=== PATIENT | female | born 1965 | race Caucasian/White ===

== ENCOUNTER → 2018-01-20 13:27 | Outpatient (CLI) | payer MEDICARE, MEDICAID, SELFPAY ==
--- NOTE | 2018-01-20 13:36 | HPBI_ITS ---
MAMMOGRAPHY - BILATERAL SCREENING REASON FOR EXAM: Female, 52 years old. Routine annual screening examination. PERTINENT HISTORY: Aunt with breast cancer. TECHNIQUE: Digital bilateral breast chan (3D mammographic acquisition) in the CC and MLO projections. 2-D mediolateral oblique (MLO) and craniocaudad (CC) views of both breasts were obtained. CAD: Full Field Digital Mammography with Computer Added Detection was performed. COMPARISON: Comparison is made with prior examination dated January 11, 2017. FINDINGS: Breast Composition: The breasts are almost entirely fatty. There are no dominant masses or suspicious calcifications. Stable scattered bilateral benign-appearing calcifications. Stable appearance of the benign-appearing bilateral axillary lymph nodes. No other significant abnormalities are identified. There has been no significant change since the prior study. HPBI/SCREENING MAMM (CAD), BILAT IMPRESSION: Stable bilateral screening mammogram. Yearly follow-up mammogram recommended. (A) ASSESSMENT CATEGORY: BIRADS Category 2: Benign. A letter regarding these results will be sent to the patient by the facility within 30 days. Approximately 10% of breast cancers are not detected by mammography. A normal mammogram should not delay biopsy of a clinically suspicious abnormality. [id number] Electronically Signed: Marcello Adams MD at 8:52 EST Tel [phone], Service support ,
== END ==
PROVIDERS: PCP Internal Medicine; Visit Provider Obstetrics & Gynecology
DX: Z12.31 Encounter for screening mammogram for malignant neoplasm of breast (principal)
CPT/HCPCS: 77063; 77067

== ENCOUNTER 2019-11-02 17:20 | Emergency (ER) | payer MEDICARE, SELFPAY ==
[2019-11-02 17:21] VITALS: BP 150/75; PULSE 104; RESP 20; TEMP 36.7; O2SAT 97; BMI 39.9
--- NOTE | 2019-11-02 17:52 | CT_ITS ---
STUDY: CT PELVIS WITH CONTRAST REASON FOR EXAM: Female, 54 years old. Perianal abscess. RADIATION DOSAGE (If Supplied By Facility): CTDIvol = ( 28.21 ) mGy, DLP = ( 958.10 ) mGycm TECHNIQUE: Transaxial imaging of the pelvis was performed without oral contrast. Contrast was administered intravenously. Individualized dose optimization techniques were used for this CT. COMPARISON: None. FINDINGS: Extensive bilateral perirenal abscess is seen with posterior extensions. Soft tissue air and fluid densities extending to both inferior bladder. On the right, greatest dimension of the abscess is approximately 10.3 cm. On the left, greatest dimension of the abscess is approximately 8.1 cm. There is also a 3 cm air-filled cavity that crosses the midline apparently anterior to the anus. There is relatively mild adjacent subcutaneous induration. There is no extension of abscess into the pelvic cavity. Normal urinary bladder. Normal visualized small intestine. Normal visualized colon. There is no pelvic fluid. There is no pelvic lymphadenopathy or mass lesion. Normal visualized uterus. Normal visualized pelvic arteries. Normal osseous structures. CT/Pelvis WITH IV Contrast IMPRESSION: Moderately large complex bilateral perianal abscess, which do not extend into the pelvic cavity. Electronically Signed: Zen Brown MD at 19:00 EST , Service support ,
--- NOTE | 2019-11-02 18:02 | ED.DCSUM_ITS ---
History of Present Illness Chief Complaint: Abscess Informant: Patient Onset: Days - 2-3 Context: Gradual Onset Timing: Continuous Quality: Sore Location: Buttocks/anus Current Severity: Severe Maximum Severity: Severe Worsened by: Sitting, palpation, bowel movement Relieved by: Releasing pressure on affected area Associated Symptoms: Decreased appetite. No fevers or abdominal pain. Narrative: 54-year-old female with a history of boils, presents with what felt like another one, it started in her right buttock close to her anus, quickly spread into both buttocks and around her anal area. She saw nurse practitioner at her PCPs office yesterday, they trey a line around it and put her on Keflex, she states it is worse that she came to the ER. She is a diabetic. - Past Medical History (1) Type 2 diabetes mellitus Status: Chronic (2) COPD (chronic obstructive pulmonary disease) Status: Chronic (3) Hypertension Status: Chronic (4) Hyperlipidemia Status: Chronic Past Medical History - Allergies and Home Meds Allergies/Adverse Reactions: Allergies No Known Allergies Allergy (Verified 11/02/19 17:21) Primary Care Physician: Princess Kwok MD [Primary Care Provider] - Smoking Status: Current every day smoker Review of Systems General: Reports: Malaise. Denies: Chills, Fever, Sweats Eyes: Denies: Visual changes - bilaterally, Diplopia ENT: Denies: Rhinorrhea, Sore throat Cardiovascular: Denies: Chest pain, Palpitations Respiratory: Denies: Dyspnea, Cough, Dyspnea on exertion Gastrointestinal: Reports: Nausea, Diarrhea, - - Rectal and buttock pain. Denies: Abdominal pain, Vomiting, Melena, Hematochezia Genitourinary: Denies: Dysuria, Hematuria, Frequency Musculoskeletal: Denies: Back pain, Swelling, Extremity Pain Skin: Reports: Rash - Redness on buttocks, Abscess. Denies: Wounds Neurological: Denies: Headache, Weakness, Numbness Physical Exam Vital Signs/Narrative: Vital Signs Temp Pulse Resp BP Pulse Ox 11/02/19 17:21 98.1 F 104 H 20 H 150/75 H 97 Inital Vital Signs reviewed: Yes General: Well nourished, Well developed, Obese, No Acute Distress Head: Normocephalic, Atraumatic Eyes: Perrl, EOMI ENT: Moist mucous membranes, No rhinorrhea Neck: Supple, Nontender Cardiovascular: Regular rate, Regular rhythm, No murmurs, Tachycardia - Mild Respiratory: No distress, CTA bilaterally, Chest nontender Abdomen: Soft, Nontender, Nondistended, Normal bowel sounds Rectal: Tenderness - Extremely tender, very limited GEORGI. No discrete abscess seen, entire perianal area is indurated, erythematous, tender. Back: Nontender, Normal Inspection Extremities: Nontender, No edema Skin: No Trauma, Rash - Indurated very tender erythema approximately 14-16 cm in diameter encompassing both medial buttocks and the perianal area, all of which is tender. No discharge from anywhere even on digital rectal exam. Neurological: Alert, Oriented x3, Cranial nerves II-XII grossly intact, Normal Strength, Normal Sensation Psychological: Normal affect, Normal Mood Diagnostic/Tx/Re-eval Impressions Pelvis CT 11/02/19 17:52 IMPRESSION: Moderately large complex bilateral perianal abscess, which do not extend into the pelvic cavity. Electronically Signed: Zen Brown MD at 19:00 EST , Service support , 11/02/19 17:52 CT Pel [Pelvis WITH IV Contrast] [CT] Stat Laboratory Results 11/02/19 11/02/19 18:00 18:00 WBC 32.7 H* RBC 5.15 Hgb 14.3 Hct 44.3 MCV 86.0 MCH 27.8 MCHC 32.3 RDW Std Deviation 44.2 H RDW Coeff of Cecilia 14.0 Plt Count 377 MPV 10.1 Immature Gran % (Auto) 1.100 H Neut % (Auto) 85.7 H Lymph % (Auto) 5.6 L [place] % (Auto) 7.0 Eos % (Auto) 0.2 Baso % (Auto) 0.4 Absolute Neuts (auto) 28.0 H Absolute Lymphs (auto) 1.84 Nucleated RBC % 0 Differential Comment SCANNED Diff Path Review May foll Sodium 136 Potassium 3.5 Chloride 104 Carbon Dioxide 23.0 Anion Gap 9 BUN 12 Creatinine 0.79 Estim Creat Clear Calc 63.64 Est GFR (MDRD) Af Amer 97 Est GFR (MDRD) Non-Af 80 BUN/Creatinine Ratio 15.2 Glucose 229 H Calcium 10.0 - Medical Decision Making Patient clinically and hemodynamically stable, able to ambulate to and from the bathroom. Clinically appears to be at least perianal abscesses, but could be extensive and with her symptoms and diabetes, CT was obtained. It shows that it is quite large, complex bilateral and perianal without extension further up into the pelvic cavity. She has a white count of 32.7. Vancomycin is ordered. She is not clinically septic. Plan is for admission for further care and likely operative drainage. I think this is too big to get an adequate incision and drainage clinically in the ER. Discussed with Dr. Ruggiero. He reviewed the imaging. There is air in the abscess cavity and quite a bit of it, clinically it is closed. Given that context he feels this patient may have necrotizing fasciitis and needs colorectal surgery which is not available at this hospital. He recommends she be evaluated for operative intervention tonight. Therefore I kept her n.p.o. and in addition to vancomycin added Zosyn and Flagyl. The patient understands, prefers to be sent to [facility] if she needs to be transferred, she is accepted by colorectal to the ER for further evaluation. She is clinically and hemodynamically stable and I see no difference in the erythema compared with the line that was drawn yesterday, and my initial evaluation on reexam. ED Disposition - Plan for ED Patient: Disposition: [facility] Diagnosis: Perianal abscess Referrals: Princess Kwok MD [Primary Care Provider] -
[2019-11-02] MEDS: Ondansetron 4 MG/2 ML Vial IV (18:07)
[2019-11-02] MEDS: Morphine 4 MG/ML Syringe IV ×2 (18:07→21:41)
[2019-11-02 18:16] LABS: Absolute Lymphocyte Count 1.84 X10^3/uL (0.83-4.51); Basophil# 0.14 X10^3/uL; Basophil% 0.4 % (0-1); Eosinophil# 0.08 X10^3/uL; Eosinophils% 0.2 % (0-5); Hematocrit 44.3 % (37-47); Hemoglobin 14.3 g/dL (12.0-15.0); Lymphocyte # 1.84 X10^3/ul (4.0); Lymphocyte % 5.6 % (19-41); Mean Corp Hgb Conc 32.3 g/dL (32-36); Mean Corpuscular Hgb 27.8 pg (27.0-32.0); Mean Platelet Vol. 10.1 fl (6.2-12.0); Monocyte# 2.28 X10^3/uL; NRBC Flagged by Analyzer 0 % (0-5); Neutrophil # 27.97 X10^3/uL (2.7-7.7); Neutrophil % 85.7 % (47-70); POSITIVE COUNT YES; POSITIVE DIFFERENTIAL YES; Platelet Count 377 K/mm3 (150-450); RBC Distribution Width SD 44.2 fl (35.1-43.9); Red Blood Count 5.15 M/mm3 (4.2-5.4)
[2019-11-02 18:32] LABS: Anion Gap 9 (5-15); BUN 12 mg/dL (7-18); BUN/Creat Ratio 15.2 RATIO (10-20); Chloride 104 mmol/L (98-107); Creatinine, Serum 0.79 mg/dL (0.55-1.02); EST Glomerular Filtration Rate 80 mL/min (>60); Est Glom Filt Rate - Afr Amer 97 mL/min (>60); Estimated Creatinine Clearance 63.64 ml/min; Glucose 229 mg/dL (74-106); Potassium 3.5 mmol/L (3.5-5.1); Sodium Level 136 mmol/L (136-145)
[2019-11-02 19:01] LABS: Differential Indicated SCAN CRITERIA MET; White Blood Count 32.7 K/mm3 (4.4-11.0)
[2019-11-02 19:03] LABS: Differential Comment SCANNED
[2019-11-02 21:45] VITALS: BP 151/81; PULSE 91; RESP 18; O2SAT 97
[2019-11-03 12:33] LABS: Pathologist Review Reviewed
== END 2019-11-02 21:46 | disposition short-term general hospital (02) ==
PROVIDERS: Emergency Provider Emergency Medicine; Family Provider Internal Medicine; PCP Internal Medicine
DX: K61.0 Anal abscess (principal); E11.9 Type 2 diabetes mellitus without complications; J44.9 Chronic obstructive pulmonary disease, unspecified; I10 Essential (primary) hypertension; E78.5 Hyperlipidemia, unspecified; F17.200 Nicotine dependence, unspecified, uncomplicated; E66.9 Obesity, unspecified; Z79.2 Long term (current) use of antibiotics; Z79.84 Long term (current) use of oral hypoglycemic drugs; Z79.899 Other long term (current) drug therapy
CPT/HCPCS: 72193; 80048; 85025; 96361; 96365; 96366; 96367; 96375; 96376; 99285; J7030; J7040; Q9967; J2405

== ENCOUNTER → 2019-12-15 12:57 | Outpatient (CLI) | payer MEDICARE, SELFPAY ==
[2019-11-30 10:56] VITALS: BMI 40.0
--- NOTE | 2019-12-15 12:59 | ECHOCS_ITS ---
Reason For Study: Pre Op Procedure This was a 2D Doppler, Color Flow transthoracic echocardiogram. The study was technically difficult. Contrast injection was performed. Exam performed in department. Left Ventricle Severe concentric left ventricular hypertrophy. Moderate assymetric septal hypertrophy. The estimated ejection fraction is 75 %. No regional wall motion abnormalities noted. Right Ventricle Normal size and thickness. Normal systolic function. Atria Normal left atrium. Normal right atrium. Normal atrial septum. Mitral Valve The mitral valve is structurally normal. No prolapse or stenosis seen. No evidence of AC. Tricuspid Valve Normal tricuspid valve. Unable to estimate RV systolic pressure due to insufficient tricuspid regurgitant envelope. Aortic Valve Normal aortic valve. Trisinus/trileaflet aortic valve. Pulmonic Valve Normal pulmonic valve. Great Vessels Normal aortic root. Normal arch. Normal inferior vena cava. Inferior vena cava collapse with sniff. Pericardium/Pleural No pericardial effusion. Medication 22 gauge I.V. with prn adaptor inserted into left arm. Diluted definity 2ml given slow IV push to enhance endocardial definition. MMode/2D Measurements & Calculations LVIDd: 3.5 cm IVSd: 1.9 cm LVOT diam: 2.1 cm LVIDs: 2.5 cm LVPWd: 1.9 cm RVDd: 3.0 cm FS: 29.4 % LVOT area: 3.5 cm2 LAV(MOD-bp): 44.7 ml LA A4 area: 16.9 cm2 RA A4 area: 11.7 cm2 LAV(MOD-bp) Indexed: 23.1 ml/m2 LAV(MOD-sp2): 45.9 ml LAV(MOD-sp4): 38.2 ml Time Measurements MV dec time: 0.20 sec Doppler Measurements & Calculations MV E max amol: 51.6 cm/sec Lat Peak E' Amol: 5.7 cm/sec Med Peak E' Amol: 8.1 cm/sec MV A max amol: 99.7 cm/sec E/E' lat: 9.0 E/E' med: 6.4 MV E/A: 0.52 MV V2 max: 117.5 cm/sec MV P1/2t max amol: 73.2 cm/sec Ao V2 max: 145.4 cm/sec MV max P.5 mmHg MV P1/2t: 66.1 msec Ao max P.5 mmHg MV V2 mean: 61.4 cm/sec MV dec slope: 324.3 cm/sec2 Ao V2 mean: 93.7 cm/sec MV mean P.8 mmHg Ao mean P.1 mmHg MV V2 VTI: 18.8 cm MVA(P1/2t): 3.3 cm2 Ao V2 VTI: 23.8 cm MVA(VTI): 3.8 cm2 HEMALATHA(I,D): 3.0 cm2 HEMALATHA(V,D): 2.6 cm2 LV V1 max: 106.1 cm/sec SV(LVOT): 72.3 ml PA V2 max: 64.5 cm/sec LV V1 max P.5 mmHg LV V1 mean P.4 mmHg LV V1 mean: 70.8 cm/sec LV V1 VTI: 20.4 cm Interpretation Summary Severe concentric left ventricular hypertrophy. The estimated ejection fraction is 75 %. No evidence of AC. Unable to estimate RV systolic pressure due to insufficient tricuspid regurgitant envelope. The study was technically difficult. Contrast injection was performed. Ordering Physician: Torin Whittington Referring Physician: Princess Kwok Performed By: Inderjit Gutierrez RCS
== END ==
PROVIDERS: Family Provider Internal Medicine; PCP Internal Medicine; Referring Provider Internal Medicine Cardiovascular Disease; Visit Provider Internal Medicine Cardiovascular Disease
DX: Z01.810 Encounter for preprocedural cardiovascular examination (principal); Q24.8 Other specified congenital malformations of heart; R00.2 Palpitations; I10 Essential (primary) hypertension; E11.9 Type 2 diabetes mellitus without complications; E78.5 Hyperlipidemia, unspecified; G47.33 Obstructive sleep apnea (adult) (pediatric); J44.9 Chronic obstructive pulmonary disease, unspecified
CPT/HCPCS: 93306; Q9957; A4216; C8929

== ENCOUNTER → 2019-12-30 10:26 | Outpatient (CLI) | payer MEDICARE, SELFPAY ==
[2019-11-30 10:56] VITALS: BMI 40.0
--- NOTE | 2019-12-30 10:26 | STEWCON_ITS ---
Reason For Study: PEROPERATIVE Stress Results Protocol: Riccardo Protocol WITH DEFINITY Maximum Predicted HR: 165 bpm Target HR: 140 bpm % Maximum Predicted HR: 73 % DurationHeart Rate Stage (mm:ss) (bpm) BP BASELINE 88 152/98 STAGE 1 5:02 116 164/90 STAGE 2 (MANUAL) 1:42 120 182/82 RECOVERY 86 152/98 Stress Duration: 6:44 mm:ss Maximum Stress HR: 120 bpm Baseline Echocardiogram Findings The estimated ejection fraction is 65 %. Stress Echo Wall motion Data Resting WM Intermediate WM Stress WM Resting Wall Motion Wall Motion Stress No regional wall motion No regional wall motion abnormalities noted. abnormalities noted. EKG Data The baseline ECG displays normal sinus rhythm. The patient exercised according to the regular Riccardo protocol for a total duration of 6:44. The maximum heart rate attained was 120 beats per minute. This was 72% of maximum predicted heart rate. The patient exercised into stage 2 of the Riccardo protocol. During stress, there were no ST or T wave changes noted to suggest ischemia. No clinical angina was noted. Interpretation Summary The estimated ejection fraction is 65 %. Normal, adequate, treadmill echocardiogram. Negative for ischemia by EKG and echocardiographic criteria. No anginal symptoms noted. Rare PVCs noted. Hypertensive blood pressure response to exercise. Below average exercise capacity for age. Test terminated due to dyspnea and leg discomfort and fatigue. Although the patient did not reach target heart rate, heart rate pressure product of 21,294 demonstrated an adequate testing. Decrease sensitivity due to poor echo windows requiring Definity agent. Patient tolerated procedure well. No complications. The study was technically difficult. Contrast injection was performed. Ordering Physician: Torin Whittington Referring Physician: Torin Whittington Performed By: Macey Nelson RDCS
== END ==
PROVIDERS: Family Provider Internal Medicine; PCP Internal Medicine; Referring Provider Internal Medicine Cardiovascular Disease; Visit Provider Internal Medicine Cardiovascular Disease
DX: Z01.810 Encounter for preprocedural cardiovascular examination (principal); I10 Essential (primary) hypertension; E11.9 Type 2 diabetes mellitus without complications; E78.5 Hyperlipidemia, unspecified; G47.33 Obstructive sleep apnea (adult) (pediatric); Q24.8 Other specified congenital malformations of heart; J44.9 Chronic obstructive pulmonary disease, unspecified; R00.2 Palpitations
CPT/HCPCS: 93017; 93350; Q9957; A4216; C8928

== ENCOUNTER → 2020-06-28 13:02 | Outpatient (CLI) | payer MEDICARE, SELFPAY ==
[2020-06-01 10:59] VITALS: BMI 44.0
[2020-06-28 15:19] LABS: Hematocrit 45.8 % (37-47); Hemoglobin 14.3 g/dL (12.0-15.0); Mean Corp Hgb Conc 31.2 g/dL (32-36); Mean Corpuscular Hgb 28.1 pg (27.0-32.0); Mean Corpuscular Volume 90.2 fL (81-99); Mean Platelet Vol. 10.1 fl (6.2-12.0); Platelet Count 350 K/mm3 (150-450); RBC Distribution Width CV 13.4 % (11.6-14.6); Red Blood Count 5.08 M/mm3 (4.2-5.4); White Blood Count 15.4 K/mm3 (4.4-11.0)
[2020-06-28 15:35] LABS: Anion Gap 7 (5-15); BUN 12 mg/dL (7-18); BUN/Creat Ratio 15.8 RATIO (10-20); Chloride 102 mmol/L (98-107); Creatinine, Serum 0.76 mg/dL (0.55-1.02); EST Glomerular Filtration Rate 84 mL/min (>60); Est Glom Filt Rate - Afr Amer 102 mL/min (>60); Glucose 315 mg/dL (74-106); Potassium 3.8 mmol/L (3.5-5.1); Sodium Level 134 mmol/L (136-145)
[2020-06-28 15:41] LABS: Hemoglobin A1c 10.5 % (3.8-5.6)
== END ==
PROVIDERS: PCP Internal Medicine; Referring Provider Physician Assistant; Visit Provider Physician Assistant
DX: Z01.818 Encounter for other preprocedural examination (principal); I10 Essential (primary) hypertension; E11.65 Type 2 diabetes mellitus with hyperglycemia
CPT/HCPCS: 36415; 80048; 83036; 85027

== ENCOUNTER → 2020-09-01 15:45 | Outpatient (CLI) | payer MEDICARE, MEDICAID, SELFPAY ==
[2020-06-01 10:59] VITALS: BMI 44.0
--- NOTE | 2020-09-01 16:00 | RAD_ITS ---
STUDY: X-RAY - LUMBAR SPINE REASON FOR EXAM: Female, 55 years old. low back pain TECHNIQUE: 5 view(s) of the lumbar spine were obtained. COMPARISON: None FINDINGS: Normal lumbar lordosis. There is no substantial scoliosis. There is a normal alignment of the vertebrae. There is multilevel endplate spondylosis of the lumbar vertebrae. Loss of disc space at L2-L3, L4-L5 and L5-S1, with facet arthropathy in the lower levels. Laminectomies with posterior fusion and disc spacer at L3-L4. There is no demonstrated fracture. There is no demonstrated spondylolysis of the pars interarticulares. The soft tissue structures are unremarkable. RAD/L/S Spine Min 4 Views IMPRESSION: 1. L3-L4 posterior fusion with laminectomy. 2. Degenerative disc disease at L2-L3, L4-L5 and L5-S1 with facet arthropathy. Electronically Signed: Dorian Merino MD ([place]) at 12:29 EDT , Service support ,
[2020-09-01 17:25] LABS: Amphetamine Urine VISTA NEGATIVE (<1000 ng/mL); Barbiturate Urine VISTA NEGATIVE (< 200 ng/mL); Benzodiazepine Urine VISTA NEGATIVE (< 200 ng/mL); Cocaine Urine VISTA NEGATIVE (< 300 ng/mL); Ecstacy Urine VISTA NEGATIVE (< 500 ng/mL); Methadone Urine VISTA NEGATIVE (< 300 ng/mL); PCP Urine VISTA NEGATIVE (< 25 ng/mL); THC Urine VISTA NEGATIVE (< 50 ng/mL); Vista UDS pH Range 5
== END ==
PROVIDERS: PCP Internal Medicine; Referring Provider Anesthesiology; Visit Provider Anesthesiology
DX: M54.16 Radiculopathy, lumbar region (principal); M96.1 Postlaminectomy syndrome, not elsewhere classified; F11.20 Opioid dependence, uncomplicated
CPT/HCPCS: 72110; 80307

== ENCOUNTER → 2020-09-13 07:04 | Outpatient (CLI) | payer MEDICARE, MEDICAID, SELFPAY ==
[2020-06-01 10:59] VITALS: BMI 44.0
--- NOTE | 2020-09-13 07:21 | MRI_ITS ---
STUDY: MRI LUMBAR SPINE WITH AND WITHOUT CONTRAST REASON FOR EXAM: Female, 55 years old. radiculopathy, post lami syndrome, LBP, LEFT LEG PAIN TECHNIQUE: Standardized fat and water weighted pulse sequences were obtained in the sagittal and axial planes. IV DOTAREM 20ML was administered for the contrast portion of the examination. COMPARISON: None FINDINGS: T12-L1: Normal endplates. Normal disc height, hydration and morphology. Normal bilateral facet joints. Normal central canal and bilateral lateral recesses. Normal bilateral intervertebral neural foramina. Normal lumbar lordosis. There is no substantial scoliosis. Normal conus medullaris that terminates at the L1/L2. L1-2: Normal endplates. Normal disc height, hydration and morphology. Normal bilateral facet joints. Normal central canal and bilateral lateral recesses. Normal bilateral intervertebral neural foramina. L2-3: Normal endplates. Normal disc height, hydration and morphology. Normal bilateral facet joints. Normal central canal and bilateral lateral recesses. Normal bilateral intervertebral neural foramina. L3-4: Status post discectomy, interbody fusion, posterior decompression, and transpedicular fixation with anatomic alignment and no spinal stenosis or neural foraminal stenosis. L4-5: Mild bilateral facet hypertrophy and ligament flavum hypertrophy. Mild broad disc protrusion produces mild spinal stenosis with mild bilateral lateral recess stenosis and mild bilateral neural foraminal stenosis. L5-S1: Mild bilateral facet hypertrophy. 5 mm retrolisthesis of L5 on S1 with a mild broad disc protrusion and a large right paracentral disc extrusion produces moderate spinal stenosis, moderate right lateral recess stenosis with abutment of the right S1 nerve root and moderate bilateral neural foraminal stenosis. Normal visualized sacral ala. Normal visualized paraspinous soft tissue structures. There is no demonstrated abnormal enhancement. MRI/Spine Lumbar W/WO Contrast IMPRESSION: Postsurgical changes and degenerative disc disease as described above. Electronically Signed: Kyle Loza MD at 11:30 EDT Tel , Service support ,
== END ==
PROVIDERS: PCP Internal Medicine; Referring Provider Anesthesiology; Visit Provider Anesthesiology
DX: M54.16 Radiculopathy, lumbar region (principal); M96.1 Postlaminectomy syndrome, not elsewhere classified
CPT/HCPCS: 72158; A9575

== ENCOUNTER 2020-11-01 07:46 | Outpatient (RCR) | payer MEDICARE, SELFPAY ==
[2020-06-01 10:59] VITALS: BMI 44.0
--- NOTE | 2020-11-01 08:53 | HP.PTEVAL ---
Patient's Visit Information OSVALDO PERALES is a 55 year old F referred to Physical Therapy by Dr. Killian Eli MD with a diagnosis of LBP,RADICULOPATHY LUMBAR REGION. Date of Evaluation: 11/01/20 Physical Therapist: Martín Botello, PT, Cert MDT, OCS - Visit Plan Frequency: 2x /Week Duration: 4 Weeks Plan: PT INTERVENTION AQUATIC THERAPY FOR LUMBAR ROM,LE STRENGTHENING,POSTURAL EX'S,DLS AND LE FLEXABITY - Subjective This 55 y/o female presents to physical therapy with lumbar radiculopathy. Patient has had LBP and and leg symptoms since 2010. Patient symptoms incidous onset no trauma or injury. Patient ocation is symmtrical lumbar L>R lateral aspects. Pain desribed as sharp ache .Seen pain management plans to do epidural injections.Provided arrthritis CELEBREX. Pateint had MRI and x-rays in Oct showed DDD 5mm retrolotheisis and protruding disc. Pateint has h/o of epidutral injections in past in [facility]. Aggravating factors bending,lifting,wailking ,standing sitting ,driving . Alleviating factors rest ,pushing cart. C/O parathesia tingling L> R . coughing/sneezing -. Bowel/bladder -. Patient PT in past water ex's.Patient symptoms affects ability to work affects housework tasks. Patient symptoms affecst QOL.Patient has h/o lumbar fusion 2010. SOCIAL: . VOCATION: disability - Pain Bilateral Back Pain Intensity (Out of 10): 8 Pain Intensity Range: 10 Bilateral Lower Extremity Pain Intensity (Out of 10): 8 Pain Intensity Range: 10 - Objective POSTURE: mild foward posture. GAIT: reciprocal pattern antalgic gait mild foward posture. NEURO:c/o parathesia/tingling in legs,reflexes L3-4,4-5,L5-S1 1/3. PALAPTION: tender L-S R>L. MMT: quads/hams 4-/5,hip flexion 3+/5 ,ankle 4/5. FLEXABLITY: hams mod tight. LUMBAR ROM: flexion mod loss pain,extension mod loss pain ,side glides mod loss. SYMMTRIES: align - Special Tests L/S Slump test left side: Negative L/S Slump test right side: Negative L/S Left Straight Leg Raise: Positive L/S Right Straight Leg Raise: Positive Lumbar Standing: Flexion - Mechanical Response: No effect Lumbar Standing: Flexion - Symptoms During Testing: Increases Lumbar Standing: Flexion - Symptoms After Testing: Worse Lumbar Standing: Extension - Mechanical Response: No effect Lumbar Standing: Extension - Symptoms During Testing: Increases Lumbar Standing: Extension - Symptoms After Testing: Worse Lumbar Standing: Right Side Glides - Mechanical Response: No effect Lumbar Standing: Right Side [place] - Symptoms During Testing: No effect Lumbar Standing: Right Side [place] - Symptoms After Testing: No effect Lumbar Standing: Left Side [place] - Mechanical Response: No effect Lumbar Standing: Left Side [place] - Symptoms During Testing: No effect Lumbar Standing: Left Side [place] - Symptoms After Testing: No effect - Goals Goal 1:: I with Aquatic therapy program Goal Time Frame: 4-6 Weeks Goal 2:: Decrease lumbar radiculopathy by 40 % or > to improve function and ADL's. Goal Time Frame: 4-6 Weeks Goal 3:: Patient to improve lumbar ROM for function of recovery Goal Time Frame: 4-6 Weeks Goal 4:: Patient to increase strength BLE by 4/5 to improve function with standing and walking Goal Time Frame: 4-6 Weeks Goal 5:: Patient to improve back owestry score by 5 points or > to improve function. Goal Time Frame: 4-6 Weeks - Rehabilitation Potential Physical Therapy Diagnosis: This patient has h/o lumbar fusion 2011 with impairments with pain,loss ROM ,decrease strength BLE ,weakness core stabilizers thus will benifit from skilled PT Rehabilitation Potential: Good - Anticipated Interventions Patient/Client Instruction: Educate patient on: Condition, Plan of Care For the Purpose of:: To decrease pain, To increase ROM, To improve muscle performance and motor function, To improve ability to perform ADL's, To increase tolerance to activity/condition/position, To improve performance and independence with ADL's, To improve ability of physical actions for home/community/work/leisure, To improve gait and locomotor functions, To decrease soft tissue restriction, To increase flexibility/ROM, To improve health and function, To improve ability to perform tasks related to life management Therapeutic Exercise to Include: Strength training, Postural training, Flexibilty training, In an aquatic setting, Dynamic Lumbar Stabilization For the Purpose of:: To decrease pain, To improve muscle performance and motor function, To increase tolerance to activity/condition/position, To improve performance and independence with ADL's, To improve ability of physical actions for home/community/work/leisure, To improve health of tissue, To decrease soft tissue restriction, To increase flexibility/ROM, To reduce risk of recurrence, To improve ability to perform tasks related to life management Thank you for the opportunity to evaluate your patient. For Medicare and Medicare HMO plans, please review the plan of care and approve it. It will need to be FAXED BACK to us at [phone] for Medicare purposes. For Medicare only, by signing this I certify the plan of care. Please let me know if there are questions or concerns regarding this plan of care. Physician Signature: Date:
== END 2020-11-01 19:00 | disposition home or self-care (01) ==
LOC: PT 07:46
PROVIDERS: PCP Internal Medicine; Referring Provider Anesthesiology; Visit Provider Anesthesiology
DX: M54.16 Radiculopathy, lumbar region (principal)
CPT/HCPCS: 97162

== ENCOUNTER → 2021-01-12 20:16 | Outpatient (CLI) | payer MEDICARE, MEDICAID, SELFPAY ==
[2020-12-21 10:16] VITALS: BMI 50.6
== END ==
PROVIDERS: PCP Internal Medicine; Visit Provider Internal Medicine Critical Care Medicine
DX: G47.33 Obstructive sleep apnea (adult) (pediatric) (principal)
CPT/HCPCS: 95811

== ENCOUNTER → 2021-02-13 12:11 | Outpatient (CLI) | payer MEDICARE, MEDICAID, SELFPAY ==
[2020-12-21 10:16] VITALS: BMI 50.6
[2021-02-13 12:51] VITALS: PULSE 101; PULSE 105; PULSE 106; PULSE 107; PULSE 108; PULSE 89; PULSE 91; PULSE 96; O2SAT 92; O2SAT 93; O2SAT 94
--- NOTE | 2021-02-13 12:54 | CPS ---
Pt took a rest during the 2,3,and 4 minutes due to back and leg pain.
--- NOTE | 2021-02-13 13:51 | WT_ITS ---
PSN 6 Minute Walk Test - 6 Minute Walk Test 6 Minute Walk Test: 6 Minute Walk Test PSN:6-Minute Walk Test Start: 02/13/21 12:50 Freq: Status: Active Protocol: RESP.6MINW Document 02/13/21 12:51 [facility] (Rec: 02/13/21 12:57 [facility] [id number]) 6 Minute Walk Test Date Performed 02/13/21 Time Performed 12:30 Height 5 ft 2 in Weight: 102.965 kg Weight in Pounds 227.[address]: Dr Alvares Assistive device used: None Pre-test Oxygen Delivery Method Room Air Pulse Ox (%) 94 Pulse Rate (60-100 beats/min) 89 Dyspnea Sea Scale (0-10) 0.5 Exertion Sea Scale (6-20) 6 1st minute Oxygen Delivery Method Room Air Pulse Ox (%) 93 Pulse Rate (60-100 beats/min) 101 H 2nd minute Oxygen Delivery Method Room Air Pulse Ox (%) 93 Pulse Rate (60-100 beats/min) 105 H Number of Rests Taken 1 3rd minute Oxygen Delivery Method Room Air Pulse Ox (%) 92 Pulse Rate (60-100 beats/min) 96 Number of Rests Taken 1 4th minute Oxygen Delivery Method Room Air Pulse Ox (%) 93 Pulse Rate (60-100 beats/min) 106 H Number of Rests Taken 1 5th minute Oxygen Delivery Method Room Air Pulse Ox (%) 93 Pulse Rate (60-100 beats/min) 107 H 6th minute Oxygen Delivery Method Room Air Pulse Ox (%) 92 Pulse Rate (60-100 beats/min) 108 H Dyspnea Sea Scale (0-10) 2 Exertion Sea Scale (6-20) 11 Post-test Oxygen Delivery Method Room Air Pulse Ox (%) 94 Pulse Rate (60-100 beats/min) 91 Full Laps Walked 13 Partial Lap, Number of Tiles Walked 0 Total Distance Walked (ft) 767 02/13/21 12:54 Cardiopulmonary Services by Amber Grimaldo Pt took a rest during the 2,3,and 4 minutes due to back and leg pain. Initialized on 02/13/21 12:54 - END OF NOTE - Interpretation Interpretation: The patient was able to ambulate a total of 767 feet over the course of 6 minutes on room air with no assistive devices, but 3 breaks associated with back and leg pain. Patient did not experience significant desaturation and had an oxygen ashwin of 92%. Patient did have an element of tachycardia as high as 108 bpm. These findings are consistent with a musculoskeletal limitation exercise tolerance. - Recommendations Recommendations: No supplemental oxygen is indicated at this time. However, patient will need to be followed closely if musculoskeletal status improves.
== END ==
PROVIDERS: PCP Internal Medicine; Referring Provider Internal Medicine Critical Care Medicine; Visit Provider Internal Medicine Critical Care Medicine
DX: J44.9 Chronic obstructive pulmonary disease, unspecified (principal)
CPT/HCPCS: 94618

== ENCOUNTER → 2021-02-15 06:44 | Outpatient (CLI) | payer MEDICARE, MEDICAID, SELFPAY ==
[2020-12-21 10:16] VITALS: BMI 50.6
--- NOTE | 2021-02-15 15:30 | PFTCOMP_ITS ---
COMPLETE PULMONARY FUNCTION TEST INTERPRETATION Brief HPI: Patient is a 55 year old female, currently under the care of Dr. Alvares, who presents to [facility] for complete pulmonary function tests secondary to diagnosis of COPD. Respiratory therapist reports good effort and reproducible results. Interpretation: Forced expiration spirometry shows a moderate large airways obstructive ventilatory defect with an FEV1 of 65% predicted. There is no significant bronchodilator response by strict ATS criteria. Spirograms are of good quality and plateau slowly, indicating slowly emptying areas of the lungs. The respiratory flow volume loop shows decreased expiratory flow rates at high lung volumes consistent with small airways obstruction. Lung volumes by body plethysmography show an elevated total lung capacity at 5.59 L, 123% predicted. FRC and RV are elevated out of proportion. Lung volume measurements are consistent with hyperinflation and air-trapping. Diffusion capacity by carbon monoxide is normal at 80% predicted. The airway resistance is elevated. No previous pulmonary function tests were available for review. Impression: Irreversible moderate large airways obstructive ventilatory defect resulting in air trapping with hyperinflation
== END ==
PROVIDERS: PCP Internal Medicine; Referring Provider Internal Medicine Critical Care Medicine; Visit Provider Internal Medicine Critical Care Medicine
DX: J44.9 Chronic obstructive pulmonary disease, unspecified (principal)
CPT/HCPCS: 94060; 94726; 94729

== ENCOUNTER 2022-03-01 12:18 | Emergency (ER) | payer MEDICARE, MEDICAID, SELFPAY ==
[2022-03-01 12:19] VITALS: BP 187/105; PULSE 92; RESP 22; TEMP 36; O2SAT 94; BMI 39.9
--- NOTE | 2022-03-01 12:53 | EDS_ITS ---
HPI History of Present Illness Chief Complaint: Back Informant: patient Onset/Context/Timing Onset: Yesterday Injury: - (Getting out of car) Timing: Continuous Quality: Aching Location: Lumbar, Buttock and Left Leg Current Severity: Severe Maximum Severity: Severe Worsened by: improves with Bending Relieved by: Nothing Associated Symptoms Associated Symptoms: Radiation to Left Leg (To the ankle); Negative for Numbness, Tingling, Unable to Ambulate, Unable to Transfer, Urinary Retention, Urinary Incontinence, Constipation and Fecal Incontinence Narrative Narrative: Patient had a history of degenerative disc disease in her lumbosacral spine, she had remote surgery when she lived in [place] in her lumbar spine with some hardware there. She recently rode home from [place], they got home last night, she was out of the car several times on the way to use the restroom, but when she got out of the car at home last night she had sudden onset of this pain into her left buttock and down the left lower extremity. No weakness or numbness, no saddle anesthesia. [facility] Medical History (Updated 03/01/22 @ 14:[address] Luis M Morillo MD) COPD (chronic obstructive pulmonary disease) Essential hypertension Hyperlipidemia Left ventricular outflow obstruction Obstructive sleep apnea Palpitations Perirectal abscess (11/03/19) Pre-operative cardiovascular examination Type 2 diabetes mellitus Home Medications albuterol sulfate 1 aer IH Q4H PRN PRN 11/02/19 [History Last Taken Unknown] atorvastatin 40 mg PO DAILY 11/02/19 [History Last Taken Unknown] glimepiride 4 mg PO BID 11/02/19 [History Last Taken Unknown] losartan 100 mg PO DAILY 11/02/19 [History Last Taken Unknown] metformin 1,000 mg PO BID 11/02/19 [History Last Taken Unknown] sertraline 100 mg PO DAILY 11/02/19 [History Last Taken Unknown] umeclidinium 1 puff IH DAILY 11/02/19 [History Last Taken Unknown] ammonium lactate 5 % lotion 1 applic TOPICAL QD-BID PRN 11/18/19 [History Last Taken Unknown] aspirin 81 mg tablet,delayed release 81 mg PO DAILY 11/18/19 [History Last Taken Unknown] cyclobenzaprine 10 mg tablet 10 mg PO TID PRN 11/18/19 [History Last Taken Unknown] fluticasone 250 mcg-salmeterol 50 mcg/dose blistr powdr for inhalation 1 inh INHALATION BID 11/18/19 [History Last Taken Unknown] nitroglycerin 0.4 mg sublingual tablet 0.4 mg SUBLINGUAL Q5-15M PRN 11/18/19 [History Last Taken Unknown] omeprazole 20 mg capsule,delayed release 20 mg PO DAILY 11/18/19 [History Last Taken Unknown] oxybutynin chloride 10 mg tablet,extended release 24 hr 10 mg PO DAILY 11/18/19 [History Last Taken Unknown] saxagliptin 5 mg tablet 5 mg PO DAILY 11/18/19 [History Last Taken Unknown] loperamide 2 mg capsule 2 mg PO Q1-4H PRN 11/30/19 [History Last Taken Unknown] verapamil 120 mg tablet,extended release 120 mg PO BID #180 tab 06/01/20 [Rx Last Taken Unknown] hydrochlorothiazide 12.5 mg tablet 12.5 mg PO DAILY #90 tab 12/11/20 [Rx Last Taken Unknown] cyclobenzaprine 10 mg PO TID PRN #20 tablet 03/01/22 [Rx Last Taken Unknown] hydrocodone-acetaminophen 1 tab PO Q4H PRN PRN 3 Days #15 tablet 03/01/22 [Rx Last Taken Unknown] Allergy/AdvReac Type Severity Reaction Status Date / Time meperidine [From Demerol] AdvReac Severe Behavioral Verified 03/01/22 12:19 change Family History Mother CAD (coronary artery disease) Stented coronary artery Hypertension Renal cancer Surgical History H/O tubal ligation History of back surgery Social History Smoking Status: Current every day smoker tobacco type: cigarettes ROS ROS ED Constitutional Constitutional ED: Denies chills or fever(s) Gastrointestinal Gastrointestinal: Denies abdominal pain, constipation, fecal incontinence, nausea or vomiting Genitourinary Genitourinary ED: Reports other Details: no urinary retention ; Denies abdominal discomfort or urinary incontinence Musculoskeletal Musculoskeletal: Reports as per HPI and back pain; Denies neck pain Integumentary Denies rash or wounds Neurologic Neurologic: Denies headache(s), paresthesias or weakness EXAM Physical Exam Const Vital Signs: 03/01/22 12:19 Temperature 96.8 F L Temperature Source Temporal Pulse Rate 92 Respiratory Rate 22 H Blood Pressure 187/105 H Blood Pressure Mean 132 Pulse Ox 94 Oxygen Delivery Method Room Air Positive well nourished, well developed and obese Constitutional Narrative: Walking around the room in mild acute painful distress, tearful General Appearance ED: well developed Nutritional Appearance: obese HEENT Negative for trauma or tenderness Eyes PERRL and EOMs intact bilaterally Neck full ROM and supple GI normal to inspection, nondistended, normoactive bowel sounds, soft to palpation and non-tender Back/Spine normal to inspection Back/Spine Narrative: Straight leg raises performed while sitting, negative ipsilateral and cross straight leg raises, ipsilateral causing increased low back discomfort only no radicular symptoms. Tender in left sciatic notch/buttock, no other low back tenderness. Well-healed surgical scar midline lumbar sacral Lumbar Spine / Lower Back: ROM limited and straight leg raise negative bilaterally Extremity normal to inspection, full ROM and no pedal edema Neuro oriented x3 and no sensory deficits noted Sensorium / Orientation: alert Motor Exam: strength 5/5 throughout and clonus absent Deep Tendon Reflexes: Rt Patellar (L4): 2+, Lt Patellar (L4): 2+, Rt Ankle (S1): 2+ and Lt Ankle (S1): 2+ Deep Tendon Reflexes Back: Rt Patellar (L4): 2+, Lt Patellar (L4): 2+, Rt Ankle (S1): 2+ and Lt Ankle (S1): 2+ Plantar Reflex: Downgoing: bilateral Psych mental status grossly normal and thought process normal Skin no rashes or lesions noted and no wounds MDM MDM MDM Narrative Medical decision making narrative: X-rays of the lumbosacral spine were obtained, and my interpretation 3 views, there is hardware and degenerative changes but nothing acute. Radiology in agreement. Patient was very hypertensive because she is in a lot of pain. We will recheck that, after treatment with morphine, Norflex, Toradol she is appearing and feeling much better, she is standing and able to walk. She is testing negative for radicular symptoms although her symptoms do radiate down to the ankle. If she has true radiculopathy it is probably due to a disc issue in her low back. She does not have cauda equina syndrome. Will prescribe her analgesics and recommend close outpatient follow-up she is comfortable with that plan. Radiography Diagnostic Testing: Clinical Impression(s) from Imaging Studies Lumbar Spine X-Ray 03/01/22 13:15 IMPRESSION: Degenerative changes of the spine, as detailed above. Status post laminectomy and fusion at the L3-L4 level. There has been no change. Electronically Signed: Marcello Adams MD at 13:59 EDT , Discharge Plan Triage Chief Complaint: Back ED Provider: Luis M Morillo Dx/Rx/DC Orders Clinical Impression: Acute low back pain with left-sided sciatica Instructions: ED Back Pain (Acute or Chronic), ED Sciatica Prescriptions: New hydrocodone-acetaminophen [hydrocodone-acetaminophen] 1 TABLET tablet 1 tab PO Q4H PRN PRN (Reason: Pain) 3 Days Qty: 15 RF: 0 cyclobenzaprine [cyclobenzaprine] 10 MG tablet 10 mg PO TID PRN (Reason: Muscle Spasm) Qty: 20 RF: 0 No Action saxagliptin 5 mg tablet 5 mg PO DAILY RF: 0 omeprazole 20 mg capsule,delayed release(DR/EC) 20 mg PO DAILY RF: 0 cyclobenzaprine 10 mg tablet 10 mg PO TID PRNRF: 0 fluticasone propion-salmeterol [Advair Diskus] 250-50 mcg/dose blister with device 1 inh INHALATION BID RF: 0 oxybutynin chloride 10 mg tablet extended release 24hr 10 mg PO DAILY RF: 0 aspirin [Adult Aspirin Regimen] 81 mg tablet,delayed release (DR/EC) 81 mg PO DAILY RF: 0 ammonium lactate 5 % lotion 5 % lotion 1 applic TOPICAL QD-BID PRNRF: 0 nitroglycerin 0.4 mg tablet, sublingual 0.4 mg SUBLINGUAL Q5-15M PRNRF: 0 loperamide 2 mg capsule 2 mg PO Q1-4H PRNRF: 0 verapamil 120 mg tablet extended release 120 mg PO BID Qty: 180 RF: 3 atorvastatin 40 MG tablet 40 mg PO DAILY RF: 0 albuterol sulfate 2.5 MG/3 ML solution for nebulization 1 aer IH Q4H PRN PRN (Reason: Wheezing) RF: 0 sertraline 100 MG tablet 100 mg PO DAILY RF: 0 metformin 1,000 MG tablet 1,000 mg PO BID RF: 0 glimepiride 4 MG tablet 4 mg PO BID RF: 0 losartan 100 MG tablet 100 mg PO DAILY RF: 0 umeclidinium 62.5 MCG blister with device 1 puff IH DAILY RF: 0 hydrochlorothiazide 12.5 mg tablet 12.5 mg PO DAILY Qty: 90 RF: 3 Primary Care Provider: Princess Kwok Referrals: Princess Kwok MD [Primary Care Provider] - Sergio Whittington DO [STAFF PHYSICIAN] - 10-14 Days if not better Disposition Disposition: Home, Self Care
[2022-03-01] MEDS: Morphine 4 MG/ML Syringe IM (13:01)
[2022-03-01] MEDS: Ketorolac 30 MG/ML Syringe IM (13:02)
[2022-03-01] MEDS: Orphenadrine 60 MG/2 ML Ampul IM (13:02)
--- NOTE | 2022-03-01 13:15 | RAD_ITS ---
STUDY: X-RAY - LUMBAR SPINE REASON FOR EXAM: Female, 56 years old. Pain/injury TECHNIQUE: 3 view(s) of the lumbar spine were obtained. COMPARISON: Comparison is made with prior study 09/01/2020. FINDINGS: There is straightening of the normal lumbar lordosis. There is no substantial scoliosis. There is a normal alignment of the vertebrae. There is multilevel endplate spondylosis of the lumbar vertebrae. There is multi-level degenerative disc disease with multi-level disc space narrowing. The patient is status post laminectomy and fusion at the L3-L4 level. The soft tissue structures are unremarkable. RAD/Lumbar Spine 2 or 3 Views IMPRESSION: Degenerative changes of the spine, as detailed above. Status post laminectomy and fusion at the L3-L4 level. There has been no change. Electronically Signed: Marcello Adams MD at 13:59 EDT ,
== END 2022-03-01 14:21 | disposition home or self-care (01) ==
PROVIDERS: Emergency Provider Emergency Medicine; PCP Internal Medicine; Visit Provider Emergency Medicine
DX: M54.42 Lumbago with sciatica, left side (principal); J44.9 Chronic obstructive pulmonary disease, unspecified; E11.9 Type 2 diabetes mellitus without complications; I10 Essential (primary) hypertension; E78.5 Hyperlipidemia, unspecified; M51.37 Other intervertebral disc degeneration, lumbosacral region; G47.33 Obstructive sleep apnea (adult) (pediatric); F17.210 Nicotine dependence, cigarettes, uncomplicated; Z79.899 Other long term (current) drug therapy; Z79.82 Long term (current) use of aspirin; Z79.84 Long term (current) use of oral hypoglycemic drugs
CPT/HCPCS: 72100; 96372; 99282

== ENCOUNTER → 2023-10-28 | Outpatient (CLI) | payer MEDICARE, MEDICAID, SELFPAY ==
--- NOTE | 2023-10-28 07:24 | CT_ITS ---
ACR Level 3 findings have been noted. An addendum which confirms receipt of the report will follow. STUDY: LOW DOSE CT LUNG CANCER SCREENING REASON FOR EXAM: Female, 58 years old. smoker. One pack per day x43 years. COPD. RADIATION DOSAGE (If Supplied By Facility): CTDIvol = ( 4.02 ) mGy, DLP = ( 126.87 ) mGycm TECHNIQUE: No contrast was administered. Low dose technique was utilized (average mAS-38 and kVp 120). 1.25 mm axial source images with a slice interval of 1.25-mm were reconstructed in lung windows with coronal sagittal reformats COMPARISON: No relevant prior comparison study available NODULES: Nodule #: 1 Density: Solid Lung location: Lateral right upper lobe: 1.3 cm from pleura Location in series: Series Number: 2 Image: 58 Size - D1 x D2 mm: 8 x 8 mm: 8 mm average diameter Margin: Circumscribed Shape: Irregular with mild spiculation Calcification: None Fat: None Temporal comparison: NA Total lung nodules (excluding granulomas): 1 Parenchyma: No airspace consolidation, effusion, or pneumothorax. Endobronchial lesion: Mild diffuse peribronchial thickening. No endobronchial lesion. Aorta: Mild aortic atherosclerosis with mild ascending aortic ectasia at 4.1 cm. CORONARY ARTERIES: Mild multivessel coronary atherosclerosis. Heart: No cardiomegaly or pericardial effusion. Pulmonary artery: No enlargement relative to aorta. Mediastinal nodes: No mediastinal adenopathy by size criteria. No bulky hilar adenopathy Other chest and abdominal findings: Unremarkable thyroid. Unremarkable esophagus. No hiatal hernia. Limited visualization of the upper abdomen. CT/Low Dose CT Lung Screening IMPRESSION: 8 mm lateral right upper lobe irregular nodule with suspicious morphology. Lung-RADS 4A. Recommend pulmonary consultation for consideration of PET/CT versus 3 month follow-up CT. Mild bilateral peribronchial thickening as can be seen with acute or chronic bronchitis. Mild aortic atherosclerosis with ascending aortic ectasia to 4.1 cm. Lung-RADS category 4A (S) - Screening at 3 months with LDCT or evaluation with PET/CT may be used. IMPORTANT NOTES FOR USE: ACR Lung-RADS Version 1.1 Assessment Categories Release Date: 2018 Category: Coded 0-4 bases on nodule(s) with highest degree of suspicion. Negative screen is defined as categories 1 and 2; a positive screen is defined as categories 3 and 4. Category 3 and 4A nodules that are unchanged on interval CT should be coded as category 2, and individuals returned to screening in 12 months. Category 4X: Category 3 or 4 nodules with additional imaging findings that increase the suspicion of lung cancer, such as spiculation, GGN that doubles in size in 1 year, enlarged lymph notes, etc. Category Modifiers: S (significant finding unrelated to lung cancer) Electronically Signed: Ghassan Webb MD at 17:24 EST ,
[2023-10-28 08:00] VITALS: PULSE 101; PULSE 92; PULSE 93; PULSE 96; PULSE 97; PULSE 98; PULSE 99; O2SAT 92; O2SAT 93; O2SAT 94; O2SAT 95; O2SAT 96
--- NOTE | 2023-10-28 17:36 | WT_ITS ---
PSN 6 Minute Walk Test 6 Minute Walk Test 6 Minute Walk Test: 6 Minute Walk Test PSN:6-Minute Walk Test Start: 10/28/23 08:10 Freq: Status: Active Protocol: [id number] Document 10/28/23 08:00 EW (Rec: 10/28/23 08:15 EW [id number]) 6 Minute Walk Test Date Performed 10/28/23 Time Performed 08:00 Height 5 ft 1 in Weight: 94.347 kg Weight in Pounds 208.[address]: Jacey Salas SENIOR ACCOUNT REPRESENTATIVE Assistive device used: None Pre-test Oxygen Delivery Method Room Air Pulse Ox 92 Pulse Rate (60-100) 93 Dyspnea Sea Scale (0-10) 3 Exertion Sea Scale (6-20) 11 1st minute Oxygen Delivery Method Room Air Pulse Ox 93 Pulse Rate (60-100) 99 2nd minute Oxygen Delivery Method Room Air Pulse Ox 94 Pulse Rate (60-100) 97 3rd minute Oxygen Delivery Method Room Air Pulse Ox 93 Pulse Rate (60-100) 101 H Number of Rests Taken 1 4th minute Oxygen Delivery Method Room Air Pulse Ox 95 Pulse Rate (60-100) 98 5th minute Oxygen Delivery Method Room Air Pulse Ox 96 Pulse Rate (60-100) 99 6th minute Oxygen Delivery Method Room Air Pulse Ox 95 Pulse Rate (60-100) 96 Post-test Oxygen Delivery Method Room Air Pulse Ox 95 Pulse Rate (60-100) 92 Dyspnea Sea Scale (0-10) 3 Exertion Sea Scale (6-20) 14 Full Laps Walked 14 Partial Lap, Number of Tiles Walked 26 Total Distance Walked (ft) 852 Interpretation Interpretation: The patient was able to ambulate only 852 feet over the course of 6 minutes on room air with no assistive devices and 2 breaks. The patient experienced no s ignificant desaturation or tachycardia during testing. These findings are consistent with a musculoskeletal limitation exercise tolerance. Recommendations Recommendations: No supplemental oxygen is indicated at this time.
== END | disposition home or self-care (01) ==
LOC: CT 07:22
PROVIDERS: PCP Internal Medicine; Referring Provider Nurse Practitioner Acute Care; Visit Provider Nurse Practitioner Acute Care
DX: Z12.2 Encounter for screening for malignant neoplasm of respiratory organs (principal); J43.9 Emphysema, unspecified; F17.210 Nicotine dependence, cigarettes, uncomplicated
CPT/HCPCS: 71271; 94618

== ENCOUNTER → 2023-12-31 | Outpatient (CLI) | payer MEDICARE, MEDICAID, SELFPAY ==
--- OUTSIDE RECORDS SUMMARY | 2023-12-31 11:29 | XMS RPT_ITS | CCD ---
Author Name Unknown Address [address] [place] [address] Organization [facility] Care Team Providers Care Motor Mechanic Name Role Phone YURIY, MARTA E Unavailable Unavailable YURIY, MARTA E Unavailable Unavailable YURIY, MARTA E Unavailable Unavailable GANTA, PRINCESS BRAD Unavailable Unavailable GANTA, PRINCESS BRAD Unavailable Unavailable PROVIDER, UNKNOWN Unavailable Unavailable Ganta , Princess Primary Care Provider [facility] Keti Unavailable Princess Madrid MD Primary Care Provider [facility], Keti Unavailable [facility], Keti Unavailable OLDER, MERCEDEZ Attending Unavailable GANTA, PRINCESS Primary Care Unavailable OLDER, MERCEDEZ Attending Unavailable GANTA, PRINCESS Primary Care Unavailable GANTA, PRINCESS Referring Unavailable GANTA, PRINCESS Primary Care Unavailable OLDER, MERCEDEZ Attending Unavailable GANTA, PRINCESS Primary Care Unavailable OLDER, MERCEDEZ Referring Unavailable TESTBELINDA CLOUD Attending Unavailable OLDER, MERCEDEZ Referring Unavailable GANTA, PRINCESS Primary Care Unavailable OLDER, MERCEDEZ Referring Unavailable GANTA, PRINCESS Primary Care Unavailable OLDER, MERCEDEZ Referring Unavailable GANTA, PRINCESS Primary Care Unavailable OLDER, MERCEDEZ Referring Unavailable GANTA, PRINCESS Primary Care Unavailable GANTA, PRINCESS Primary Care Unavailable OLDER, MERCEDEZ Referring Unavailable GANTA, PRINCESS Primary Care Unavailable OLDER, MERCEDEZ Attending Unavailable GANTA, PRINCESS Primary Care Unavailable OLDER, MERCEDEZ Referring Unavailable Allergies Allergy Classification Reported Allergen(s) Allergy Type Date of Onset Reaction(s) Facility (20 sources) Meperidine; Translations: [MEPERIDINE] Drug Allergy 11-11-2019 Other: See Comments [facility] Medications Current Medications Medication Drug Class(es) Dates Sig (Normalized) Sig (Original) Albuterol (Eqv-ProAir HFA) 90 mcg/inh inhalation aerosol (1 source) Start: 06-17-2022 take 2 puff(s) by mouth every four hours as needed for wheezing Albuterol (Eqv-ProAir HFA) 90 mcg/inh inhalation aerosol INHALE 2 PUFFS BY MOUTH DIRECTED EVERY 4 HOURS NEEDED FOR WHEEZING OR SHORTNESS OF BREATH Start Date: 06/17/22 Status: Ordered amoxicillin 875 mg / clavulanate 125 mg oral tablet (5 sources) Penicillin-class Antibacterial Start: 04-10-2023 End: 04-20-2023 take 1 tablet by mouth twice daily amoxicillin-clav ulanic acid (AUGMENTIN) 875-125 mg per tablet Take 1 tablet by mouth twice daily for 10 days. 20 tablet 0 04/10/2023 04/20/2023 Active Completed/Discontinued Medications Medication Drug Class(es) Dates Sig (Normalized) Sig (Original) albuterol 0.83 mg/ml inhalation solution (20 sources) beta2-Adrenergic Agonist Start: 01-21-2022 End: 04-08-2023 take 2 puff(s) by inhalation every four hours as needed for wheezing albuterol HFA (VENTOLIN HFA) 90 mcg/actuation inhaler Indications: Pulmonary emphysema, unspecified emphysema type (HCC) Inhale 2 Puffs as instructed every 4 hours as needed for wheezing/shortness of breath. 18 g 2 05/15/2022 04/08/2023 Discontinued Problems Active Problems Problem Classification Problem Date Documented Da te Episodic/Chronic Chronic obstructive pulmonary disease and bronchiectasis (7 sources) Pulmonary emphysema; Translations: [Emphysema, unspecified] Onset: 04-10-2023 Chronic Diabetes mellitus with complications (20 sources) Type 2 diabetes mellitus; Translations: [Type 2 diabetes mellitus with diabetic polyneuropathy] Onset: 12-22-2015 02-07-2016 Chronic Diseases of white blood cells (20 sources) Leukocytosis; Translations: [Elevated white blood cell count, unspecified] Onset: 09-08-2020 09-08-2020 Chronic Disorders of lipid metabolism (20 sources) Hyperlipidemia; Translations: [Hyperlipidemia, unspecified] Onset: 12-22-2015 12-22-2015 Chronic Essential hypertension (20 sources) Essential hypertension; Translations: [Essential (primary) hypertension] Onset: 12-22-2015 12-22-2015 Chronic Immunizations and screening for infectious disease (1 source) Needs influenza immunization; Translations: [Encounter for immunization] Episodic Mood disorders (20 sources) Severe major depression, single episode, without psychotic features; Translations: [Major depressive disorder, single episode, severe without psychotic features] Onset: 01-22-2016 03-28-2021 Chronic Other nutritional; endocrine; and metabolic disorders (20 sources) Body mass index 40+ - severely obese; Translations: [Morbid (severe) obesity due to excess calories] Onset: 04-06-2018 03-28-2021 Chronic Other skin disorders (1 source) Hidradenitis suppurativa 06-17-2022 Episodic Other skin disorders (2 sources) Foot callus; Translations: [Corns and callosities] Episodic Residual codes; unclassified (20 sources) Obstructive sleep apnea syndrome; Translations: [Obstructive sleep apnea (adult) (pediatric)] Onset: 12-22-2015 12-22-2015 Chronic Substance-related disorders (20 sources) Nicotine dependence; Translations: [Nicotine dependence, unspecified, uncomplicated] Onset: 11-05-2019 11-07-2019 Chronic Unclassified (1 source) Patient encounter status 06-17-2022 Past or Other Problems Problem Classification Problem Date Documented Date Episodic/Chronic Noninfectious gastroenteritis (20 sources) Chronic diarrhea; Translations: [Noninfective gastroenteritis and colitis, unspecified] Onset: 09-08-2020 09-08-2020 Episodic Other aftercare (1 source) Other jail (current) drug therapy; Translations: [Medication management] Onset: 12-23-2022 Episodic Other screening for suspected conditions (not mental disorders or infectious disease) (4 sources) Patient encounter status; Translations: [Encounter for screening mammogram for malignant neoplasm of breast] Onset: 12-31-2022 Episodic Other skin disorders (1 source) Corns and callosities; Translations: [Callus of foot] Onset: 12-26-2022 Episodic Other upper respiratory infections (3 sources) Acute sinusitis; Translations: [Acute sinusitis, unspecified] Onset: 04-10-2023 Episodic Skin and subcutaneous tissue infections (20 sources) Abscess of perineum; Translations: [Cutaneous abscess of perineum] Onset: 11-03-2019 11-07-2019 Episodic Spondylosis; intervertebral disc disorders; other back problems (20 sources) Chronic back pain ; Translations: [Dorsalgia, unspecified] Onset: 12-22-2015 12-22-2015 Episodic Results Test Name Value Interpretation Reference Range Facil ity Vital Signs Date Time Vital Sign Value Performing Clinician Kelly schaefer 04-10-2023 07:19-0400 Body weight 96.16 kg Mercedez Older [employer] Work Phone: [facility] 04-10-2023 07:19-0400 Diastolic blood pressure 86 mm[Hg] Mercedez Older [employer] Work Phone: [facility] 04-10-2023 07:19-0400 Heart rate 84 /min Mercedez Older [employer] Work Phone: [facility] 04-10-2023 07:19-0400 Respiratory rate 16 /min Mercedez Older [employer] Work Phone: [facility] 04-10-2023 07:19-0400 SaO2% (BldA) [Mass fraction] 93 % Mercedez Older [employer] Work Phone: [facility] 04-10-2023 07:19-0400 Systolic blood pressure 148 mm[Hg] Mercedez Older [employer] Work Phone: [facility] 01-09-2023 07:39-0500 Diastolic blood pressure 80 mm[Hg] Mercedez Older [employer] Work Phone: [facility] 01-09-2023 07:39-0500 Systolic blood pressure 140 mm[Hg] Mercedez Older [employer] Work Phone: [facility] 01-09-2023 07:21-0500 Body temperature 98.01 [degF] Mercedez Older [employer] Work Phone: [facility] 01-09-2023 07:21-0500 Body weight 98.88 kg Mercedez Older [employer] Work Phone: [facility] 01-09-2023 07:21-0500 Heart rate 90 /min Mercedez Older [employer] Work Phone: [facility] 01-09-2023 07:21-0500 Respiratory rate 16 /min Mercedez Older [employer] Work Phone: [facility] 01-09-2023 07:21-0500 SaO2% (BldA) [Mass fraction] 93 % Mercedez Older [employer] Work Phone: [facility] 12-27-2022 11:08-0500 Diastolic blood pressure 82 mm[Hg] Mercedez Older [employer] Work Phone: [facility] 12-27-2022 11:08-0500 Systolic blood pressure 152 mm[Hg] Mercedez Older [employer] Work Phone: [facility] 12-27-2022 10:24-0500 Body weight 97.98 kg Mercedez Older [employer] Work Phone: [facility] 12-27-2022 10:24-0500 Heart rate 76 /min Mercedez Older [employer] Work Phone: [facility] 12-27-2022 10:24-0500 Respiratory rate 16 /min Mercedez Older [employer] Work Phone: [facility] 12-11-2022 09:03-0500 Body weight 96.62 kg Fm Wstr Work Phone: [facility] 12-11-2022 09:03-0500 Diastolic blood pressure 82 mm[Hg] Fm Wstr Work Phone: [facility] 12-11-2022 09:03-0500 Heart rate 93 /min Fm Wstr Work Phone: [facility] 12-11-2022 09:03-0500 Systolic blood pressure 154 mm[Hg] Fm Wstr Work Phone: [facility] 12-06-2022 13:17-0500 Diastolic blood pressure 87 mm[Hg] Mercedez Older [employer] Work Phone: [facility] 12-06-2022 13:17-0500 Systolic blood pressure 160 mm[Hg] Mercedez Older [employer] Work Phone: [facility] 12-06-2022 12:39-0500 Body temperature 97.11 [degF] Mercedez Older [employer] Work Phone: [facility] 12-06-2022 12:39-0500 Body weight 97.07 kg Mercedez Older [employer] Work Phone: [facility] 12-06-2022 12:39-0500 Heart rate 88 /min Mercedez Older [employer] Work Phone: [facility] 12-06-2022 12:39-0500 Respiratory rate 16 /min Mercedez Older [employer] Work Phone: [facility] 12-06-2022 12:39-0500 SaO2% (BldA) [Mass fraction] 96 % Mercedez Older [employer] Work Phone: [facility] 03-01-2022 11:47-0400 Body temperature 98.2 [degF] Rubi Resendiz [employer] Work Phone: [facility] 03-01-2022 11:47-0400 Body weight 100.25 kg Rubi Resendiz [employer] Work Phone: [facility] 03-01-2022 11:47-0400 Diastolic blood pressure 90 mm[Hg] Rubi Resendiz [employer] Work Phone: [facility] 03-01-2022 11:47-0400 Heart rate 89 /min Rubi Resendiz APRN.HOOP MAKER Work Phone: [facility] 03-01-2022 11:47-0400 Respiratory rate 22 /min Rubi Resendiz [employer] Work Phone: [facility] 03-01-2022 11:47-0400 SaO2% (BldA) [Mass fraction] 96 % Rubi Resendiz APRN.HO[employer] MAKER Work Phone: [facility] 03-01-2022 11:47-0400 Systolic blood pressure 158 mm[Hg] Rubi Resendiz [employer] Work Phone: [facility] Encounters Encounter Date Encounter Type Care Provider Facility Start: 08-20-2023 Refill Mercedez Vincent [employer] Work Phone: [facility] [place] Procedures Date Procedure Procedure Detail Performing Clinician Start: 04-10-2023 Hemoglobin A1c/Hemoglobin.total in Blood Mercedez Vincent [employer] Work Phone: Start: 12-31-2022 End: 12-31-2022 Mammography Bulk Order Provider Start: 12-06-2022 Hemoglobin A1c/Hemoglobin.total in Blood Mercedez Vincent [employer] Work Phone: Start: 03-14-2021 Mammography Kyle ventura MD Work Phone: Start: 09-11-2020 Colonoscopy Kyle ventura MD Work Phone: None (qualifier value) MARGOT CORRAL MD Plan of Treatment Date Care Activity Detail Author Start: 04-10-2024 ANNUAL PCP TEAM PRESCHOOL ADVISER DIVYA DISEASE VISIT ANNUAL PCP TEAM CHRONIC DISEASE VISIT [facility] Start: 01-09-2024 ANNUAL PCP TEAM PRESCHOOL ADVISER DIVYA DISEASE VISIT ANNUAL PCP TEAM CHRONIC DISEASE VISIT [facility] Start: 12-31-2023 Mammography [facility] Start: 12-27-2023 ANNUAL PCP TEAM PRESCHOOL ADVISER DIVYA DISEASE VISIT ANNUAL PCP TEAM CHRONIC DISEASE VISIT [facility] Start: 12-24-2023 Hepatitis B screening URINE AL BUMIN:CREATININE RATIO [facility] Start: 12-24-2023 Hepatitis B surface antibody level LDL CHOLESTEROL [facility] Start: 12-12-2023 Hepatitis C antibody , confirmatory test DILATED RETINAL EXAM [facility] Start: 12-06-2023 3 comp foot exam completed DIABETIC FOOT EXAM [facility] Start: 12-06-2023 ANNUAL PCP TEAM PRESCHOOL ADVISER DIVYA DISEASE VISIT ANNUAL PCP TEAM CHRONIC DISEASE VISIT [facility] Start: 12-06-2023 Zoledronic acid therapy ALPHA- 1 ANTITRYPSIN DEFICIENCY SCREENING [facility] Immunizations Immunization Date Immunization Notes Care Provider Fa cility 03-26-2021 COVID-19 vaccine, ag e 12+ yr (Shopping Buddy-Endoclear - PURPLE [facility]) Kyle Hinojosa MD Work Phone: [facility] Work Phone: 04-05-2021 COVID-19 vaccine, ag e 12+ yr (Shopping Buddy-Endoclear - PURPLE TOP) Kyle Hinojosa MD Work Phone: [facility] 01-26-2021 zoster vaccine recombinant Kyle Hinojosa MD Work Phone: [facility] 01-26-2021 influenza virus vacc ine, unspecified formulation Mercedez Carlton [employer] Work Phone: [facility] 11-10-2020 influenza, seasonal, injectable Kyle Hinojosa MD Work Phone: [facility] 11-10-2020 zoster vaccine recombinant Kyle Hinojosa MD Work Phone: [facility] 11-17-2018 influenza, injectabl e, quadrivalent, contains preservative Kyle Hinojosa MD Work Phone: [facility] Work Phone: 11-28-2017 pneumococcal polysaccharide vaccine, 23 valent Kyle Hinojosa MD Work Phone: [facility] 10-28-2017 influenza, injectabl e, quadrivalent, contains preservative Kyle Hinojosa MD Work Phone: [facility] Work Phone: 10-09-2016 influenza, injectabl e, quadrivalent, contains preservative Kyle Hinojosa MD Work Phone: [facility] 11-29-2015 influenza, seasonal, injectable Kyle Hinojosa MD Work Phone: [facility] Work Phone: Payers Date Payer Category Payer Medicaid [id number] 2018 Medicaid [id number] 2018 Medicare [id number] 2018 Medicare [id number] 2015 Medicare [id number] 2015 Medicare [id number] 1965 Unknown [id number] Social History Date Type Detail Facility Start: 12-01-1979 End: 11-02-2019 Tobacco smoking status NHIS Smokes tobacco daily [facility] Start: 12-01-1979 End: 11-02-2019 History of tobacco use Cigarette Smoker [facility] Start: 02-11-2020 End: 11-05-2020 Cigarettes smoked current (pack per day) - Reported 0.5 [facility] Start: 02-11-2020 Tobacco use and exposure Smokeless tobacco non-user [facility] Start: 12-11-2021 End: 12-26-2022 Alcohol intake Current non-drinker of alcohol (finding) [facility] Start: 07-08-2018 Tobacco Comment down to half a pack daily now [facility] Start: 1965 Sex Assigned At Female [facility] Start: 02-19-2022 End: 03-01-2022 Exposure to SARS-CoV-2 (event) Not sure [facility] Work Phone: Start: 05-15-2022 End: 12-11-2022 History SDOH Alcohol Frequency 1 [facility] Start: 05-15-2022 History SDOH Alcohol Std Drinks 98 [facility] Start: 05-15-2022 End: 12-11-2022 History SDOH Social Connections Membership 2 [facility] Start: 05-15-2022 End: 12-11-2022 History SDOH Housing Unable to Pay 3 [facility] Start: 06-17-2022 Tobacco smoking status Heavy tobacco smoker (finding) [facility] Sex Assigned At Sex [facility] Start: 12-11-2022 History SDOH Social Connections Phone 5 [facility] Start: 11-05-2020 End: 12-11-2022 Social connection and isolation panel [facility] Do you belong to any clubs or organizations such as uatsdin groups, unions, fraternal or athletic groups, or school groups? No [facility] Are you now , , , , never or living with a partner? [facility] How often to you hav e a drink containing alcohol? Never [facility] How many standard dr inks containing alcohol do you have on a typical day? Patient refused [facility] (I/We) worried iftikhar er (my/our) food would run out before (I/we) got money to buy more. DK or Refused [facility] Start: 09-08-2020 Gender identity Identifies as female gender (finding) [facility] Start: 09-08-2020 Sexual orientation Heterosexual (finding) [facility] Medical Equipment Procedure Code Equipment Code Equipment Origin al Text Equipment Identifier Dates Start: 07-08-2018 End: 11-07-2022 Clinical Notes 11-03-2019 to 10-28-2023 Telephone Encounter - Lauren Lau - 08/21/2023 3:35 PM EDTTelephone Encounter - Simon Moody MD - 08/21/2023 1:23 PM EDTTelephone Encounter - Rylie Vigil LPN - 08/21/2023 10:26 AM EDT Note Date & Type Note Facility 10-28-2023 Note HNO ID: [id number] Author: Elly Claros Service: ? Author Type: ? Type: Progress Notes Filed: 10/28/2023 12:39 PM Note Text: Patient transferred to [facility]. Elly Claros LPN [facility] 10-28-2023 Note Patient Outreach (IN TMWS) YANELIS RILEY ([id number]) 1965 F Date Time Provider Department 10/28/23 PRINCESS MADRID During your visit today, we recorded the following information about you: Elly Claros 10/28/2023 12:39 PM Signed Patient transferred to [facility]. Elly Claros LPN Allergies As of Date: 10/28/2023 Noted Allergy Reaction DEMEROL (MEPERIDINE) 11/11/2019 14 - Other: See Comments Comments: Francisco J munoz and rude. Swats at people Date Reviewed: 04/10/2023 Reviewed by: Jazlyn Bach Ma - Fully Assessed Reason for Visit: Patient Update [1234] Cmt: patient transferred to [facility] Prescriptions as of 10/28/2023 - TRULICITY 3 mg/0.5 mL pen injector INJECT THE CONTENTS OF 1 PEN SUBCUTANEOUSLY ONCE A WEEK. - verapamil SR (CALAN SR) 180 mg CR tablet Take 1 tablet by mouth once daily. - atorvastatin (LIPITOR) 40 mg tablet Take 1 tablet by mouth once daily. at bedtime, for cholesterol. - sertraline (ZOLOFT) 100 mg tablet Take 1 tablet by mouth once daily. - montelukast (SINGULAIR) 10 mg tablet Take 1 tablet by mouth daily at bedtime. - glimepiride (AMARYL) 4 mg tablet TAKE 1 TABLET BY MOUTH TWICE DAILY WITH MEALS - hydroCHLOROthiazide 25 mg tablet Take 1 tablet by mouth once daily. - albuterol (PROVENTIL) 2.5 mg /3 mL (0.083 %) nebulizer solution Use 3 mL via nebulizer every 6 hours as needed. 1 vial contains 3 ml. - albuterol HFA (VENTOLIN HFA) 90 mcg/actuation inhaler Inhale 2 Puffs as instructed every 4 hours as needed for wheezing/shortness of breath. - cyclobenzaprine (FLEXERIL) 10 mg tablet Take 1 tablet by mouth three times daily as needed for muscle spasm. - fluticasone-vilanterol (BREO ELLIPTA) 200-25 mcg/dose inhaler INHALE 1 PUFF BY MOUTH ONCE DAILY DIRECTED. DO NOT CLICK OPEN UNTIL READY FOR DOSE. - losartan (COZAAR) 100 mg tablet Take 1 tablet by mouth once daily. - blood sugar diagnostic (ONETOUCH ULTRA TEST) test strip Test blood sugar(s) 2 times daily. Dx: Type 2 DM - Uncontrolled E11.42 Insulin: No - Lancets lancets Test blood sugar(s) 2 times daily. Dx: Type 2 DM - Uncontrolled E11.42 Insulin: No - fluticasone (FLONASE) 50 mcg/actuation nasal spray Use 2 Sprays in each nostril once daily. Rinse mouth after use. - insulin needles, DISPOSABLE, (PEN NEEDLE) 31 gauge x 5/16 Use one needle per dose. 1 per day. - Nebulizer 1 Device four times daily as needed. NEBULIZER FOR HOME USE. DX: COPD Exacerbation Meds Comments as of 11/08/2019: Aleve PRN for pain 11/08/19 The medications are managed by this patient by: PATIENT Delilah Brown, Sherie Problem List As Of Date 10/28/2023 Noted Resolved KESHAWN on CPAP [G47.33] 12/22/2015 Hyperlipidemia [E78.5] 12/22/2015 Essential hypertension [I10] 12/22/2015 Poorly controlled type 2 diabetes mellitus with*12/22/2015 Chronic back pain [M54.9, G89.29] 12/22/2015 Current severe episode of major depressive diso*01/22/2016 Obesity due to excess calories [E66.09] 10/17/2016 03/28/2021 Tobacco abuse [Z72.0] 10/17/2016 12/11/2021 Morbid obesity with BMI of 40.0-44.9, adult (HC*04/06/2018 Obesity, Class II, BMI 35-39.9 [E66.9] 11/03/2019 03/28/2021 Perineal abscess [L02.215] 11/03/2019 Nicotine use disorder, F17.2 [F17.200] 11/05/2019 Leukocytosis [D72.829] 09/08/2020 Chronic diarrhea [K52.9] 09/08/2020 Encounter Status:Closed by ELLY CLAROS on 10/28/23 [facility] 08-21-2023 Miscellaneous Notes First attempt- Called patient but she said she was unable to speak at that time. Told her to call and get the follow up scheduled whenever available. Needs follow up--was supposed to have 2 week follow up with Mercedez after March appointment but no appointment made. The following approved medication requests have been transmitted electronically. Requested Prescriptions Signed Prescriptions Disp Refills TRULICITY 3 mg/0.5 mL pen injector 4 mL 0 Sig: INJECT THE CONTENTS OF 1 PEN SUBCUTANEOUSLY ONCE A WEEK. Authorizing Provider: SIMON MOODY MD Patient has been identified by name and date of : Yes, Provider Dr. Madrid Date 08/21/23 Time 10:26 am Pharmacy phones for refill(s): Requested Prescriptions Pending Prescriptions Disp Refills TRULICITY 3 mg/0.5 mL pen injector [Pharmacy Med Name: Trulicity 3 MG/0.5ML Subcutaneous Solution Pen-injector] 4 mL 0 Sig: INJECT THE CONTENTS OF 1 PEN SUBCUTANEOUSLY ONCE A WEEK. Date of last office visit in primary care: 04/10/23 Last 2 Encounter Wt Readings: Date: Wt: 04/10/2023 96.2 kg (212 lb) 01/09/2023 98.9 kg (218 lb) Previous labs/tests for medication: Diabetes: Hemoglobin A1C (%) Date Value 02/13/2021 8.9 11/16/2020 7.8 Hemoglobin A1C (POCT) (%) Date Value 04/10/2023 10.1 12/06/2022 12.2 Thank you. Rylie Vigil LPN documented in this encounter [facility] 05-22-2023 Miscellaneous Notes Care Transition Back to PCP Our mutual patient, Yanelis Riley, who was referred to primary care pharmacy services for Diabetes management, has not responded to our outreach attempts to schedule a visit.. We will not be scheduling further follow up with pharmacy at this time. They have been encouraged to follow up with you for ongoing management. As always, you may refer Yanelis Riley back to pharmacy for management in the future. Next PCP team appointment: none Thank you for utilizing primary care pharmacy services. Debbi Acuña PharmD, BCACP Primary Care Clinical Pharmacist documented in this encounter [facility] 05-14-2023 Miscellaneous Notes Telephoned the patient regarding missed appt. Left a message. 2nd attempt Telephoned the patient regarding missed appt. Left a message. 1st attempt Primary Care Pharmacy Rescheduling Outreach Call center, please contact patient and reschedule telephone visit for Diabetes management within ~2 week(s). (Visit length: 30 minutes) Thank you, Debbi Acuña RPh 05/12/2023 3:03 PM documented in this encounter [facility] 04-10-2023 Note HNO ID: [id number] Author: Mercedez Vincent APRN.HOOP MAKER Service: ? Author Type: Nurse Practitioner Type: Progress Notes Filed: 04/10/2023 8:05 AM Note Text: CC: Patient presents with: Recheck: 3 month follow up HPI Yanelis Riley is a 57 year old female who presents today for 3 month follow up. Is actively losing weight with increasing daily activity with walking and eating a healthier diet. HTN and HLD: Ms. Riley indicates that she is feeling well and denies any symptoms referable to elevated blood pressure. Specifically denies headache, chest pain, palpitations, dyspnea, and peripheral edema. Patient denies any side effects of her medication(s) and is compliant with their regimen except have been out of her medications for a week and only had her losartan today. Has not had her HCTZ or verapamil for a month. She does not check BP's generally. Yanelis works out regularly 7 times per week with walking. She watches her diet for sodium, low fat and low cholesterol most of the time. Last 3 Encounter BP Readings: Date: BP: 04/10/2023 148/86 01/09/2023 140/80 12/27/2022 152/82[BP Derrell[ DIABETES MELLITUS: Ms. Riley denies excessive thirst or increased frequency of urination, chest pain or dyspnea , numbness, tingling or pain in extremities, new or unusual visual symptoms, low sugar/hypoglycemic reactions, weight loss/gain, lightheadedness/dizziness, and bowel changes/loose stools. Follows a diabetic diet most of the time. She is compliant with medication(s) and is tolerating med(s) without any side effects. She reports checking her glucose on a once a day schedule with sugars in the fasting 180s-160s range. Patient's last HgA1C was Hemoglobin A1C (%) Date Value 02/13/2021 8.9 11/16/2020 7.8 Hemoglobin A1C (POCT) (%) Date Value 04/10/2023 10.1 12/06/2022 12.2 ) Emphysema: Has been trying to quit smoking and has decreased to half a pack a day. Has had sinus congestion that is not improving for the last month. Will drain down her throat and then she will cough up yellow phlegm. Nasal drainage is green. Has a lot of sinus pressure as well. Denies fever chills, shortness of breath, chest pressure, nausea, vomiting, diarrhea, or wheezing. No increase in use of albuterol and only uses it prior to walking for exercise. REVIEW OF SYSTEMS General: no fevers, no chills, no night sweats, no recurrent infections, no change in appetite, no change in energy, and no significant changes in weight Respiratory: See HPI Cardiovascular: no chest pain, no chest pressure, no palpitations, and no swelling GI: No nausea, vomiting, or diarrhea Endocrine: no fatigue, no cold intolerance, no heat intolerance, no polyuria, no polyphagia, and no polydipsia Neurologic: No headache, weakness, numbness, tingling, dizziness, memory loss, syncope. 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) 12/22/2015 Pulmonary emphysema (HCC) 12/22/2015 Single current episode of major depressive disorder 01/22/2016 PAST SURGICAL HISTORY Procedure Laterality Date BX OF BREAST; INCISIONAL Left 04/05/2021 COLONOSCOPY FLX DX W/COLLJ SPEC WHEN PFRMD 09/11/2020 Colonoscopy ESOPHAGOGASTRODUODENOSCOPY TRANSORAL DIAGNOSTIC 09/11/2020 EGD LAPAROSCOPY DIAGNOSTIC irregular menses LIG/TRNSXJ FLP TUBE ABDL/VAG APPR UNI/BI 1987 Tubal ligation PAST SURGICAL HISTORY OF 01/2012 back surgery PAST SURGICAL HISTORY OF 11/03/2019 incision and drainage of perianal abscess ALLERGIES Demerol [Meperidine] MEDICATIONS albuterol HFA (VENTOLIN HFA) 90 mcg/actuation inhaler Inhale 2 Puffs as instructed every 4 hours as needed for wheezing/shortness of breath. cyclobenzaprine (FLEXERIL) 10 mg tablet Take 1 tablet by mouth three times daily as needed for muscle spasm. fluticasone-vilanterol (BREO ELLIPTA) 200-25 mcg/dose inhaler INHALE 1 PUFF BY MOUTH ONCE DAILY DIRECTED. DO NOT CLICK OPEN UNTIL READY FOR DOSE. losartan (COZAAR) 100 mg tablet Take 1 tablet by mouth once daily. fluticasone (FLONASE) 50 mcg/actuation nasal spray Use 2 Sprays in each nostril once daily. Rinse mouth after use. verapamil SR (CALAN SR) 180 mg CR tablet Take 1 tablet by mouth once daily. atorvastatin (LIPITOR) 40 mg tablet Take 1 tablet by mouth once daily. at bedtime, for cholesterol. sertraline (ZOLOFT) 100 mg tablet Take 1 tablet by mouth once daily. montelukast (SINGULAIR) 10 mg tablet Take 1 tablet by mouth daily at bedtime. glimepiride (AMARYL) 4 mg tablet TAKE 1 TABLET BY MOUTH TWICE DAILY WITH MEALS hydroCHLOROthiazide 25 mg tablet Take 1 tablet by mouth once daily. albuterol (more content not included)... [facility] 04-10-2023 History of Present illness Narrative CC: Patient presents with: Recheck: 3 month follow up HPI Yanelis Riley is a 57 year old female who presents today for 3 month follow up. Is actively losing weight with increasing daily activity with walking and eating a healthier diet. HTN and HLD: Ms. Riley indicates that she is feeling well and denies any symptoms referable to elevated blood pressure. Specifically denies headache, chest pain, palpitations, dyspnea, and peripheral edema. Patient denies any side effects of her medication(s) and is compliant with their regimen except have been out of her medications for a week and only had her losartan today. Has not had her HCTZ or verapamil for a month. She does not check BP's generally. Yanelis works out regularly 7 times per week with walking. She watches her diet for sodium, low fat and low cholesterol most of the time. Last 3 Encounter BP Readings: Date: BP: 04/10/2023 148/86 01/09/2023 140/80 12/27/2022 152/82[BP Derrell[ DIABETES MELLITUS: Ms. Riley denies excessive thirst or increased frequency of urination, chest pain or dyspnea , numbness, tingling or pain in extremities, new or unusual visual symptoms, low sugar/hypoglycemic reactions, weight loss/gain, lightheadedness/dizziness, and bowel changes/loose stools. Follows a diabetic diet most of the time. She is compliant with medication(s) and is tolerating med(s) without any side effects. She reports checking her glucose on a once a day schedule with sugars in the fasting 180s-160s range. Patient's last HgA1C was Hemoglobin A1C (%) Date Value 02/13/2021 8.9 11/16/2020 7.8 Hemoglobin A1C (POCT) (%) Date Value 04/10/2023 10.1 12/06/2022 12.2 ) Emphysema: Has been trying to quit smoking and has decreased to half a pack a day. Has had sinus congestion that is not improving for the last month. Will drain down her throat and then she will cough up yellow phlegm. Nasal drainage is green. Has a lot of sinus pressure as well. Denies fever chills, shortness of breath, chest pressure, nausea, vomiting, diarrhea, or wheezing. No increase in use of albuterol and only uses it prior to walking for exercise. REVIEW OF SYSTEMS General: no fevers, no chills, no night sweats, no recurrent infections, no change in appetite, no change in energy, and no significant changes in weight Respiratory: See HPI Cardiovascular: no chest pain, no chest pressure, no palpitations, and no swelling GI: No nausea, vomiting, or diarrhea Endocrine: no fatigue, no cold intolerance, no heat intolerance, no polyuria, no polyphagia, and no polydipsia Neurologic: No headache, weakness, numbness, tingling, dizziness, memory loss, syncope. PAST MEDICAL HISTORY Diagnosis Date Chronic back pain 12/22/2015 Diabetes mellitus type 2, controlled, without complications (HCC) 12/22/2015 diagnosed 2012 Essential hypertension 12/22/2015 Hyperlipidemia 12/22/2015 KESHAWN on CPAP 12/22/2015 DME [facility] Pneumonia 12/25/2012 Poorly controlled type 2 diabetes mellitus with peripheral neuropathy (HCC) 12/22/2015 Pulmonary emphysema (HCC) 12/22/2015 Single current episode of major depressive disorder 01/22/2016 PAST SURGICAL HISTORY Procedure Laterality Date BX OF BREAST; INCISIONAL Left 04/05/2021 COLONOSCOPY FLX DX W/COLLJ SPEC WHEN PFRMD 09/11/2020 Colonoscopy ESOPHAGOGASTRODUODENOSCOPY TRANSORAL DIAGNOSTIC 09/11/2020 EGD LAPAROSCOPY DIAGNOSTIC irregular menses LIG/TRNSXJ FLP TUBE ABDL/VAG APPR UNI/BI 1987 Tubal ligation PAST SURGICAL HISTORY OF 01/2012 back surgery PAST SURGICAL HISTORY OF 11/03/2019 incision and drainage of perianal abscess ALLERGIES Demerol [Meperidine] MEDICATIONS albuterol HFA (VENTOLIN HFA) 90 mcg/actuation inhaler Inhale 2 Puffs as instructed every 4 hours as needed for wheezing/shortness of breath. cyclobenzaprine (FLEXERIL) 10 mg tablet Take 1 tablet by mouth three times daily as needed for muscle spasm. fluticasone-vilanterol (BREO ELLIPTA) 200-25 mcg/dose inhaler INHALE 1 PUFF BY MOUTH ONCE DAILY DIRECTED. DO NOT CLICK OPEN UNTIL READY FOR DOSE. losartan (COZAAR) 100 mg tablet Take 1 tablet by mouth once daily. fluticasone (FLONASE) 50 mcg/actuation nasal spray Use 2 Sprays in each nostril once daily. Rinse mouth after use. verapamil SR (CALAN SR) 180 mg CR tablet Take 1 tablet by mouth once daily. atorvastatin (LIPITOR) 40 mg tablet Take 1 tablet by mouth once daily. at bedtime, for cholesterol. sertraline (ZOLOFT) 100 mg tablet Take 1 tablet by mouth once daily. montelukast (SINGULAIR) 10 mg tablet Take 1 tablet by mouth daily at bedtime. glimepiride (AMARYL) 4 mg tablet TAKE 1 TABLET BY MOUTH TWICE DAILY WITH MEALS hydroCHLOROthiazide 25 mg tablet Take 1 tablet by mouth once daily. albuterol (PROVENTIL) 2.5 mg /3 mL (0.083 %) nebulizer solution Use 3 mL via nebulizer every 6 hours as needed. 1 vial contains 3 ml. amoxicillin-clavulanic acid (AUGMENTIN) 875-125 mg per tablet Take 1 tablet by mouth twice daily for 10 days. dulaglutide (TRULICITY) 3 mg/0.5 mL pen injector Inject 3 mg subcutaneously one time a week. blood sugar diagnostic (AscadeTOUCH ULTRA TEST) test strip Test blood sugar(s) 2 times daily. Dx: Type 2 DM - Uncontrolled E11.42 Insulin: No Lancets lancets Test blood sugar(s) 2 times daily. Dx: Type 2 DM - Uncontrolled E11.42 Insulin: No insulin needles, DISPOSABLE, (PEN NEEDLE) 31 gauge x 5/16 Use one needle per dose. 1 per day. Nebulizer 1 Device four times daily as needed. NEBULIZER FOR HOME USE. DX: COPD Exacerbation FAMILY HISTORY Problem Relation Age of Onset Hypertension Mother Coronary Artery Disease Mother Cancer Mother kidney cancer Coronary Artery Disease Maternal Grandmother None Father NOT KNOWN None Sister Cancer Maternal Grandfather stomach Heart Daughter SVT Social History Tobacco Use Smoking status: Every Day Packs/day: 0.50 Years: 33.00 Pack years: 16.50 Types: Cigarettes Start date: 12/01/1979 Last attempt to quit: 11/02/2019 Years since quittin.4 Smokeless tobacco: Never Tobacco comments: down to half a pack daily now Vaping Use Vaping Use: Former Substance Use Topics Alcohol use: No Drug use: No PHYSICAL EXAM BP 148/86 Pulse 84 Resp 16 Wt 96.2 kg (212 lb) LMP 01/09/2016 (Approximate) SpO2 93% BMI 40.06 kg/m General Appearance: well appearing, in no acute distress, alert Skin: Skin color, texture, turgor normal for age; Eyes: conjunctiva pink and moist, no icterus, sclera white, non-injected Ears: external ears normal to inspection and palpation, canals clear, Left tympanic membrane normal. , Right tympanic membrane normal Nose/sinus: Nares normal. Septum midline. Mucosa normal. No drainage., Sinus tenderness to maxillary and frontal sinuses Neck: Thyroid normal size and symmetric without palpable nodules, Neck supple, No adenopathy Oropharynx: tongue midline and normal, soft palate, uvula, and tonsils normal, palpation of salivary glands negative Lymph nodes: No cervical lymphadenopathy and No supraclavicular lymphadenopathy Lungs: Lungs clear to auscultation. No wheezing, rhonchi, rales. Heart: RRR without murmur, gallop, or rubs. No ectopy Health maintenance reviewed with patient: BP CONTROLLED (<130/80) due on 02/13/2022 HBA1C due on 03/06/2023 DTAP,TDAP,TD(1 - Tdap) due on 05/15/2023 HEPATITIS B(1 of 3 - 3-dose series) due on 05/15/2023 PAP TESTING due on 05/15/2023 HPV TESTING due on 05/15/2023 COVID-19 VACCINE(3 - Booster for Pfizer series) due on 05/15/2023 PNEUMOCOCCAL(2 - PCV) due on 05/15/2023 ALPHA-1 ANTITRYPSIN DEFICIENCY SCREENING due on 12/06/2023 INFLUENZA(Season Ended) due on 08/01/2023 COLORECTAL CANCER SCREENING due on 09/11/2023 DIABETIC FOOT EXAM due on 12/06/2023 DILATED RETINAL EXAM due on 12/12/2023 URINE ALBUMIN:CREATININE RATIO due on 12/24/2023 LDL CHOLESTEROL due on 12/24/2023 MAMMOGRAM due on 12/31/2023 ANNUAL PCP TEAM CHRONIC DISEASE VISIT due on 01/09/2024 SPIROMETRY Completed HEPATITIS C SCREENING Completed SHINGRIX VACCINE Completed HIV SCREENING Discontinued DATA REVIEWED: No new labs ASSESSMENT/PLAN: 1. Poorly controlled type 2 diabetes mellitus with peripheral neuropathy (HCC) - ICD9: 250.60, 357.2, ICD10: E11.42, E11.65 (primary diagnosis) - Improving control - has not had glimepiride in over a week so restarting this and increasing trulicity - Blood glucose monitoring on a once daily schedule - Counseled on healthy diet and regular exercise - continue with current healthy choices resulting in weight loss. - Discussed need for and benefit of weight loss. BMI 40.06 kg/(m^2) - GLIMEPIRIDE 4 MG TABLET - HEMOGLOBIN A1C (POC) - BASIC METABOLIC PNL - CBC + DIFF - DULAGLUTIDE 3 MG/0.5 ML SUBCUTANEOUS PEN INJECTOR 2. Essential hypertension - ICD9: 401.9, ICD10: I10 - suboptimal control but has been out of her medications. Restarting medications and will re-evaluate in 2 weeks - Continue current medication(s) - Encouraged dietary sodium restriction/DASH diet - Recommended regular aerobic exercise. - Recommend home blood pressure monitoring, to bring results in on next visit - Goal of BP <130/80 - VERAPAMIL ER (SR) 180 MG TABLET,EXTENDED RELEASE - HYDROCHLOROTHIAZIDE 25 MG TABLET - BASIC METABOLIC PNL - CBC + DIFF 3. Hyperlipidemia, unspecified hyperlipidemia type - ICD9: 272.4, ICD10: E78.5 - good control - Continue current medication. - Encouraged following a low fat, low cholesterol diet. - Discussed the benefits of regular aerobic exercise and weight loss. - ATORVASTATIN 40 MG TABLET 4. Pulmonary emphysema, unspecified emphysema type (HCC) - ICD9: 492.8, ICD10: J43.9 - stable no increase in need for albuterol and reports of shortness of breath, wheezing, or chest tightness. Current cough result of post nasal drip from sinuses. - discussed need for smoking cessation, patient declined assistance at this time - MONTELUKAST 10 MG TABLET - ALBUTEROL SULFATE 2.5 MG/3 ML (0.083 %) SOLUTION FOR NEBULIZATION 5. Acute non-recurrent sinusitis, unspecified location - ICD9: 461.9, ICD10: J01.90 - Will begin treatment with as per antibiotic as written, see orders - Supportive care with plenty of fluids, rest, and analgesia prn. - Follow up in 3-5 days if symptoms persist or worsen. Prescription instructions reviewed with patient as applicable. Potential red flag symptoms discussed with the patient. Reviewed appropriate action plan to take if red flag symptoms occur. Patient agreeable to treatment plan. Mercedez Vincent APRN.CNP documented in this encounter [facility] 04-08-2023 Miscellaneous Notes Patient has been identified by name and date of : Yes Patient phones for refill(s): Requested Prescriptions Pending Prescriptions Disp Refills albuterol HFA (PROVENTIL HFA, VENTOLIN HFA) 90 mcg/actuation inhaler [Pharmacy Med Name: Albuterol Sulfate HFA 108 (90 Base) MCG/ACT Inhalation Aerosol Solution] 9 g 0 Sig: INHALE 2 PUFFS BY MOUTH DIRECTED EVERY 4 HOURS NEEDED FOR WHEEZING OR SHORTNESS OF BREATH Date of last office visit in primary care: 01/09/2023 3 month follow-up: 04/10/2023 Last 2 Encounter Wt Readings: Date: Wt: 01/09/2023 98.9 kg (218 lb) 12/27/2022 98 kg (216 lb) Previous labs/tests for medication: Not applicable Please advise. Thank you. Jackie Wolfe LPN documented in this encounter [facility] 04-08-2023 Miscellaneous Notes Patient phones requesting refills as follows: Requested Prescriptions Pending Prescriptions Disp Refills dulaglutide (TRULICITY) 1.5 mg/0.5 mL pen injector 2 mL 1 Sig: Inject 1.5 mg subcutaneously one time a week. albuterol HFA (VENTOLIN HFA) 90 mcg/actuation inhaler 18 g 2 Sig: Inhale 2 Puffs as instructed every 4 hours as needed for wheezing/shortness of breath. RIO: 01/09/23 NOV: 04/10/23 Last Refill: Trulicity 12/23/22 2ml 1 refill Albuterol inh; 05/15/55 18 g 2 refills Magali Kauffman LPN documented in this encounter [facility] 01-17-2023 Miscellaneous Notes Last office visit: 01/09/23 Next appointment scheduled: 04/10/23 Patient phones requesting refills as follows: Requested Prescriptions Pending Prescriptions Disp Refills cyclobenzaprine (FLEXERIL) 10 mg tablet 30 tablet 1 Sig: Take 1 tablet by mouth three times daily as needed for muscle spasm. fluticasone-vilanterol (BREO ELLIPTA) 200-25 mcg/dose inhaler 60 Each 3 Sig: INHALE 1 PUFF BY MOUTH ONCE DAILY DIRECTED. DO NOT CLICK OPEN UNTIL READY FOR DOSE. Please review and advise. Nina Sepulveda LPN documented in this encounter [facility] 01-09-2023 Note HNO ID: [id number] Author: Mercedez Vincent APRN.HOOP MAKER Service: ? Author Type: Nurse Practitioner Type: Progress Notes Filed: 01/09/2023 8:40 AM Note Text: CC Patient presents with: Recheck: BP follow up HPI Yanelis Riley is a 57 year old female who presents to the office for blood pressure. Her visit today is for re-evaluation. Patient was last seen for this approximately 1 month ago. Medication changes: Yes Verapamil was increased Taking all medications as prescribed: Yes but just started increased dose last week Side effects: No Home BP's: Yes 140s-150s/80 Denies: chest pain, palpitations, dyspnea, and peripheral edema. Last 4 Encounter BP Readings: Date: BP: 01/09/2023 140/80 12/27/2022 152/82[BP Derrell[ 12/11/2022 154/82 12/06/2022 160/87 Last 3 Encounter Wt Readings: Date: Wt: 01/09/2023 98.9 kg (218 lb) 12/27/2022 98 kg (216 lb) 12/11/2022 96.6 kg (213 lb) Exercise: denies regular aerobic exercise. Diet: Watch for salt, fat, cholesterol: Yes . Caffeine: 2-3 cups a day Water intake: 50 ml on average Alcohol intake: none . Smoking: Yes 1/2-ppd Frequent NSAID use: Yes 2-3 nightly Decongestants: No Thyroid disorders? No Sleep disorders/snoring? Yes and does not use her auto pap Has had sinus congestion for the past week. States it is clear to yellow and unsure if it is allergies or a sinus infection. Is accompanied with a headache and has body aches as well. Denies fever, chills, shortness of breath, wheezing, cough, nausea, or chest pain. REVIEW OF SYSTEMS General: no fevers, no chills, no night sweats, no recurrent infections, no change in appetite, no change in energy, and no significant changes in weight Respiratory: no cough, no wheezing, no shortness of breath, no hemoptysis Cardiovascular: no chest pain, no chest pressure, no palpitations, and no swelling GI: No nausea, vomiting, or diarrhea Neurologic: No weakness, numbness, tingling, dizziness, syncope. PAST MEDICAL HISTORY Diagnosis Date Chronic back pain 12/22/2015 Diabetes mellitus type 2, controlled, without complications (HCC) 12/22/2015 diagnosed 2012 Essential hypertension 12/22/2015 Hyperlipidemia 12/22/2015 KESHAWN on CPAP 12/22/2015 DME [facility] Pneumonia 12/25/2012 Poorly controlled type 2 diabetes mellitus with peripheral neuropathy (HCC) 12/22/2015 Pulmonary emphysema (HCC) 12/22/2015 Single current episode of major depressive disorder 01/22/2016 PAST SURGICAL HISTORY Procedure Laterality Date BX OF BREAST; INCISIONAL Left 04/05/2021 COLONOSCOPY FLX DX W/COLLJ SPEC WHEN PFRMD 09/11/2020 Colonoscopy ESOPHAGOGASTRODUODENOSCOPY TRANSORAL DIAGNOSTIC 09/11/2020 EGD LAPAROSCOPY DIAGNOSTIC irregular menses LIG/TRNSXJ FLP TUBE ABDL/VAG APPR UNI/BI 1987 Tubal ligation PAST SURGICAL HISTORY OF 01/2012 back surgery PAST SURGICAL HISTORY OF 11/03/2019 incision and drainage of perianal abscess ALLERGIES Demerol [Meperidine] MEDICATIONS verapamil SR (CALAN SR, ISOPTIN SR) 180 mg CR tablet Take 1 tablet by mouth once daily. urea (CARMOL) 40 % Apply to affected area once daily. dulaglutide (TRULICITY) 1.5 mg/0.5 mL pen injector Inject 1.5 mg subcutaneously one time a week. atorvastatin (LIPITOR) 40 mg tablet Take 1 tablet by mouth once daily. at bedtime, for cholesterol. sertraline (ZOLOFT) 100 mg tablet Take 1 tablet by mouth once daily. montelukast (SINGULAIR) 10 mg tablet Take 1 tablet by mouth daily at bedtime. glimepiride (AMARYL) 4 mg tablet TAKE 1 TABLET BY MOUTH TWICE DAILY WITH MEALS hydroCHLOROthiazide (HYDRODIURIL, ESIDRIX) 25 mg tablet Take 1 tablet by mouth once daily. losartan (COZAAR) 100 mg tablet Take 1 tablet by mouth once daily. fluticasone (FLONASE) 50 mcg/actuation nasal spray Use 2 Sprays in each nostril once daily. Rinse mouth after use. urea (CARMOL) 40 % Apply to affected area as needed. insulin needles, DISPOSABLE, (PEN NEEDLE) 31 gauge x 5/16 Use one needle per dose. 1 per day. Nebulizer 1 Device four times daily as needed. NEBULIZER FOR HOME USE. DX: COPD Exacerbation amoxicillin-clavulanic acid (AUGMENTIN) 875-125 mg per tablet Take 1 tablet by mouth twice daily for 10 days. blood sugar diagnostic (ONETOUCH ULTRA TEST) test strip Test blood sugar(s) 2 times daily. Dx: Type 2 DM - Uncontrolled E11.42 Insulin: No Lancets lancets Test blood sugar(s) 2 times daily. Dx: Type 2 DM - Uncontrolled E11.42 Insulin: No fluticasone-vilanterol (BREO ELLIPTA) 200-25 mcg/dose inhaler INHALE 1 PUFF BY MOUTH ONCE DAILY DIRECTED. DO NOT CLICK OPEN UNTIL READY FOR DOSE. albuterol HFA (VENTOLIN HFA) 90 mcg/actuation inhaler Inhale 2 Puffs as instructed every 4 hours as needed for wheezing/shortness of breath. albuterol (PROVENTIL) 2.5 mg /3 mL (0.083 %) nebulizer solution Use 3 mL via nebulizer every 6 hours as needed. 1 vial contains 3 ml. cyclobenzaprine (FLEXERIL) 10 mg tablet Take 1 tablet by mouth th (more content not included)... [facility] 01-09-2023 Instructions Mercedez Vincent APRN.CNP - 01/09/2023 7:43 AM EST Continue to use you auto pap for sleep apnea Consider quitting smoking Attempt to stop ibuprofen daily and try tylenol instead documented in this encounter [facility] 01-09-2023 History of Present illness Narrative CC Patient presents with: Recheck: BP follow up HPI Yanelis Riley is a 57 year old female who presents to the office for blood pressure. Her visit today is for re-evaluation. Patient was last seen for this approximately 1 month ago. Medication changes: Yes Verapamil was increased Taking all medications as prescribed: Yes but just started increased dose last week Side effects: No Home BP's: Yes 140s-150s/80 Denies: chest pain, palpitations, dyspnea, and peripheral edema. Last 4 Encounter BP Readings: Date: BP: 01/09/2023 140/80 12/27/2022 152/82[BP Derrell[ 12/11/2022 154/82 12/06/2022 160/87 Last 3 Encounter Wt Readings: Date: Wt: 01/09/2023 98.9 kg (218 lb) 12/27/2022 98 kg (216 lb) 12/11/2022 96.6 kg (213 lb) Exercise: denies regular aerobic exercise. Diet: Watch for salt, fat, cholesterol: Yes . Caffeine: 2-3 cups a day Water intake: 50 ml on average Alcohol intake: none . Smoking: Yes 1/2-ppd Frequent NSAID use: Yes 2-3 nightly Decongestants: No Thyroid disorders? No Sleep disorders/snoring? Yes and does not use her auto pap Has had sinus congestion for the past week. States it is clear to yellow and unsure if it is allergies or a sinus infection. Is accompanied with a headache and has body aches as well. Denies fever, chills, shortness of breath, wheezing, cough, nausea, or chest pain. REVIEW OF SYSTEMS General: no fevers, no chills, no night sweats, no recurrent infections, no change in appetite, no change in energy, and no significant changes in weight Respiratory: no cough, no wheezing, no shortness of breath, no hemoptysis Cardiovascular: no chest pain, no chest pressure, no palpitations, and no swelling GI: No nausea, vomiting, or diarrhea Neurologic: No weakness, numbness, tingling, dizziness, syncope. 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) 12/22/2015 Pulmonary emphysema (HCC) 12/22/2015 Single current episode of major depressive disorder 01/22/2016 PAST SURGICAL HISTORY Procedure Laterality Date BX OF BREAST; INCISIONAL Left 04/05/2021 COLONOSCOPY FLX DX W/COLLJ SPEC WHEN PFRMD 09/11/2020 Colonoscopy ESOPHAGOGASTRODUODENOSCOPY TRANSORAL DIAGNOSTIC 09/11/2020 EGD LAPAROSCOPY DIAGNOSTIC irregular menses LIG/TRNSXJ FLP TUBE ABDL/VAG APPR UNI/BI 1987 Tubal ligation PAST SURGICAL HISTORY OF 01/2012 back surgery PAST SURGICAL HISTORY OF 11/03/2019 incision and drainage of perianal abscess ALLERGIES Demerol [Meperidine] MEDICATIONS verapamil SR (CALAN SR, ISOPTIN SR) 180 mg CR tablet Take 1 tablet by mouth once daily. urea (CARMOL) 40 % Apply to affected area once daily. dulaglutide (TRULICITY) 1.5 mg/0.5 mL pen injector Inject 1.5 mg subcutaneously one time a week. atorvastatin (LIPITOR) 40 mg tablet Take 1 tablet by mouth once daily. at bedtime, for cholesterol. sertraline (ZOLOFT) 100 mg tablet Take 1 tablet by mouth once daily. montelukast (SINGULAIR) 10 mg tablet Take 1 tablet by mouth daily at bedtime. glimepiride (AMARYL) 4 mg tablet TAKE 1 TABLET BY MOUTH TWICE DAILY WITH MEALS hydroCHLOROthiazide (HYDRODIURIL, ESIDRIX) 25 mg tablet Take 1 tablet by mouth once daily. losartan (COZAAR) 100 mg tablet Take 1 tablet by mouth once daily. fluticasone (FLONASE) 50 mcg/actuation nasal spray Use 2 Sprays in each nostril once daily. Rinse mouth after use. urea (CARMOL) 40 % Apply to affected area as needed. insulin needles, DISPOSABLE, (PEN NEEDLE) 31 gauge x 5/16 Use one needle per dose. 1 per day. Nebulizer 1 Device four times daily as needed. NEBULIZER FOR HOME USE. DX: COPD Exacerbation amoxicillin-clavulanic acid (AUGMENTIN) 875-125 mg per tablet Take 1 tablet by mouth twice daily for 10 days. blood sugar diagnostic (ONETOUCH ULTRA TEST) test strip Test blood sugar(s) 2 times daily. Dx: Type 2 DM - Uncontrolled E11.42 Insulin: No Lancets lancets Test blood sugar(s) 2 times daily. Dx: Type 2 DM - Uncontrolled E11.42 Insulin: No fluticasone-vilanterol (BREO ELLIPTA) 200-25 mcg/dose inhaler INHALE 1 PUFF BY MOUTH ONCE DAILY DIRECTED. DO NOT CLICK OPEN UNTIL READY FOR DOSE. albuterol HFA (VENTOLIN HFA) 90 mcg/actuation inhaler Inhale 2 Puffs as instructed every 4 hours as needed for wheezing/shortness of breath. albuterol (PROVENTIL) 2.5 mg /3 mL (0.083 %) nebulizer solution Use 3 mL via nebulizer every 6 hours as needed. 1 vial contains 3 ml. cyclobenzaprine (FLEXERIL) 10 mg tablet Take 1 tablet by mouth three times daily as needed for muscle spasm. FAMILY HISTORY Problem Relation Age of Onset Hypertension Mother Coronary Artery Disease Mother Cancer Mother kidney cancer Coronary Artery Disease Maternal Grandmother None Father NOT KNOWN None Sister Cancer Maternal Grandfather stomach Heart Daughter SVT Social History Tobacco Use Smoking status: Every Day Packs/day: 0.50 Years: 33.00 Pack years: 16.50 Types: Cigarettes Start date: 12/01/1979 Last attempt to quit: 11/02/2019 Years since quittin.1 Smokeless tobacco: Never Tobacco comments: down to half a pack daily now Vaping Use Vaping Use: Former Substance Use Topics Alcohol use: No Drug use: No PHYSICAL EXAM BP 140/80 Pulse 90 Temp 36.7 C (98 F) (Temporal) Resp 16 Wt 98.9 kg (218 lb) LMP 01/09/2016 (Approximate) SpO2 93% BMI 41.19 kg/m General Appearance: well appearing, in no acute distress, alert Skin: Skin color, texture, turgor normal for age; Eyes: conjunctiva pink and moist, no icterus, sclera white, non-injected Ears: external ears normal to inspection and palpation, canals clear, Left tympanic membrane normal. , Right tympanic membrane normal Nose/sinus: Nares normal. Septum midline. Mucosa normal. No drainage. Reported sinus tenderness to maxillary and frontal sinuses accompanied with grimacing. Neck: Thyroid normal size and symmetric without palpable nodules, Neck supple, No adenopathy Oropharynx: tongue midline and normal, soft palate, uvula, and tonsils normal, palpation of salivary glands negative Lymph nodes: No cervical lymphadenopathy and No supraclavicular lymphadenopathy Lungs: Lungs clear to auscultation. No wheezing, rhonchi, rales. Heart: RRR without murmur, gallop, or rubs. No ectopy DATA REVIEWED: No new labs ASSESSMENT/PLAN: 1. Essential hypertension - ICD9: 401.9, ICD10: I10 (primary diagnosis) Improved control, and patient only started increased dose a week ago. Parameters of monitoring explained to patient. - Continue current medication(s) - Encouraged dietary sodium restriction/DASH diet - Recommended regular aerobic exercise. - Recommend home blood pressure monitoring, to bring results in on next visit - Discussed need and benefit for weight loss. - Goal of BP <130/80 - Patient counselled on smoking cessation. - try stopping ibuprofen at night and try tylenol instead - start using your autopap regularly as uncontrolled sleep apnea can increase blood pressure - follow up in 3 months 2. Nicotine use disorder, F17.2 - ICD9: 305.1, ICD10: F17.200 - Cessation encouraged. - Physiologic and physical aspects of tobacco addiction as well as strategies for quitting were discussed. - Counseling was given focusing on the harmful effects of this addiction especially given the patient's medical condition(s) which will be worsened because of the chemicals in tobacco. 3. Acute non-recurrent sinusitis, unspecified location - ICD9: 461.9, ICD10: J01.90 - with the obvious sinus tenderness, history of emphysema, and patient is a smoker, will begin treatment with as per antibiotic as written, see orders - Supportive care with plenty of fluids, rest, and analgesia prn. - Follow up in 3-5 days if symptoms persist or worsen. Prescription instructions reviewed with patient as applicable. Potential red flag symptoms discussed with the patient. Reviewed appropriate action plan to take if red flag symptoms occur. Patient agreeable to treatment plan Mercedez Vincent APRN.CNP documented in this encounter [facility] 01-01-2023 Miscellaneous Notes January 02, 2023 PID: [id number] Yanelis Riley [id number] [place] [address] Dear Ms. Riley, We are pleased to inform you that the results of your recent breast imaging exam on 12/31/2022 are normal. Early detection of cancer is very important. We also understand recommendations regarding breast cancer screening are controversial. Please discuss with your primary care provider which strategy is best for you and whether a mammogram is right for you. Your imaging studies and report will be kept on file at [facility] as part of your permanent medical record and are available for your continuing care. Thank you for allowing us to help in meeting your health care needs. Sincerely, Dr. Ladd Interpreting Radiologist [facility] (Normal over 40) documented in this encounter [facility] 12-31-2022 Note HNO ID: [id number] Author: Janette Gray Service: ? Author Type: Manager Of Pmo Type: Progress Notes Filed: 12/31/2022 7:55 AM Note Text: Radiology Service Progress Note PATIENT NAME: Yanelis Riley DATE OF SERVICE: December 31, 2022 TIME: 7:20 AM PATIENT IDENTITY VERIFICATION COMPLETED USING TWO (2) IDENTIFIERS: Name and Date of confirmed by patient verbally. FALL SCREENING: Has the patient had 2 falls in the last year or 1 fall with injury or currently using an Ambulatory Assistive Device (Walker, Cane, Wheelchair, Crutches, etc.)? No PATIENT GENDER DATA: Female. status: : No status: NO. PATIENT RELEVANT IMPLANT DATA REVIEWED: Not Applicable RADIOLOGY DEPARTMENT: Mammography PERIPHERAL IV DATA: Not applicable SIGNED BY: Janette Gray December 31, 2022 7:20 AM [facility] 12-31-2022 History of Present illness Narrative Radiology Service Progress Note PATIENT NAME: Yanelis Riley DATE OF SERVICE: December 31, 2022 TIME: 7:20 AM PATIENT IDENTITY VERIFICATION COMPLETED USING TWO (2) IDENTIFIERS: Name and Date of confirmed by patient verbally. FALL SCREENING: Has the patient had 2 falls in the last year or 1 fall with injury or currently using an Ambulatory Assistive Device (Walker, Cane, Wheelchair, Crutches, etc.)? No PATIENT GENDER DATA: Female. status: : No status: NO. PATIENT RELEVANT IMPLANT DATA REVIEWED: Not Applicable RADIOLOGY DEPARTMENT: Mammography PERIPHERAL IV DATA: Not applicable SIGNED BY: Jess Grayo Emma December 31, 2022 7:20 AM documented in this encounter [facility] 12-27-2022 Note HNO ID: [id number] Author: Mercedez Vincent APRN.MICHELL Service: ? Author Type: Nurse Practitioner Type: Progress Notes Filed: 12/27/2022 12:54 PM Note Text: CC: Patient presents with: Recheck: DM follow up HPI Yanelis Riley is a 57 year old female who presents today for follow up on diabetes and blood pressure DIABETES MELLITUS: Ms. Riley denies excessive thirst or increased frequency of urination, chest pain or dyspnea , new numbness, new tingling or pain in extremities, new or unusual visual symptoms, low sugar/hypoglycemic reactions, weight loss/gain, lightheadedness/dizziness, and bowel changes/loose stools. Follows a diabetic diet most of the time. She is compliant with medication(s) and is tolerating med(s) without any side effects. Has not started the increase in trulicity yet, but will finish her current dose of 0.75 next week and then will start the increased dose in 2 weeks She reports checking her glucose on a once a day schedule with sugars in the fasting 189-200 range. Patient's last HgA1C was Hemoglobin A1C (%) Date Value 02/13/2021 8.9 11/16/2020 7.8 Hemoglobin A1C (POCT) (%) Date Value 12/06/2022 12.2 12/11/2021 9.0 ) HTN: Ms. Riley indicates that she is feeling well and denies any symptoms referable to elevated blood pressure. Specifically denies headache, chest pain, palpitations, dyspnea, and peripheral edema. Patient denies any side effects of her medication(s) and is compliant with their regimen. Did start increased dose of HCTZ as ordered at last appointment She does check BP's away from this office with average BP's in the 140s/80s range. Yanelis works out regularly 2 times per week with walking on treadmill and light weights. She watches her diet for sodium, low fat and low cholesterol most of the time. Last 3 Encounter BP Readings: Date: BP: 12/27/2022 144/86 12/11/2022 154/82 12/06/2022 160/87 REVIEW OF SYSTEMS General: no fevers, no chills, no night sweats, no recurrent infections, no change in appetite, no change in energy, and no significant changes in weight Respiratory: no cough, no wheezing, no shortness of breath, no hemoptysis Cardiovascular: no chest pain, no chest pressure, no palpitations, and no swelling GI: No nausea, vomiting, or diarrhea Endocrine: no fatigue, no weight gain, no weight loss, no polyuria, no polyphagia, and no polydipsia Neurologic: No headache, weakness, dizziness, memory loss, syncope. 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) 12/22/2015 Pulmonary emphysema (HCC) 12/22/2015 Single current episode of major depressive disorder 01/22/2016 PAST SURGICAL HISTORY Procedure Laterality Date BX OF BREAST; INCISIONAL Left 04/05/2021 COLONOSCOPY FLX DX W/COLLJ SPEC WHEN PFRMD 09/11/2020 Colonoscopy ESOPHAGOGASTRODUODENOSCOPY TRANSORAL DIAGNOSTIC 09/11/2020 EGD LAPAROSCOPY DIAGNOSTIC irregular menses LIG/TRNSXJ FLP TUBE ABDL/VAG APPR UNI/BI 1987 Tubal ligation PAST SURGICAL HISTORY OF 01/2012 back surgery PAST SURGICAL HISTORY OF 11/03/2019 incision and drainage of perianal abscess ALLERGIES Demerol [Meperidine] MEDICATIONS urea (CARMOL) 40 % Apply to affected area once daily. dulaglutide (TRULICITY) 1.5 mg/0.5 mL pen injector Inject 1.5 mg subcutaneously one time a week. atorvastatin (LIPITOR) 40 mg tablet Take 1 tablet by mouth once daily. at bedtime, for cholesterol. sertraline (ZOLOFT) 100 mg tablet Take 1 tablet by mouth once daily. montelukast (SINGULAIR) 10 mg tablet Take 1 tablet by mouth daily at bedtime. glimepiride (AMARYL) 4 mg tablet TAKE 1 TABLET BY MOUTH TWICE DAILY WITH MEALS hydroCHLOROthiazide (HYDRODIURIL, ESIDRIX) 25 mg tablet Take 1 tablet by mouth once daily. losartan (COZAAR) 100 mg tablet Take 1 tablet by mouth once daily. albuterol HFA (VENTOLIN HFA) 90 mcg/actuation inhaler Inhale 2 Puffs as instructed every 4 hours as needed for wheezing/shortness of breath. albuterol (PROVENTIL) 2.5 mg /3 mL (0.083 %) nebulizer solution Use 3 mL via nebulizer every 6 hours as needed. 1 vial contains 3 ml. cyclobenzaprine (FLEXERIL) 10 mg tablet Take 1 tablet by mouth three times daily as needed for muscle spasm. verapamil SR (CALAN SR, ISOPTIN SR) 180 mg CR tablet Take 1 tablet by mouth once daily. blood sugar diagnostic (AscadeTOUCH ULTRA TEST) test strip Test blood sugar(s) 2 times daily. Dx: Type 2 DM - Uncontrolled E11.42 Insulin: No Lancets lancets Test blood sugar(s) 2 times daily. Dx: Type 2 DM - Uncontrolled E11.42 Insulin: No fluticasone-vilanterol (BREO ELLIPTA) 200-25 mcg/dose inhaler INHALE 1 PUFF BY MOUTH (more content not included)... [facility] 12-27-2022 History of Present illness Narrative CC: Patient presents with: Recheck: DM follow up HPI Yanelis Riley is a 57 year old female who presents today for follow up on diabetes and blood pressure DIABETES MELLITUS: Ms. Riley denies excessive thirst or increased frequency of urination, chest pain or dyspnea , new numbness, new tingling or pain in extremities, new or unusual visual symptoms, low sugar/hypoglycemic reactions, weight loss/gain, lightheadedness/dizziness, and bowel changes/loose stools. Follows a diabetic diet most of the time. She is compliant with medication(s) and is tolerating med(s) without any side effects. Has not started the increase in trulicity yet, but will finish her current dose of 0.75 next week and then will start the increased dose in 2 weeks She reports checking her glucose on a once a day schedule with sugars in the fasting 189-200 range. Patient's last HgA1C was Hemoglobin A1C (%) Date Value 02/13/2021 8.9 11/16/2020 7.8 Hemoglobin A1C (POCT) (%) Date Value 12/06/2022 12.2 12/11/2021 9.0 ) HTN: Ms. Riley indicates that she is feeling well and denies any symptoms referable to elevated blood pressure. Specifically denies headache, chest pain, palpitations, dyspnea, and peripheral edema. Patient denies any side effects of her medication(s) and is compliant with their regimen. Did start increased dose of HCTZ as ordered at last appointment She does check BP's away from this office with average BP's in the 140s/80s range. Yanelis works out regularly 2 times per week with walking on treadmill and light weights. She watches her diet for sodium, low fat and low cholesterol most of the time. Last 3 Encounter BP Readings: Date: BP: 12/27/2022 144/86 12/11/2022 154/82 12/06/2022 160/87 REVIEW OF SYSTEMS General: no fevers, no chills, no night sweats, no recurrent infections, no change in appetite, no change in energy, and no significant changes in weight Respiratory: no cough, no wheezing, no shortness of breath, no hemoptysis Cardiovascular: no chest pain, no chest pressure, no palpitations, and no swelling GI: No nausea, vomiting, or diarrhea Endocrine: no fatigue, no weight gain, no weight loss, no polyuria, no polyphagia, and no polydipsia Neurologic: No headache, weakness, dizziness, memory loss, syncope. 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) 12/22/2015 Pulmonary emphysema (HCC) 12/22/2015 Single current episode of major depressive disorder 01/22/2016 PAST SURGICAL HISTORY Procedure Laterality Date BX OF BREAST; INCISIONAL Left 04/05/2021 COLONOSCOPY FLX DX W/COLLJ SPEC WHEN PFRMD 09/11/2020 Colonoscopy ESOPHAGOGASTRODUODENOSCOPY TRANSORAL DIAGNOSTIC 09/11/2020 EGD LAPAROSCOPY DIAGNOSTIC irregular menses LIG/TRNSXJ FLP TUBE ABDL/VAG APPR UNI/BI 1987 Tubal ligation PAST SURGICAL HISTORY OF 01/2012 back surgery PAST SURGICAL HISTORY OF 11/03/2019 incision and drainage of perianal abscess ALLERGIES Demerol [Meperidine] MEDICATIONS urea (CARMOL) 40 % Apply to affected area once daily. dulaglutide (TRULICITY) 1.5 mg/0.5 mL pen injector Inject 1.5 mg subcutaneously one time a week. atorvastatin (LIPITOR) 40 mg tablet Take 1 tablet by mouth once daily. at bedtime, for cholesterol. sertraline (ZOLOFT) 100 mg tablet Take 1 tablet by mouth once daily. montelukast (SINGULAIR) 10 mg tablet Take 1 tablet by mouth daily at bedtime. glimepiride (AMARYL) 4 mg tablet TAKE 1 TABLET BY MOUTH TWICE DAILY WITH MEALS hydroCHLOROthiazide (HYDRODIURIL, ESIDRIX) 25 mg tablet Take 1 tablet by mouth once daily. losartan (COZAAR) 100 mg tablet Take 1 tablet by mouth once daily. albuterol HFA (VENTOLIN HFA) 90 mcg/actuation inhaler Inhale 2 Puffs as instructed every 4 hours as needed for wheezing/shortness of breath. albuterol (PROVENTIL) 2.5 mg /3 mL (0.083 %) nebulizer solution Use 3 mL via nebulizer every 6 hours as needed. 1 vial contains 3 ml. cyclobenzaprine (FLEXERIL) 10 mg tablet Take 1 tablet by mouth three times daily as needed for muscle spasm. verapamil SR (CALAN SR, ISOPTIN SR) 180 mg CR tablet Take 1 tablet by mouth once daily. blood sugar diagnostic (ONETOUCH ULTRA TEST) test strip Test blood sugar(s) 2 times daily. Dx: Type 2 DM - Uncontrolled E11.42 Insulin: No Lancets lancets Test blood sugar(s) 2 times daily. Dx: Type 2 DM - Uncontrolled E11.42 Insulin: No fluticasone-vilanterol (BREO ELLIPTA) 200-25 mcg/dose inhaler INHALE 1 PUFF BY MOUTH ONCE DAILY DIRECTED. DO NOT CLICK OPEN UNTIL READY FOR DOSE. fluticasone (FLONASE) 50 mcg/actuation nasal spray Use 2 Sprays in each nostril once daily. Rinse mouth after use. urea (CARMOL) 40 % Apply to affected area as needed. insulin needles, DISPOSABLE, (PEN NEEDLE) 31 gauge x 5/16 Use one needle per dose. 1 per day. Nebulizer 1 Device four times daily as needed. NEBULIZER FOR HOME USE. DX: COPD Exacerbation FAMILY HISTORY Problem Relation Age of Onset Hypertension Mother Coronary Artery Disease Mother Cancer Mother kidney cancer Coronary Artery Disease Maternal Grandmother None Father NOT KNOWN None Sister Cancer Maternal Grandfather stomach Heart Daughter SVT Social History Tobacco Use Smoking status: Every Day Packs/day: 0.50 Years: 33.00 Pack years: 16.50 Types: Cigarettes Start date: 12/01/1979 Last attempt to quit: 11/02/2019 Years since quittin.1 Smokeless tobacco: Never Tobacco comments: down to half a pack daily now Vaping Use Vaping Use: Former Substance Use Topics Alcohol use: No Drug use: No PHYSICAL EXAM BP 152/82 Pulse 76 Resp 16 Wt 98 kg (216 lb) LMP 01/09/2016 (Approximate) BMI 40.81 kg/m General Appearance: well appearing, in no acute distress, alert Skin: Skin color, texture, turgor normal for age; Eyes: conjunctiva pink and moist, no icterus, sclera white, non-injected Neck: Thyroid normal size and symmetric without palpable nodules, No adenopathy Lymph nodes: No cervical lymphadenopathy and No supraclavicular lymphadenopathy Lungs: Lungs clear to auscultation. No wheezing, rhonchi, rales. Heart: RRR without murmur, gallop, or rubs. No ectopy Health maintenance reviewed with patient: BP CONTROLLED (<130/80) due on 02/13/2022 MAMMOGRAM due on 03/14/2022 DTAP,TDAP,TD(1 - Tdap) due on 05/15/2023 HEPATITIS B(1 of 3 - 3-dose series) due on 05/15/2023 PAP TESTING due on 05/15/2023 HPV TESTING due on 05/15/2023 COVID-19 VACCINE(3 - Booster for Pfizer series) due on 05/15/2023 PNEUMOCOCCAL(2 - PCV) due on 05/15/2023 INFLUENZA(1) due on 05/30/2023 ALPHA-1 ANTITRYPSIN DEFICIENCY SCREENING due on 12/06/2023 HBA1C due on 03/06/2023 COLORECTAL CANCER SCREENING due on 09/11/2023 DIABETIC FOOT EXAM due on 12/06/2023 ANNUAL PCP TEAM CHRONIC DISEASE VISIT due on 12/06/2023 DILATED RETINAL EXAM due on 12/12/2023 URINE ALBUMIN:CREATININE RATIO due on 12/24/2023 LDL CHOLESTEROL due on 12/24/2023 SPIROMETRY Completed HEPATITIS C SCREENING Completed SHINGRIX VACCINE Completed HIV SCREENING Discontinued DATA REVIEWED: Most recent labs ASSESSMENT/PLAN: 1. Essential hypertension - ICD9: 401.9, ICD10: I10 (primary diagnosis) - suboptimal control - Continue current medication(s) but increasing verapamil - Recommended regular aerobic exercise. - Recommend home blood pressure monitoring, to bring results in on next visit - Goal of BP <130/80 - VERAPAMIL ER (SR) 180 MG TABLET,EXTENDED RELEASE Follow up in 2-4 weeks 2. 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 Potential red flag symptoms discussed with the patient. Reviewed appropriate action plan to take if red flag symptoms occur. Patient agreeable to treatment plan. Mercedez Vincent APRN.CNP documented in this encounter [facility] 12-26-2022 Note HNO ID: [id number] Author: Belinda Boyce Service: ? Author Type: Physician Type: Progress Notes Filed: 12/26/2022 8:42 AM Note Text: Initial Office Visit Subjective: This 57 year old female presents to clinic for diabetic foot check. Patient has the following complaints: callus of b/l feet. She has callus to the left great toe and severe callus/fissure to right heel. Patient admits to being diabetic for 10 years now and states that their blood sugar was 149 mg/dL this AM. Patient +B/T/N in feet at this time. Patient -pain in legs when walking. No other pedal complaints at this time. Patient continues to smoke No change in medications or medical history since last visit. PAIN EVALUATION 12/23/20222033 Pain Level: 5 Pain Location: Back-Lower Description: Aching;Burning;Dull;Shooting;Throb adam Frequency: Continuous Intervention/Comfort measure: Modify dressing application;Other: See comment Hemoglobin A1C (%) Date Value 02/13/2021 8.9 11/16/2020 7.8 08/28/2020 9.9 06/28/2020 10.5 01/25/2020 8.0 11/03/2019 8.9 Hemoglobin A1C (POCT) (%) Date Value 12/06/2022 12.2 12/11/2021 9.0 PCP: Princess Madrid MD PAST MEDICAL HISTORY Diagnosis Date Chronic back pain 12/22/2015 Diabetes mellitus type 2, controlled, without complications (HCC) 12/22/2015 diagnosed 2012 Essential hypertension 12/22/2015 Hyperlipidemia 12/22/2015 KESHAWN on CPAP 12/22/2015 [facility] Pneumonia 12/25/2012 Poorly controlled type 2 diabetes mellitus with peripheral neuropathy (HCC) 12/22/2015 Pulmonary emphysema (HCC) 12/22/2015 Single current episode of major depressive disorder 01/22/2016 Current Outpatient Medications Medication Sig dulaglutide (TRULICITY) 1.5 mg/0.5 mL pen injector Inject 1.5 mg subcutaneously one time a week. atorvastatin (LIPITOR) 40 mg tablet Take 1 tablet by mouth once daily. at bedtime, for cholesterol. sertraline (ZOLOFT) 100 mg tablet Take 1 tablet by mouth once daily. montelukast (SINGULAIR) 10 mg tablet Take 1 tablet by mouth daily at bedtime. glimepiride (AMARYL) 4 mg tablet TAKE 1 TABLET BY MOUTH TWICE DAILY WITH MEALS hydroCHLOROthiazide (HYDRODIURIL, ESIDRIX) 25 mg tablet Take 1 tablet by mouth once daily. losartan (COZAAR) 100 mg tablet Take 1 tablet by mouth once daily. verapamil SR (CALAN SR, ISOPTIN SR) 120 mg CR tablet Take 1 tablet by mouth once daily. blood sugar diagnostic (ONETOUCH ULTRA TEST) test strip Test blood sugar(s) 2 times daily. Dx: Type 2 DM - Uncontrolled E11.42 Insulin: No Lancets lancets Test blood sugar(s) 2 times daily. Dx: Type 2 DM - Uncontrolled E11.42 Insulin: No fluticasone-vilanterol (BREO ELLIPTA) 200-25 mcg/dose inhaler INHALE 1 PUFF BY MOUTH ONCE DAILY DIRECTED. DO NOT CLICK OPEN UNTIL READY FOR DOSE. albuterol HFA (VENTOLIN HFA) 90 mcg/actuation inhaler Inhale 2 Puffs as instructed every 4 hours as needed for wheezing/shortness of breath. albuterol (PROVENTIL) 2.5 mg /3 mL (0.083 %) nebulizer solution Use 3 mL via nebulizer every 6 hours as needed. 1 vial contains 3 ml. cyclobenzaprine (FLEXERIL) 10 mg tablet Take 1 tablet by mouth three times daily as needed for muscle spasm. urea (CARMOL) 40 % Apply to affected area as needed. insulin needles, DISPOSABLE, (PEN NEEDLE) 31 gauge x 5/16 Use one needle per dose. 1 per day. Nebulizer 1 Device four times daily as needed. NEBULIZER FOR HOME USE. DX: COPD Exacerbation fluticasone (FLONASE) 50 mcg/actuation nasal spray Use 2 Sprays in each nostril once daily. Rinse mouth after use. No current facility-administered medications for this visit. ALLERGIES Allergen Reactions Demerol [Meperidine] Other: See Comments Gets mean and rude. Swats at people PAST SURGICAL HISTORY Procedure Laterality Date BX OF BREAST; INCISIONAL Left 04/05/2021 COLONOSCOPY FLX DX W/COLLJ SPEC WHEN PFRMD 09/11/2020 Colonoscopy ESOPHAGOGASTRODUODENOSCOPY TRANSORAL DIAGNOSTIC 09/11/2020 EGD LAPAROSCOPY DIAGNOSTIC irregular menses LIG/TRNSXJ FLP TUBE ABDL/VAG APPR UNI/BI 1988 Tubal ligation PAST SURGICAL HISTORY OF 01/2012 back surgery PAST SURGICAL HISTORY OF 11/03/2019 incision and drainage of perianal abscess FAMILY HISTORY Problem Relation Age of Onset Hypertension Mother Coronary Artery Disease Mother Cancer Mother kidney cancer Coronary Artery Disease Maternal Grandmother None Father NOT KNOWN None Sister Cancer Maternal Grandfather stomach Heart Daughter SVT Social History Tobacco Use Smoking status: Every Day Packs/day: 0.50 Years: 33.00 Pack years: 16.50 Types: Cigarettes Start date: 12/01/1979 Last attempt to quit: 11/02/2019 Years since quittin.1 Smokeless tobacco: Never Tobacco comments: down to half a pack daily now Vaping Use Vaping Use: Former Substance Use Topics Alcohol use: No Drug use: No REVIEW OF SYSTEMS GENERAL: Negative for Malaise, significant asia (more content not included)... [facility] 12-26-2022 Note HNO ID: [id number] Author: Ruma Castorena LPN Service: ? Author Type: LICENSED NURSE Type: Progress Notes Filed: 12/26/2022 8:42 AM Note Text: Patient presents with: Left Foot - Established Patient, Follow Up, Diabetic Foot Care Right Foot - Established Patient, Follow Up, Diabetic Foot Care Patient present to office for bilateral callous and diabetic foot exam. Ruma Castorena LPN [facility] 12-26-2022 Instructions Belinda Boyce - 12/26/2022 8:38 AM EST Soak your foot in epsom salts daily Use pummice stone as needed for callus Apply carmol 40 to areas of dry skin/callus Diabetes Foot Care Instructions When you have diabetes, proper foot care is very important. Poor foot care may lead to amputation of a foot or leg. As a person with diabetes, you are more vulnerable to foot problems, because diabetes can damage your nerves and reduce blood flow to your feet. Here are some diabetes foot care tips to follow: Wash and Dry Your Feet Daily Use mild soaps Use warm water Pat your skin dry; do not rub. Thoroughly dry your feet. After washing, use lotion on your feet to prevent cracking. Do not put lotion between your toes. Examine Your Feet Each Day Check the tops and bottoms of your feet. Have someone else look at your feet if you cannot see them. Check for dry, cracked skin. Look for blisters, cuts, scratches, or other sores. Check for redness, increased warmth, or tenderness when touching any area of your feet. Check for ingrown toenails, corns, and calluses. If you get a blister or sore from your shoes, do not pop it. Apply a bandage and wear a different pair of shoes. Take Care of Your Toenails Cut toenails after bathing, when they are soft. Cut toenails straight across and smooth with a nail file. Avoid cutting into the corners of toes. Do not cut cuticles. If you have neuropathy (or decreased sensation in your feet) a [employer]elsior machine tender should always cut your toenails. Be Careful When Exercising Walk and exercise in comfortable shoes. Do not exercise when you have open sores on your feet. Protect Your Feet With Shoes and Socks Never go barefoot. Always protect your feet by wearing shoes or hard-soled slippers or footwear. Avoid shoes with high heels and pointed toes. Avoid shoes that expose your toes or heels (such as open-toed shoes or sandals). These types of shoes increase your risk for injury and potential infections. Try on new footwear with the type of socks you usually wear. Do not wear new shoes for more than an hour at a time. Change your socks daily. Look and feel inside your shoes before putting them on to make sure there are no foreign objects or rough areas. Avoid tight socks. Wear natural-fiber socks (cotton, wool, or a cotton-wool blend). Wear special shoes if your health care provider recommends them. Wear shoes/boots that will protect your feet from various weather conditions (cold, moisture, etc.). Make sure your shoes fit properly. If you have neuropathy (nerve damage), you may not notice that your shoes are too tight. Perform the footwear test described below. Footwear Test Use this simple test to see if your shoes fit correctly: Stand on a piece of paper. (Make sure you are standing and not sitting, because your foot changes shape when you stand.) Trace the outline of your foot. Trace the outline of your shoe. Compare the tracings: Is the shoe too narrow? Is your foot crammed into the shoe? The shoe should be at least 1/2 inch longer than your longest toe and as wide as your foot. Proper Shoe Choices The following types of shoes are best for people with diabetes Closed toes and heels Leather uppers without a seam inside At least 1/2 inch extra space at the end of your longest toe Inside of shoe should be soft with no rough areas Outer sole should be made of stiff material Shoes should be at least as wide as your feet Tips for Foot Care in Diabetes Don't wait to treat a minor foot problem if you have diabetes. Follow your health care provider's guidelines and first aid guidelines. Report foot injuries and infections to your health care provider immediately. Check water temperature with your elbow, not your foot. Do not use a heating pad on your feet. Do not cross your legs. Do not self-treat your corns, calluses, or other foot problems. Go to your health care provider or excelsior machine tender to treat these conditions. documented in this encounter [facility] 12-26-2022 History of Present illness Narrative Images from the original note were not included. Initial Office Visit Subjective: This 57 year old female presents to clinic for diabetic foot check. Patient has the following complaints: callus of b/l feet. She has callus to the left great toe and severe callus/fissure to right heel. Patient admits to being diabetic for 10 years now and states that their blood sugar was 149 mg/dL this AM. Patient +B/T/N in feet at this time. Patient -pain in legs when walking. No other pedal complaints at this time. Patient continues to smoke No change in medications or medical history since last visit. PAIN EVALUATION 12/23/20222033 Pain Level: 5 Pain Location: Back-Lower Description: Aching;Burning;Dull;Shooting;Throb adam Frequency: Continuous Intervention/Comfort measure: Modify dressing application;Other: See comment Hemoglobin A1C (%) Date Value 02/13/2021 8.9 11/16/2020 7.8 08/28/2020 9.9 06/28/2020 10.5 01/25/2020 8.0 11/03/2019 8.9 Hemoglobin A1C (POCT) (%) Date Value 12/06/2022 12.2 12/11/2021 9.0 PCP: Princess Madrid MD PAST MEDICAL HISTORY Diagnosis Date Chronic back pain 12/22/2015 Diabetes mellitus type 2, controlled, without complications (HCC) 12/22/2015 diagnosed 2012 Essential hypertension 12/22/2015 Hyperlipidemia 12/22/2015 KESHAWN on CPAP 12/22/2015 DME [facility] Pneumonia 12/25/2012 Poorly controlled type 2 diabetes mellitus with peripheral neuropathy (HCC) 12/22/2015 Pulmonary emphysema (HCC) 12/22/2015 Single current episode of major depressive disorder 01/22/2016 Current Outpatient Medications Medication Sig dulaglutide (TRULICITY) 1.5 mg/0.5 mL pen injector Inject 1.5 mg subcutaneously one time a week. atorvastatin (LIPITOR) 40 mg tablet Take 1 tablet by mouth once daily. at bedtime, for cholesterol. sertraline (ZOLOFT) 100 mg tablet Take 1 tablet by mouth once daily. montelukast (SINGULAIR) 10 mg tablet Take 1 tablet by mouth daily at bedtime. glimepiride (AMARYL) 4 mg tablet TAKE 1 TABLET BY MOUTH TWICE DAILY WITH MEALS hydroCHLOROthiazide (HYDRODIURIL, ESIDRIX) 25 mg tablet Take 1 tablet by mouth once daily. losartan (COZAAR) 100 mg tablet Take 1 tablet by mouth once daily. verapamil SR (CALAN SR, ISOPTIN SR) 120 mg CR tablet Take 1 tablet by mouth once daily. blood sugar diagnostic ([employer] ULTRA TEST) test strip Test blood sugar(s) 2 times daily. Dx: Type 2 DM - Uncontrolled E11.42 Insulin: No Lancets lancets Test blood sugar(s) 2 times daily. Dx: Type 2 DM - Uncontrolled E11.42 Insulin: No fluticasone-vilanterol (BREO ELLIPTA) 200-25 mcg/dose inhaler INHALE 1 PUFF BY MOUTH ONCE DAILY DIRECTED. DO NOT CLICK OPEN UNTIL READY FOR DOSE. albuterol HFA (VENTOLIN HFA) 90 mcg/actuation inhaler Inhale 2 Puffs as instructed every 4 hours as needed for wheezing/shortness of breath. albuterol (PROVENTIL) 2.5 mg /3 mL (0.083 %) nebulizer solution Use 3 mL via nebulizer every 6 hours as needed. 1 vial contains 3 ml. cyclobenzaprine (FLEXERIL) 10 mg tablet Take 1 tablet by mouth three times daily as needed for muscle spasm. urea (CARMOL) 40 % Apply to affected area as needed. insulin needles, DISPOSABLE, (PEN NEEDLE) 31 gauge x 5/16 Use one needle per dose. 1 per day. Nebulizer 1 Device four times daily as needed. NEBULIZER FOR HOME USE. DX: COPD Exacerbation fluticasone (FLONASE) 50 mcg/actuation nasal spray Use 2 Sprays in each nostril once daily. Rinse mouth after use. No current facility-administered medications for this visit. ALLERGIES Allergen Reactions Demerol [Meperidine] Other: See Comments Francisco J munoz and brianne. Swats at people PAST SURGICAL HISTORY Procedure Laterality Date BX OF BREAST; INCISIONAL Left 04/05/2021 COLONOSCOPY FLX DX W/COLLJ SPEC WHEN PFRMD 09/11/2020 Colonoscopy ESOPHAGOGASTRODUODENOSCOPY TRANSORAL DIAGNOSTIC 09/11/2020 EGD LAPAROSCOPY DIAGNOSTIC irregular menses LIG/TRNSXJ FLP TUBE ABDL/VAG APPR UNI/BI 1988 Tubal ligation PAST SURGICAL HISTORY OF 01/2012 back surgery PAST SURGICAL HISTORY OF 11/03/2019 incision and drainage of perianal abscess FAMILY HISTORY Problem Relation Age of Onset Hypertension Mother Coronary Artery Disease Mother Cancer Mother kidney cancer Coronary Artery Disease Maternal Grandmother None Father NOT KNOWN None Sister Cancer Maternal Grandfather stomach Heart Daughter SVT Social History Tobacco Use Smoking status: Every Day Packs/day: 0.50 Years: 33.00 Pack years: 16.50 Types: Cigarettes Start date: 12/01/1979 Last attempt to quit: 11/02/2019 Years since quittin.1 Smokeless tobacco: Never Tobacco comments: down to half a pack daily now Vaping Use Vaping Use: Former Substance Use Topics Alcohol use: No Drug use: No REVIEW OF SYSTEMS GENERAL: Negative for Malaise, significant weight loss, fever RESPIRATORY: Negative for cough, wheezing and shortness of breath CARDIOVASCULAR: Negative for chest pain, leg swelling and palpitations GI: Negative for abdominal discomfort, blood in stools or black stools and change in bowel habits : Negative for dysuria, frequency and incontinence MUSCULOSKELETAL: Negative for joint pain or swelling, back pain, and muscle pain. SKIN: Negative for lesions, rash, and itching. HEMATOLOGY/LYMPHOLOGY Negative for prolonged bleeding, bruising easily, and swollen nodes. ENDOCRINE: Negative for cold or heat intolerance, polyuria, polydipsia and goiter. NEURO: negative The remainder of the review of systems is noncontributory. Objective: Patient presents to clinic ambulating in [facility] Constitutional: Pt is a well developed 57 year old female who is alert, oriented, cooperative and in no apparent distress. Eyes: Following during examination. No redness or drainage. Respiratory: RR normal and nonlabored. Even breathing. No evidence of distress. Psychology: Patient is engaged during conversation. Normal affect and mood. Does not appear depressed or anxious. Vasc: DP and PT pulses are palpable bilateral. CFT is less than 5 seconds bilateral. Skin temperature is warm to warm proximal to distal bilateral. There is no edema or varicosities noted. Hair growth decreased. Neuro: Protective sensation is intact to the foot and toes when tested with the 5.07 SWM bilateral. Vibratory sensation is decreased at the hallux bilateral. + Significant neurological defecits. Derm: Inspection and palpation performed. Nails 1-5 b/l are normal length. Increased thickening of some nails. Skin is dry, scaly with fissures to b/l heel. no ulcerations, scars, verruca or other lesions noted. Ortho: Ankle joint DF is full with the knee extended and full with knee flexed. No pain or crepitus noted. STJ, MTJ ROM are full and free of pain or crepitus. Muscle strength is 5/5 for dorsiflexors, plantarflexors, inverters, everters. Digital deformities include no. Assessment: (E11.42, E11.65) Poorly controlled type 2 diabetes mellitus with peripheral neuropathy (HCC) (L84) Callus of foot Plan: 1. Patient was seen and evaluated. 2. Patient was instructed on the continued importance of diabetic foot care along with proper diet and keeping their blood sugar under control to prevent complications. Instructions given both oral and written. 3. Patient suffers from severe dryness of both feet with fissues of heel. Extensive debridement was performed with 15 blade to right heel. Dremmel was also used to b/l heel and to side of b/l foot. Will have patient use carmol 40 daily and use pummice stone as needed. 4. Offered diabetic shoes but patient declined 5. Smoking cessation encouraged Belinda Boyce DPM Patient presents with: Left Foot - Established Patient, Follow Up, Diabetic Foot Care Right Foot - Established Patient, Follow Up, Diabetic Foot Care Patient present to office for bilateral callous and diabetic foot exam. Ruma Castorena LPN documented in this encounter [facility] 12-23-2022 Note HNO ID: [id number] Author: Debbi Acuña RPh Service: ? Author Type: Pharmacist Type: Progress Notes Filed: 12/26/2022 11:40 PM Note Text: Primary Care Pharmacy Visit CC (Reason for Consult): DM Goal: A1c<8% Last Collaborating Physician/LAWN MOWER Visit: 12/06/22 Yanelis Riley is a 57 year old female presenting for follow up visit by telephone. Patient consents to pharmacy collaborative practice agreement. At last visit with HOOP MAKER on 12/06/22 the following changes were made: patient was instructed to resume Trulicity INTERIM HISTORY: Was out of Trulicity for several weeks, recently restarted and has completed 3 injections of starting dose Also stopped metformin over a month ago due to diarrhea and does not want to resume Readings ranging 160s-180s Has joined [employer] and plans to be increase physical activity Current DM Medications: Trulicity 0.75 mg once weekly Glimepiride 4 mg twice daily with meals ROS: Patient denies CP, SOB, CARTER, blurred vision, dizziness or lightheadedness Patient denies nausea, vomiting, diarrhea, abdominal pain Patient denies symptoms of hypoglycemia (sweating, anxiety, palpitations, hunger, and tremor) Patient denies symptoms of hyperglycemia (polyuria, polydipsia, polyphagia) Patient denies potential medication adverse effects DIET/EXERCISE/SOCIAL Hx: Typically having only 2 meals a day Breakfast: typically skips Lunch: bologna sandwich, PB and jelly Dinner: pasta or mushrooms/gravy, sweet potato, frozen pizza Snacks: not snacking often , may have cookies once in a while Beverages: Coke zero MEDICATIONS: Pill bottles are not present. Adherence: denies missed doses. 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 Without Prior Episode (Hcc) Morbid Obesity With Bmi of 40.0-44.9, Adult (Hcc) Perineal Abscess Nicotine use disorder, F17.2 Leukocytosis Chronic Diarrhea 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) 12/22/2015 Pulmonary emphysema (HCC) 12/22/2015 Single current episode of major depressive disorder 01/22/2016 ALLERGIES Allergen Reactions Demerol [Meperidine] Other: See Comments Gets alexander and rude. Swats at people Current Outpatient Medications Medication Sig atorvastatin (LIPITOR) 40 mg tablet Take 1 tablet by mouth once daily. at bedtime, for cholesterol. sertraline (ZOLOFT) 100 mg tablet Take 1 tablet by mouth once daily. montelukast (SINGULAIR) 10 mg tablet Take 1 tablet by mouth daily at bedtime. dulaglutide (TRULICITY) 0.75 mg/0.5 mL pen injector Inject 0.75 mg subcutaneously one time a week. Inject dose once per week. Discard Pen After glimepiride (AMARYL) 4 mg tablet TAKE 1 TABLET BY MOUTH TWICE DAILY WITH MEALS hydroCHLOROthiazide (HYDRODIURIL, ESIDRIX) 25 mg tablet Take 1 tablet by mouth once daily. losartan (COZAAR) 100 mg tablet Take 1 tablet by mouth once daily. verapamil SR (CALAN SR, ISOPTIN SR) 120 mg CR tablet Take 1 tablet by mouth once daily. blood sugar diagnostic ([employer] ULTRA TEST) test strip Test blood sugar(s) 2 times daily. Dx: Type 2 DM - Uncontrolled E11.42 Insulin: No Lancets lancets Test blood sugar(s) 2 times daily. Dx: Type 2 DM - Uncontrolled E11.42 Insulin: No fluticasone-vilanterol (BREO ELLIPTA) 200-25 mcg/dose inhaler INHALE 1 PUFF BY MOUTH ONCE DAILY DIRECTED. DO NOT CLICK OPEN UNTIL READY FOR DOSE. albuterol HFA (VENTOLIN HFA) 90 mcg/actuation inhaler Inhale 2 Puffs as instructed every 4 hours as needed for wheezing/shortness of breath. albuterol (PROVENTIL) 2.5 mg /3 mL (0.083 %) nebulizer solution Use 3 mL via nebulizer every 6 hours as needed. 1 vial contains 3 ml. cyclobenzaprine (FLEXERIL) 10 mg tablet Take 1 tablet by mouth three times daily as needed for muscle spasm. fluticasone (FLONASE) 50 mcg/actuation nasal spray Use 2 Sprays in each nostril once daily. Rinse mouth after use. urea (CARMOL) 40 % Apply to affected area as needed. insulin needles, DISPOSABLE, (PEN NEEDLE) 31 gauge x 5/16 Use one needle per dose. 1 per day. Nebulizer 1 Device four times daily as needed. NEBULIZER FOR HOME USE. DX: COPD Exacerbation No current facility-administered medications for this visit. EXAM: Last 3 Encounter BP Readings: Date: BP: 12/11/2022 154/82 12/06/2022 160/87 03/01/2022 158/90 Wt: 96.6 kg (213 lb) BMI: 40.25 kg/(m2) LABS: Lab Results Component Value Date HBA1C 12.2 12/06/2022 HBA1C 9.0 12/11/2021 HBA1C (more content not included)... [facility] 12-23-2022 History of Present illness Narrative Primary Care Pharmacy Visit CC (Reason for Consult): DM Goal: A1c<8% Last Collaborating Physician/LAWN MOWER Visit: 12/06/22 Yanelis Riley is a 57 year old female presenting for follow up visit by telephone. Patient consents to pharmacy collaborative practice agreement. At last visit with HOOP MAKER on 12/06/22 the following changes were made: patient was instructed to resume Trulicity INTERIM HISTORY: Was out of Trulicity for several weeks, recently restarted and has completed 3 injections of starting dose Also stopped metformin over a month ago due to diarrhea and does not want to resume Readings ranging 160s-180s Has joined [employer] and plans to be increase physical activity Current DM Medications: Trulicity 0.75 mg once weekly Glimepiride 4 mg twice daily with meals ROS: Patient denies CP, SOB, CARTER, blurred vision, dizziness or lightheadedness Patient denies nausea, vomiting, diarrhea, abdominal pain Patient denies symptoms of hypoglycemia (sweating, anxiety, palpitations, hunger, and tremor) Patient denies symptoms of hyperglycemia (polyuria, polydipsia, polyphagia) Patient denies potential medication adverse effects DIET/EXERCISE/SOCIAL Hx: Typically having only 2 meals a day Breakfast: typically skips Lunch: bologna sandwich, PB and jelly Dinner: pasta or mushrooms/gravy, sweet potato, frozen pizza Snacks: not snacking often , may have cookies once in a while Beverages: Coke zero MEDICATIONS: Pill bottles are not present. Adherence: denies missed doses. 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 Without Prior Episode (Hcc) Morbid Obesity With Bmi of 40.0-44.9, Adult ([facility]) Perineal Abscess Nicotine use disorder, F17.2 Leukocytosis Chronic Diarrhea PAST MEDICAL HISTORY Diagnosis Date Chronic back pain 12/22/2015 Diabetes mellitus type 2, controlled, without complications ([facility]) 12/22/2015 diagnosed 2012 Essential hypertension 12/22/2015 Hyperlipidemia 12/22/2015 KESHAWN on CPAP 12/22/2015 [facility] Pneumonia 12/25/2012 Poorly controlled type 2 diabetes mellitus with peripheral neuropathy ([facility]) 12/22/2015 Pulmonary emphysema ([facility]) 12/22/2015 Single current episode of major depressive disorder 01/22/2016 ALLERGIES Allergen Reactions Demerol [Meperidine] Other: See Comments Francisco J munoz and brianne. Swats at people Current Outpatient Medications Medication Sig atorvastatin (LIPITOR) 40 mg tablet Take 1 tablet by mouth once daily. at bedtime, for cholesterol. sertraline (ZOLOFT) 100 mg tablet Take 1 tablet by mouth once daily. montelukast (SINGULAIR) 10 mg tablet Take 1 tablet by mouth daily at bedtime. dulaglutide (TRULICITY) 0.75 mg/0.5 mL pen injector Inject 0.75 mg subcutaneously one time a week. Inject dose once per week. Discard Pen After glimepiride (AMARYL) 4 mg tablet TAKE 1 TABLET BY MOUTH TWICE DAILY WITH MEALS hydroCHLOROthiazide (HYDRODIURIL, ESIDRIX) 25 mg tablet Take 1 tablet by mouth once daily. losartan (COZAAR) 100 mg tablet Take 1 tablet by mouth once daily. verapamil SR (CALAN SR, ISOPTIN SR) 120 mg CR tablet Take 1 tablet by mouth once daily. blood sugar diagnostic ([employer] ULTRA TEST) test strip Test blood sugar(s) 2 times daily. Dx: Type 2 DM - Uncontrolled E11.42 Insulin: No Lancets lancets Test blood sugar(s) 2 times daily. Dx: Type 2 DM - Uncontrolled E11.42 Insulin: No fluticasone-vilanterol (BREO ELLIPTA) 200-25 mcg/dose inhaler INHALE 1 PUFF BY MOUTH ONCE DAILY DIRECTED. DO NOT CLICK OPEN UNTIL READY FOR DOSE. albuterol HFA (VENTOLIN HFA) 90 mcg/actuation inhaler Inhale 2 Puffs as instructed every 4 hours as needed for wheezing/shortness of breath. albuterol (PROVENTIL) 2.5 mg /3 mL (0.083 %) nebulizer solution Use 3 mL via nebulizer every 6 hours as needed. 1 vial contains 3 ml. cyclobenzaprine (FLEXERIL) 10 mg tablet Take 1 tablet by mouth three times daily as needed for muscle spasm. fluticasone (FLONASE) 50 mcg/actuation nasal spray Use 2 Sprays in each nostril once daily. Rinse mouth after use. urea (CARMOL) 40 % Apply to affected area as needed. insulin needles, DISPOSABLE, (PEN NEEDLE) 31 gauge x 5/16 Use one needle per dose. 1 per day. Nebulizer 1 Device four times daily as needed. NEBULIZER FOR HOME USE. DX: COPD Exacerbation No current facility-administered medications for this visit. EXAM: Last 3 Encounter BP Readings: Date: BP: 12/11/2022 154/82 12/06/2022 160/87 03/01/2022 158/90 Wt: 96.6 kg (213 lb) BMI: 40.25 kg/(m^2) LABS: Lab Results Component Value Date HBA1C 12.2 12/06/2022 HBA1C 9.0 12/11/2021 HBA1C 8.9 02/13/2021 HBA1C 7.8 11/16/2020 HBA1C 9.9 08/28/2020 CMP: Glucose 96 11/16/2020 BUN 11 11/16/2020 Creatinine 0.61 11/16/2020 Sodium 140 11/16/2020 Potassium 4.6 11/16/2020 Chloride 103 11/16/2020 CO2 25 11/16/2020 Protein, Total 7.2 11/01/2019 Albumin 3.8 11/01/2019 Calcium 9.7 11/16/2020 Alkaline Phosphatase 128 11/01/2019 Bilirubin, Total 0.4 11/01/2019 AST 12 11/01/2019 ALT 12 11/01/2019 GFR (mL/MIN) Date Value 06/28/2020 84 GFR (mL/MIN) Date Value 06/28/2020 84 eGFR- (no units) Date Value 11/16/2020 >60 EGFR: >60 mL/min/1.73m2 Lab Results Component Value Date CHOL 124 11/16/2020 LDL 49 11/16/2020 HDL 43 11/16/2020 TG 159 11/16/2020 The ASCVD Risk score (Federico NIETO, et al., 2019) failed to calculate for the following reasons: The valid total cholesterol range is 130 to 320 mg/dL Albumin/Creat Ratio (mg/g) Date Value 11/16/2020 1,255 (H) PHARMACOTHERAPY ASSESSMENT/PLAN: 1. Poorly controlled type 2 diabetes mellitus with peripheral neuropathy (HCC) - ICD9: 250.60, 357.2, ICD10: E11.42, E11.65 (primary diagnosis) A1c goal < 8%; not at goal (last A1c 8.9%); SMBG improving since resuming Trulicity.Today, will optimize Trulicity dose for improved BG control. Renal function and LFTs appropriate for continued use. Increase Trulicity 1.5 mg once weekly Continue Glimepiride 4 mg twice daily with meals 2. Medication management - ICD9: V58.69, ICD10: Z79.899 Reviewed name, strength, route, frequency and time of administration of medications. Medication list updated as described in above medication chart. Follow up: Patient is scheduled to see PCP team on 12/27/22. Patient to follow up with pharmD on 01/20/23. Patient verbalized understanding of instructions. Debbi Acuña PharmD, BCACP Primary Care Clinical Pharmacist The majority of the pharmacy visit (> 50%) was spent counseling and/or coordinating care for the patient. [Telephonic] time was 25 minutes. documented in this encounter [facility] 12-11-2022 Note HNO ID: [id number] Author: Margot Swenson RN Service: ? Author Type: Registered Nurse Type: Progress Notes Filed: 12/11/2022 10:35 AM Note Text: DIABETES CARE AND EDUCATION VISIT Location: [place] Type of visit: In person individual PATIENT'S MAIN CONCERN TODAY: I don't know, they made this appointment for me. Support person present for education today: none Cognitive ability: Alert and oriented Motivation to learn: Interested Learning barriers identified by educator: none Method of instruction: written, verbal, and demonstration DIABETES FINDINGS: Monitoring: reports her fasting sugars range from 150-250 mg/dL Meal Plannin meals per day with a snack of 25-30g carb close to bedtime - breakfast and an afternoon meal typically, reports before her most recent A1c she had been drinking a case of regular soda a day. Switched to water, unsweetened tea and zero sugar sodas since. Medications: pt states they are currently taking Trulicity, was not tolerating metformin due to GI distress, needle phobic, spouse gives her injection as she hides her face under a pillow to not see Problem Solving:encouraged f/u Physical Activity: Joined [employer] lately, has been walking, encouraged her that even if she has to take breaks it was valuable Reducing Risks: benefit of better control discussed Healthy Coping: not discussed HANDOUTS: Healthy You: Survival Skills and Healthy You: Planning Healthy Meals LEARNING RESPONSE: Healthy eating: Demonstrated understanding/competency today or at previous visit Being active: Demonstrated understanding/competency today or at previous visit POSSIBLE FUTURE TOPICS: 1. DIABETES CARE AND EDUCATION PLAN: Individual follow-up Time Spent (Minutes): 30 This visit note will be communicated to the healthcare provider via access to shared medical record. SIGNATURE: Margot Swenson RN PATIENT NAME: Yanelis Riley DATE: December 11, 2022 TIME: 10:18 AM PAGER: [facility] 12-11-2022 Note HNO ID: [id number] Author: Laura Marr RN Service: ? Author Type: Registered Nurse Type: Progress Notes Filed: 12/11/2022 9:49 AM Note Text: Complete SDOH from [employer]. Does patient have a support person/ people who they would like to invite with them to their appointments: patient (pt. lives with her ) pt is disabled How many meals does the patient eat per day: 2 breakfast and late afternoon lunch/ dinner. Does patient have support with grocery shopping/preparing meals/who: pt and do it together How many calories per day does the patient consume: What types of food do you typically eat during the day: pt loves her rolls/ bread. states she must have her bread Does patient have difficulty getting food: not receiving food assistance, does not qualify at this time. pt states she eats out a lot. At [employer] or [employer] Does patient skip/portion medication doses: No Does patient have a family history of diabetes: No What are the patient's concerns about diagnoses: diabetic coma Readiness to learn about diabetes: low/ level of education: High School Graduate or Less. Depression screening Score: 0 How do you prefer to receive information: Phone How do you prefer to be contacted by us for follow up education/ information: Phone or My Chart Goals: Meet with bottom turning lathe tender Pt has upcoming eye and podiatry appts. Pt states she has been going to [email or web address] 3 times per week since October [facility] 12-11-2022 History of Present illness Narrative DIABETES CARE AND EDUCATION VISIT Location: [place] Type of visit: In person individual PATIENT'S MAIN CONCERN TODAY: I don't know, they made this appointment for me. Support person present for education today: none Cognitive ability: Alert and oriented Motivation to learn: Interested Learning barriers identified by educator: none Method of instruction: written, verbal, and demonstration DIABETES FINDINGS: Monitoring: reports her fasting sugars range from 150-250 mg/dL Meal Plannin meals per day with a snack of 25-30g carb close to bedtime - breakfast and an afternoon meal typically, reports before her most recent A1c she had been drinking a case of regular soda a day. Switched to water, unsweetened tea and zero sugar sodas since. Medications: pt states they are currently taking Trulicity, was not tolerating metformin due to GI distress, needle phobic, spouse gives her injection as she hides her face under a pillow to not see Problem Solving:encouraged f/u Physical Activity: Joined a [employer] lately, has been walking, encouraged her that even if she has to take breaks it was valuable Reducing Risks: benefit of better control discussed Healthy Coping: not discussed HANDOUTS: Healthy You: Survival Skills and Healthy You: Planning Healthy Meals LEARNING RESPONSE: Healthy eating: Demonstrated understanding/competency today or at previous visit Being active: Demonstrated understanding/competency today or at previous visit POSSIBLE FUTURE TOPICS: 1. DIABETES CARE AND EDUCATION PLAN: Individual follow-up Time Spent (Minutes): 30 This visit note will be communicated to the healthcare provider via access to shared medical record. SIGNATURE: Margot Swenson RN PATIENT NAME: Yanelis Riley DATE: December 11, 2022 TIME: 10:18 AM PAGER: documented in this encounter [facility] 12-11-2022 Miscellaneous Notes Pt here for structured DM program. Would benefit from meeting with Lanie Bosch RD. Please place orders for nutrition counseling and have PSS call pt to schedule. Thank you! Laura Marr RN documented in this encounter [facility] 12-11-2022 History of Present illness Narrative Complete SDOH from [employer]. Does patient have a support person/ people who they would like to invite with them to their appointments: patient (pt. lives with her ) pt is disabled How many meals does the patient eat per day: 2 breakfast and late afternoon lunch/ dinner. Does patient have support with grocery shopping/preparing meals/who: pt and do it together How many calories per day does the patient consume: What types of food do you typically eat during the day: pt loves her rolls/ bread. states she must have her bread Does patient have difficulty getting food: not receiving food assistance, does not qualify at this time. pt states she eats out a lot. At [employer] or [employer] Does patient skip/portion medication doses: No Does patient have a family history of diabetes: No What are the patient's concerns about diagnoses: diabetic coma Readiness to learn about diabetes: low/ level of education: High School Graduate or Less. Depression screening Score: 0 How do you prefer to receive information: Phone How do you prefer to be contacted by us for follow up education/ information: Phone or My Chart Goals: Meet with bottom turning lathe tender Pt has upcoming eye and podiatry appts. Pt states she has been going to [email or web address] 3 times per week since October documented in this encounter [facility] 12-06-2022 Note HNO ID: [id number] Author: Mercedez Vincent APRN.MICHELL Service: ? Author Type: Nurse Practitioner Type: Progress Notes Filed: 12/06/2022 1:24 PM Note Text: CC: Patient presents with: Recheck: Medication follow up Immunizations: Flu vaccination HPI Yanelis Riley is a 57 year old female who presents today for routine follow up. DIABETES MELLITUS: Ms. Riley denies excessive thirst or increased frequency of urination, chest pain or dyspnea , numbness, tingling or pain in extremities, new or unusual visual symptoms, low sugar/hypoglycemic reactions, weight loss/gain, and lightheadedness/dizziness, Follows a diabetic diet some of the time. She is compliant with medication(s) except stopped metformin a month ago as it was causing diarrhea. No further diarrhea since stopping. Also has been out of trulicity for the past few weeks. She reports checking her glucose on a once a day schedule with sugars in the fasting 120s range, but has only been checking for the past week. Patient's last HgA1C was Hemoglobin A1C (%) Date Value 02/13/2021 8.9 11/16/2020 7.8 Hemoglobin A1C (POCT) (%) Date Value 12/11/2021 9.0 ) Last Ophthalmology exam was within the past 12 months and has her annual exam next Friday. HTN: Ms. Riley indicates that she is feeling well and denies any symptoms referable to elevated blood pressure. Specifically denies headache, chest pain, palpitations, dyspnea, and peripheral edema. Patient denies any side effects of her medication(s) and is compliant with their regimen. She does check BP's away from this office with average BP's in the 120s/80s range. Yanelis denies regular aerobic exercise but is starting to walk treadmill at [employer]. She watches her diet for sodium, low fat and low cholesterol some of the time. Last 3 Encounter BP Readings: Date: BP: 12/06/2022 172/100 03/01/2022 158/90 12/11/2021 132/70 COPD: Uses albuterol inhaler once every few day. Uses breo inhaler as directed. No recent exacerbations, steroid usage, increase in shortness of breath wheezing or cough. Has not followed back up with pulmonology as instructed by them previously this year. Goes to [facility]. Smokes 1/2-1 ppd REVIEW OF SYSTEMS General: no fevers, no chills, no night sweats, no recurrent infections, no change in appetite, no change in energy, and no significant changes in weight Respiratory: no cough, no wheezing, no shortness of breath, no hemoptysis Cardiovascular: no chest pain, no chest pressure, no palpitations, and no swelling GI: No nausea, vomiting, or diarrhea Endocrine: no fatigue, no polyuria, no polyphagia, and no polydipsia Neurologic: No headache, weakness, numbness, tingling, dizziness, syncope. 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) 12/22/2015 Pulmonary emphysema (HCC) 12/22/2015 Single current episode of major depressive disorder 01/22/2016 PAST SURGICAL HISTORY Procedure Laterality Date BX OF BREAST; INCISIONAL Left 04/05/2021 COLONOSCOPY FLX DX W/COLLJ SPEC WHEN PFRMD 09/11/2020 Colonoscopy ESOPHAGOGASTRODUODENOSCOPY TRANSORAL DIAGNOSTIC 09/11/2020 EGD LAPAROSCOPY DIAGNOSTIC irregular menses LIG/TRNSXJ FLP TUBE ABDL/VAG APPR UNI/BI 1987 Tubal ligation PAST SURGICAL HISTORY OF 01/2012 back surgery PAST SURGICAL HISTORY OF 11/03/2019 incision and drainage of perianal abscess ALLERGIES Demerol [Meperidine] MEDICATIONS blood sugar diagnostic ([employer] ULTRA TEST) test strip Test blood sugar(s) 2 times daily. Dx: Type 2 DM - Uncontrolled E11.42 Insulin: No Lancets lancets Test blood sugar(s) 2 times daily. Dx: Type 2 DM - Uncontrolled E11.42 Insulin: No atorvastatin (LIPITOR) 40 mg tablet TAKE 1 TABLET BY MOUTH ONCE DAILY AT BEDTIME FOR CHOLESTEROL hydroCHLOROthiazide (HYDRODIURIL, ESIDRIX) 12.5 mg tablet Take 1 tablet by mouth once daily. fluticasone-vilanterol (BREO ELLIPTA) 200-25 mcg/dose inhaler INHALE 1 PUFF BY MOUTH ONCE DAILY DIRECTED. DO NOT CLICK OPEN UNTIL READY FOR DOSE. albuterol HFA (VENTOLIN HFA) 90 mcg/actuation inhaler Inhale 2 Puffs as instructed every 4 hours as needed for wheezing/shortness of breath. albuterol (PROVENTIL) 2.5 mg /3 mL (0.083 %) nebulizer solution Use 3 mL via nebulizer every 6 hours as needed. 1 vial contains 3 ml. dulaglutide (TRULICITY) 0.75 mg/0.5 mL pen injector Inject 0.75 mg subcutaneously one time a week. Inject dose once per week. Discard Pen After sertraline (ZOLOFT) 100 mg tablet Take 1 tablet by mouth once daily. glimepiride (AMARYL) 4 mg tablet TAKE 1 TABLET BY MOUTH TWICE DAILY WITH MEALS cyclobenzap (more content not included)... [facility] 12-06-2022 History of Present illness Narrative CC: Patient presents with: Recheck: Medication follow up Immunizations: Flu vaccination HPI Yanelis Riley is a 57 year old female who presents today for routine follow up. DIABETES MELLITUS: Ms. Riley denies excessive thirst or increased frequency of urination, chest pain or dyspnea , numbness, tingling or pain in extremities, new or unusual visual symptoms, low sugar/hypoglycemic reactions, weight loss/gain, and lightheadedness/dizziness, Follows a diabetic diet some of the time. She is compliant with medication(s) except stopped metformin a month ago as it was causing diarrhea. No further diarrhea since stopping. [facility] She reports checking her glucose on a once a day schedule with sugars in the fasting 120s range, but has only been checking for the past week. Patient's last HgA1C was Hemoglobin A1C (%) Date Value 02/13/2021 8.9 11/16/2020 7.8 Hemoglobin A1C (POCT) (%) Date Value 12/11/2021 9.0 ) Last Ophthalmology exam was within the past 12 months and has her annual exam next Friday. HTN: Ms. Riley indicates that she is feeling well and denies any symptoms referable to elevated blood pressure. Specifically denies headache, chest pain, palpitations, dyspnea, and peripheral edema. Patient denies any side effects of her medication(s) and is compliant with their regimen. She does check BP's away from this office with average BP's in the 120s/80s range. Yanelis denies regular aerobic exercise but is starting to walk treadmill at [employer]. She watches her diet for sodium, low fat and low cholesterol some of the time. Last 3 Encounter BP Readings: Date: BP: 12/06/2022 172/100 03/01/2022 158/90 12/11/2021 132/70 COPD: Uses albuterol inhaler once every few day. Uses breo inhaler as directed. No recent exacerbations, steroid usage, increase in shortness of breath wheezing or cough. Has not followed back up with pulmonology as instructed by them previously this year. Goes to [facility]. Smokes 1/2-1 ppd REVIEW OF SYSTEMS General: no fevers, no chills, no night sweats, no recurrent infections, no change in appetite, no change in energy, and no significant changes in weight Respiratory: no cough, no wheezing, no shortness of breath, no hemoptysis Cardiovascular: no chest pain, no chest pressure, no palpitations, and no swelling GI: No nausea, vomiting, or diarrhea Endocrine: no fatigue, no polyuria, no polyphagia, and no polydipsia Neurologic: No headache, weakness, numbness, tingling, dizziness, syncope. 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) 12/22/2015 Pulmonary emphysema (HCC) 12/22/2015 Single current episode of major depressive disorder 01/22/2016 PAST SURGICAL HISTORY Procedure Laterality Date BX OF BREAST; INCISIONAL Left 04/05/2021 COLONOSCOPY FLX DX W/COLLJ SPEC WHEN PFRMD 09/11/2020 Colonoscopy ESOPHAGOGASTRODUODENOSCOPY TRANSORAL DIAGNOSTIC 09/11/2020 EGD LAPAROSCOPY DIAGNOSTIC irregular menses LIG/TRNSXJ FLP TUBE ABDL/VAG APPR UNI/BI 1987 Tubal ligation PAST SURGICAL HISTORY OF 01/2012 back surgery PAST SURGICAL HISTORY OF 11/03/2019 incision and drainage of perianal abscess ALLERGIES Demerol [Meperidine] MEDICATIONS blood sugar diagnostic ([employer] ULTRA TEST) test strip Test blood sugar(s) 2 times daily. Dx: Type 2 DM - Uncontrolled E11.42 Insulin: No Lancets lancets Test blood sugar(s) 2 times daily. Dx: Type 2 DM - Uncontrolled E11.42 Insulin: No atorvastatin (LIPITOR) 40 mg tablet TAKE 1 TABLET BY MOUTH ONCE DAILY AT BEDTIME FOR CHOLESTEROL hydroCHLOROthiazide (HYDRODIURIL, ESIDRIX) 12.5 mg tablet Take 1 tablet by mouth once daily. fluticasone-vilanterol (BREO ELLIPTA) 200-25 mcg/dose inhaler INHALE 1 PUFF BY MOUTH ONCE DAILY DIRECTED. DO NOT CLICK OPEN UNTIL READY FOR DOSE. albuterol HFA (VENTOLIN HFA) 90 mcg/actuation inhaler Inhale 2 Puffs as instructed every 4 hours as needed for wheezing/shortness of breath. albuterol (PROVENTIL) 2.5 mg /3 mL (0.083 %) nebulizer solution Use 3 mL via nebulizer every 6 hours as needed. 1 vial contains 3 ml. dulaglutide (TRULICITY) 0.75 mg/0.5 mL pen injector Inject 0.75 mg subcutaneously one time a week. Inject dose once per week. Discard Pen After sertraline (ZOLOFT) 100 mg tablet Take 1 tablet by mouth once daily. glimepiride (AMARYL) 4 mg tablet TAKE 1 TABLET BY MOUTH TWICE DAILY WITH MEALS cyclobenzaprine (FLEXERIL) 10 mg tablet Take 1 tablet by mouth three times daily as needed for muscle spasm. losartan (COZAAR) 100 mg tablet Take 1 tablet by mouth once daily. metFORMIN (GLUCOPHAGE) 1,000 mg tablet Take 1 tablet by mouth twice daily with meals. verapamil SR (CALAN SR, ISOPTIN SR) 120 mg CR tablet Take 1 tablet by mouth once daily. montelukast (SINGULAIR) 10 mg tablet Take 1 tablet by mouth daily at bedtime. fluticasone (FLONASE) 50 mcg/actuation nasal spray Use 2 Sprays in each nostril once daily. Rinse mouth after use. urea (CARMOL) 40 % Apply to affected area as needed. insulin needles, DISPOSABLE, (PEN NEEDLE) 31 gauge x 5/16 Use one needle per dose. 1 per day. Nebulizer 1 Device four times daily as needed. NEBULIZER FOR HOME USE. DX: COPD Exacerbation FAMILY HISTORY Problem Relation Age of Onset Hypertension Mother Coronary Artery Disease Mother Cancer Mother kidney cancer Coronary Artery Disease Maternal Grandmother None Father NOT KNOWN None Sister Cancer Maternal Grandfather stomach Heart Daughter SVT Social History Tobacco Use Smoking status: Every Day Packs/day: 0.50 Years: 33.00 Pack years: 16.50 Types: Cigarettes Start date: 12/01/1979 Last attempt to quit: 11/02/2019 Years since quittin.0 Smokeless tobacco: Never Tobacco comments: down to half a pack daily now Vaping Use Vaping Use: Former Substance Use Topics Alcohol use: No Drug use: No PHYSICAL EXAM BP 172/100 Pulse 88 Temp 36.2 C (97.1 F) (Temporal) Resp 16 Wt 97.1 kg (214 lb) LMP 01/09/2016 (Approximate) SpO2 96% BMI 40.43 kg/m General Appearance: well appearing, in no acute distress, alert Skin: Skin color, texture, turgor normal for age; Eyes: conjunctiva pink and moist, no icterus, sclera white, non-injected Neck: Thyroid normal size and symmetric without palpable nodules, No adenopathy Lymph nodes: No cervical lymphadenopathy and No supraclavicular lymphadenopathy Lungs: Lungs clear to auscultation. No wheezing, rhonchi, rales. Heart: RRR without murmur, gallop, or rubs. No ectopy Abdomen: Abdomen soft, non-tender. Bowel sounds normal. No masses, organomegaly Extremities: No deformities, edema, skin discoloration, clubbing or cyanosis. Good capillary refill. Feet:Shoes and socks removed, normal distal pulses, sensitive to 10 gm monofilament, vibratory perception normal, and calluses to bilateral feet largest to left great toe. Thick dark nails Health maintenance reviewed with patient: ALPHA-1 ANTITRYPSIN DEFICIENCY SCREENING Never done DIABETIC FOOT EXAM due on 10/23/2021 DILATED RETINAL EXAM due on 10/30/2021 URINE ALBUMIN:CREATININE RATIO due on 11/16/2021 LDL CHOLESTEROL due on 11/16/2021 BP CONTROLLED (<130/80) due on 02/13/2022 HBA1C due on 03/11/2022 MAMMOGRAM due on 03/14/2022 INFLUENZA(1) due on 08/01/2022 DTAP,TDAP,TD(1 - Tdap) due on 05/15/2023 HEPATITIS B(1 of 3 - 3-dose series) due on 05/15/2023 PAP TESTING due on 05/15/2023 HPV TESTING due on 05/15/2023 COVID-19 VACCINE(3 - Booster for Pfizer series) due on 05/15/2023 PNEUMOCOCCAL(2 - PCV) due on 05/15/2023 COLORECTAL CANCER SCREENING due on 09/11/2023 ANNUAL PCP TEAM CHRONIC DISEASE VISIT due on 12/06/2023 SPIROMETRY Completed HEPATITIS C SCREENING Completed SHINGRIX VACCINE Completed HIV SCREENING Discontinued DATA REVIEWED: No new labs ASSESSMENT/PLAN: 1. Poorly controlled type 2 diabetes mellitus with peripheral neuropathy (HCC) - ICD9: 250.60, 357.2, ICD10: E11.42, E11.65 (primary diagnosis) uncontrolled Poor adherence to plan of care. Does not follow up regularly and changes medications without notifying office - will restart trulicity, only gave a total of 8 injections 6 months ago so unsure if patient;s recollection of only being out a few weeks is accurate. - follow up in 4 weeks to review lab work and also hopefully increase trulicity. - Blood glucose monitoring on a once a day schedule - BP goal of <130/80 - LDL goal of <100 - HEMOGLOBIN A1C (POC) - 12.2 - ALBUMIN/CREAT RATIO RND UR - CONSULT TO PODIATRY - diabetes structured program 2. Essential hypertension - ICD9: 401.9, ICD10: I10 - poor control - Continue current medication(s) but increasing HCTZ, discussed importance of getting ordered blood work completed as I need an updated kidney function along with electrolytes incase medications need changed - Encouraged dietary sodium restriction/DASH diet - Recommended regular aerobic exercise. - Recommend home blood pressure monitoring, to bring results in on next visit - Goal of BP <130/80 - cbc and cmp 3. Pulmonary emphysema, unspecified emphysema type (HCC) - ICD9: 492.8, ICD10: J43.9 - stable - needs to schedule with pulmonology as previously ordered by them - MONTELUKAST 10 MG TABLET 4. Callus of foot - ICD9: 700, ICD10: L84 - CONSULT TO PODIATRY 5. Hyperlipidemia, unspecified hyperlipidemia type - ICD9: 272.4, ICD10: E78.5 - to be determined upon return of lab results - Continue current medication. - Encouraged following a low fat, low cholesterol diet. - Discussed the benefits of regular aerobic exercise and weight loss. - ATORVASTATIN 40 MG TABLET 6. Need for influenza vaccination - ICD9: V04.81, ICD10: Z23 - INFLUENZA VACCINE QUADRIVALENT 6 MO - 64 YRS IM Prescription instructions reviewed with patient as applicable. Potential red flag symptoms discussed with the patient. Reviewed appropriate action plan to take if red flag symptoms occur. Patient agreeable to treatment plan. Mercedez Vincent APRN.CNP documented in this encounter [facility] 11-07-2022 Miscellaneous Notes Left detailed message on Data [employer]. Orders sent patient needs a routine follow up for diabetes. Thank you Mercedez Vincent APRN.CNP Patient calling asking for Diflucan rx. Patient said she has yeast infection, she has vaginal itching and white vaginal discharge. She had been on antibiotics a month ago. She can not tell me her blood sugar since meter is broken. Pending rx and meter, strips and supplies also. Please advise Patient has been identified by name and date of : Yes Patient phones for refill(s): Requested Prescriptions Pending Prescriptions Disp Refills fluconazole (DIFLUCAN) 150 mg tablet 2 tablet 0 Sig: Take 1 tablet by mouth one time only for 1 dose. Repeat in 3 days as needed. blood sugar diagnostic (ONETOUCH ULTRA TEST) test strip 200 Strip 3 Sig: Test blood sugar(s) 2 times daily. Dx: Type 2 DM - Uncontrolled E11.42 Insulin: No Lancets lancets 100 Each 11 Sig: Test blood sugar(s) 2 times daily. Dx: Type 2 DM - Uncontrolled E11.42 Insulin: No Blood-Glucose Meter (ONETOUCH ULTRA2 METER) monitoring kit 1 Each 0 Si Each as needed for up to 1 day. One Touch Meter Kit Diagnosis: Other DM Code E11.42 testing twice daily Date of last office visit in primary care: 05/15/2022, no future appt scheduled Last 2 Encounter Wt Readings: Date: Wt: 03/01/2022 100.2 kg (221 lb) 12/11/2021 98.4 kg (217 lb) Previous labs/tests for medication: Diabetes: Hemoglobin A1C (%) Date Value 02/13/2021 8.9 11/16/2020 7.8 Hemoglobin A1C (POCT) (%) Date Value 12/11/2021 9.0 Please advise. Thank you. Tegan Nielsen LPN documented in this encounter [facility] 06-17-2022 Evaluation + Plan note Diagnostic Tests PendingHPV Screen, DNA Probe 06/17/22 Future Scheduled TestsMA Mammo Screening Bilateral w/ Buzz 06/17/22 [facility] 05-24-2022 Miscellaneous Notes Patient has been identified by name and date of : Yes Patient phones for refill(s): Pending Prescriptions Disp Refills ATORVASTATIN 40 MG TABLET 90 tablet 0 Sig: TAKE 1 TABLET BY MOUTH ONCE DAILY AT BEDTIME FOR CHOLESTEROL EVANGELISTA: Yes Date of last office visit in primary care: 05/15/22 Last 2 Encounter Wt Readings: Date: Wt: 03/01/2022 100.2 kg (221 lb) 12/11/2021 98.4 kg (217 lb) Previous labs/tests for medication: Cholesterol: HDL Cholesterol (mg/dL) Date Value 11/16/2020 43 LDL Cholesterol (mg/dL) Date Value 11/16/2020 49 ALT (U/L) Date Value 11/01/2019 12 Non HDL Cholesterol (mg/dL) Date Value 11/16/2020 81 Please advise. Thank you. Jazlyn Bach Ma documented in this encounter [facility] 05-15-2022 History of Present illness Narrative This Team Access Model visit is a virtual encounter. It required patient-provider interaction for the medical decision making as documented below. Patient agrees to the visit: Yes Patient Location: [place] CC: Patient presents with: Hypertension HPI Yanelis Riley is a 57 year old female who is contacted today for a virtual visit. This is an established patient of Dr. Princess Madrid MD. Yanelis Riley is a 57 year old female who presents today for Medication follow up which is difficult to treat with not coming to office appointments or getting lab work completed. She lives with her daughter and often doesn't have rides. DIABETES MELLITUS: Ms. Riley denies excessive thirst or increased frequency of urination, chest pain or dyspnea , numbness, tingling or pain in extremities, new or unusual visual symptoms, low sugar/hypoglycemic reactions, weight loss/gain, lightheadedness/dizziness and bowel changes/loose stools. Follows a diabetic diet generally not very much. She is compliant with medication(s) and is tolerating med(s) without any side effects. She reports checking her glucose on a twice a day schedule with sugars in the fasting 160s and before lunch or dinner 220s range. Patient's last HgA1C was Hemoglobin A1C (%) Date Value 02/13/2021 8.9 11/16/2020 7.8 Hemoglobin A1C (POCT) (%) Date Value 12/11/2021 9.0 ) Last Ophthalmology exam was within the past 6 months. Goes to the [facility] in [place]. HTN: Ms. Riley indicates that she is feeling well and denies any symptoms referable to elevated blood pressure. Specifically denies headache, chest pain, palpitations, dyspnea and peripheral edema. Patient denies any side effects of her medication(s) and is compliant with their regimen. She does check BP's away from this office with average BP's in the 180s/70s range. Yanelis denies regular aerobic exercise. She watches her diet for sodium, low fat and low cholesterol generally not very much. Last 3 Encounter BP Readings: Date: BP: 03/01/2022 158/90 12/11/2021 132/70 04/05/2021 138/78' Was not on HCTZ at this time, never got it refilled. Emphysema: Using albuterol inhaler once a day, uses her albuterol nebulizer once a day as well. Uses her BREO inhaler as prescribed. Saw [place] [facility]ology at the hospital 8 months ago which was ordered by cardiology. Per patient breathing tests were completed but she never got the results because she missed the appointment and never rescheduled. No increase in cough and wheezing from her baseline. Has had yellow nasal drainage for the past two weeks and has had sinus pressure and tenderness with it. Denies a fever. REVIEW OF SYSTEMS General: no fevers, no chills, no night sweats, no recurrent infections, no change in appetite, no change in energy and no significant changes in weight Respiratory: See HPI Cardiovascular: no chest pain, no chest pressure, no palpitations and no swelling Endocrine: no fatigue, no weight gain, no weight loss, no cold intolerance, no heat intolerance, no polyuria, no polyphagia and no polydipsia Neurologic: No headache, weakness, numbness, tingling, dizziness, syncope. 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) 12/22/2015 Pulmonary emphysema (HCC) 12/22/2015 Single current episode of major depressive disorder 01/22/2016 PAST SURGICAL HISTORY Procedure Laterality Date BX OF BREAST; INCISIONAL Left 04/05/2021 COLONOSCOPY FLX DX W/COLLJ SPEC WHEN PFRMD 09/11/2020 Colonoscopy ESOPHAGOGASTRODUODENOSCOPY TRANSORAL DIAGNOSTIC 09/11/2020 EGD LAPAROSCOPY DIAGNOSTIC irregular menses LIG/TRNSXJ FLP TUBE ABDL/VAG APPR UNI/BI 1987 Tubal ligation PAST SURGICAL HISTORY OF 01/2012 back surgery PAST SURGICAL HISTORY OF 11/03/2019 incision and drainage of perianal abscess ALLERGIES Demerol [Meperidine] MEDICATIONS fluticasone-vilanterol (BREO ELLIPTA) 200-25 mcg/dose inhaler INHALE 1 PUFF BY MOUTH ONCE DAILY DIRECTED. DO NOT CLICK OPEN UNTIL READY FOR DOSE. albuterol HFA (VENTOLIN HFA) 90 mcg/actuation inhaler Inhale 2 Puffs as instructed every 4 hours as needed for wheezing/shortness of breath. albuterol (PROVENTIL) 2.5 mg /3 mL (0.083 %) nebulizer solution Use 3 mL via nebulizer every 6 hours as needed. 1 vial contains 3 ml. sertraline (ZOLOFT) 100 mg tablet Take 1 tablet by mouth once daily. glimepiride (AMARYL) 4 mg tablet TAKE 1 TABLET BY MOUTH TWICE DAILY WITH MEALS cyclobenzaprine (FLEXERIL) 10 mg tablet Take 1 tablet by mouth three times daily as needed for muscle spasm. atorvastatin (LIPITOR) 40 mg tablet TAKE 1 TABLET BY MOUTH ONCE DAILY AT BEDTIME FOR CHOLESTEROL losartan (COZAAR) 100 mg tablet Take 1 tablet by mouth once daily. metFORMIN (GLUCOPHAGE) 1,000 mg tablet Take 1 tablet by mouth twice daily with meals. verapamil SR (CALAN SR, ISOPTIN SR) 120 mg CR tablet Take 1 tablet by mouth once daily. montelukast (SINGULAIR) 10 mg tablet Take 1 tablet by mouth daily at bedtime. urea (CARMOL) 40 % Apply to affected area as needed. Lancets lancets Test blood sugar(s) 2 times daily. Dx: Type 2 DM - Uncontrolled E11.42 Insulin: No Nebulizer 1 Device four times daily as needed. NEBULIZER FOR HOME USE. DX: COPD Exacerbation hydroCHLOROthiazide (HYDRODIURIL, ESIDRIX) 12.5 mg tablet Take 1 tablet by mouth once daily. dulaglutide (TRULICITY) 3 mg/0.5 mL pen injector Inject 3 mg subcutaneously one time a week. amoxicillin-clavulanic acid (AUGMENTIN) 875-125 mg per tablet Take 1 tablet by mouth twice daily for 10 days. fluticasone (FLONASE) 50 mcg/actuation nasal spray Use 2 Sprays in each nostril once daily. Rinse mouth after use. insulin needles, DISPOSABLE, (PEN NEEDLE) 31 gauge x 5/16 Use one needle per dose. 1 per day. blood sugar diagnostic (ONETOUCH ULTRA TEST) test strip Test blood sugar(s) 2 times daily. Dx: Type 2 DM - Uncontrolled E11.42 Insulin: No FAMILY HISTORY Problem Relation Age of Onset Hypertension Mother Coronary Artery Disease Mother Cancer Mother kidney cancer Coronary Artery Disease Maternal Grandmother None Father NOT KNOWN None Sister Cancer Maternal Grandfather stomach Heart Daughter SVT Social History Tobacco Use Smoking status: Current Every Day Smoker Packs/day: 0.50 Years: 33.00 Pack years: 16.50 Types: Cigarettes Start date: 12/01/1979 Last attempt to quit: 11/02/2019 Years since quittin.5 Smokeless tobacco: Never Used Tobacco comment: down to half a pack daily now Vaping Use Vaping Use: Former Substance Use Topics Alcohol use: No Drug use: No EXAM: Virtual visit completed using video, limited exam completed. GENERAL: alert and appropriate, in no distress, well-hydrated, well nourished and happy, smiling, interactive EYES: no injection and visual acuity is grossly normal NOSE: external nose normal without rhinorrhea and sinus tenderness reported when patient palpated her right maxillary sinus RESPIRATORY: breathing non-labored CHEST: equal chest rise with normal respiratory effort NEUROLOGIC: no obvious deficit DATA REVIEWED: No new labs DIABETIC FOOT EXAM due on 10/23/2021 DILATED RETINAL EXAM due on 10/30/2021 URINE ALBUMIN:CREATININE RATIO due on 11/16/2021 LDL CHOLESTEROL due on 11/16/2021 BP CONTROLLED (<130/80) due on 02/13/2022 HBA1C due on 03/11/2022 MAMMOGRAM due on 03/14/2022 DTAP,TDAP,TD(1 - Tdap) due on 05/15/2023 HEPATITIS B(1 of 3 - Risk 3-dose series) due on 05/15/2023 PAP TESTING due on 05/15/2023 HPV TESTING due on 05/15/2023 COVID-19 VACCINE(3 - Booster for Pfizer series) due on 05/15/2023 PNEUMOCOCCAL(2 - PCV) due on 05/15/2023 INFLUENZA(Season Ended) due on 08/01/2022 ANNUAL PCP TEAM CHRONIC DISEASE VISIT due on 12/11/2022 COLORECTAL CANCER SCREENING due on 09/11/2023 SPIROMETRY Completed HEPATITIS C SCREENING Completed SHINGRIX VACCINE Completed HIV SCREENING Discontinued ASSESSMENT/PLAN: 1. Essential hypertension - ICD9: 401.9, ICD10: I10 (primary diagnosis) - poor control - noncompliance - Continue current medication(s) - restarting HCTZ as previously prescribed - Encouraged dietary sodium restriction/DASH diet - Recommended regular aerobic exercise. - Recommend home blood pressure monitoring, to bring results in on next visit - Goal of BP <130/80 - HYDROCHLOROTHIAZIDE 12.5 MG TABLET - COMP METABOLIC PANEL - CBC + DIFF - Nurse BP check in 2 weeks and in office visit in 6 weeks - go to ER for continuing elevated blood pressure, chest pain, shortness of breath, palpitations, severe headache, or any other urgent concern 2. Poorly controlled type 2 diabetes mellitus with peripheral neuropathy (HCC) - ICD9: 250.60, 357.2, ICD10: E11.42, E11.65 uncontrolled Poor adherence to plan of care. - Continue current medications - Blood glucose monitoring on a twice a day schedule - BP goal of <130/80 - LDL goal of <100 - TRULICITY as ordered, start with 0.75mg once weekly - HGB A1C - ALBUMIN/CREAT RATIO RND UR - COMP METABOLIC PANEL - follow up in 4-6 weeks to evaluate trulicity 3. Pulmonary emphysema, unspecified emphysema type (HCC) - ICD9: 492.8, ICD10: J43.9 - reschedule with pulmonology to review test results. - BREO ELLIPTA 200 MCG-25 MCG/DOSE POWDER FOR INHALATION - ALBUTEROL SULFATE HFA 90 MCG/ACTUATION AEROSOL INHALER - ALBUTEROL SULFATE 2.5 MG/3 ML (0.083 %) SOLUTION FOR NEBULIZATION 4. Hyperlipidemia, unspecified hyperlipidemia type - ICD9: 272.4, ICD10: E78.5 - to be determined upon return of lab results - Continue current medication. - Encouraged following a low fat, low cholesterol diet. - Discussed the benefits of regular aerobic exercise and weight loss. - COMP METABOLIC PANEL - LIPID PANEL BASIC Prescription instructions reviewed with patient as applicable. Potential red flag symptoms discussed with the patient. Reviewed appropriate action plan to take if red flag symptoms occur. Patient agreeable to treatment plan. During this patient visit I have spent approximately 25 minutes in counseling regarding treatment options, medications, test results and coordinating care. Mercedez Vincent APRN.CNP documented in this encounter [facility] 05-10-2022 Miscellaneous Notes Patient has been identified by name and date of : Yes Patient phones for refill(s): Pending Prescriptions Disp Refills SERTRALINE 100 MG TABLET 90 tablet 0 Sig: Take 1 tablet by mouth once daily. EVANGELISTA: No GLIMEPIRIDE 4 MG TABLET 180 tablet 0 Sig: TAKE 1 TABLET BY MOUTH TWICE DAILY WITH MEALS EVANGELISTA: No CYCLOBENZAPRINE 10 MG TABLET 30 tablet 0 Sig: Take 1 tablet by mouth three times daily as needed for muscle spasm. EVANGELISTA: No Date of last office visit in primary care: 12/11/2021, has appt 05/15/2022 Last 2 Encounter Wt Readings: Date: Wt: 03/01/2022 100.2 kg (221 lb) 12/11/2021 98.4 kg (217 lb) Previous labs/tests for medication: Diabetes: Hemoglobin A1C (%) Date Value 02/13/2021 8.9 11/16/2020 7.8 Hemoglobin A1C (POCT) (%) Date Value 12/11/2021 9.0 Please advise. Thank you. Tegan Nielsen LPN documented in this encounter [facility] 03-12-2022 Miscellaneous Notes May have short term supply to last till March appointment with PCP The following approved medication requests have been transmitted electronically. Signed Prescriptions Disp Refills cyclobenzaprine (FLEXERIL) 10 mg tablet 30 tablet 0 Sig: Take 1 tablet by mouth three times daily as needed for muscle spasm. EVANGELISTA: No Authorizing Provider: SIMON MOODY MD Patient calling asking for refill on muscle relaxer having lower back issues. She was in the ER last week and has none left. Pending rx to file if wanted. Please notify patient when rx is done. Please advise Patient has been identified by name and date of : Yes Patient phones for refill(s): Pending Prescriptions Disp Refills CYCLOBENZAPRINE 10 MG TABLET 90 tablet 2 Sig: Take 1 tablet by mouth three times daily as needed for muscle spasm. EVANGELISTA: No Date of last office visit in primary care: 12/11/2021, has appt 03/21/2022 Last 2 Encounter Wt Readings: Date: Wt: 03/01/2022 100.2 kg (221 lb) 12/11/2021 98.4 kg (217 lb) Previous labs/tests for medication: Not applicable Please advise. Thank you. Tegan Nielsen LPN documented in this encounter [facility] 03-04-2022 Miscellaneous Notes Patient has been identified by name and date of : Yes Patient phones for refill(s): Pending Prescriptions Disp Refills SERTRALINE 100 MG TABLET 90 tablet 0 Sig: Take 1 tablet by mouth once daily EVANGELISTA: Yes GLIMEPIRIDE 4 MG TABLET 180 tablet 0 Sig: TAKE 1 TABLET BY MOUTH TWICE DAILY WITH MEALS EVANGELISTA: No Date of last office visit with pcp: 12-11-21. 03-21-22 Last 2 Encounter Wt Readings: Date: Wt: 03/01/2022 100.2 kg (221 lb) 12/11/2021 98.4 kg (217 lb) Previous labs/tests for medication: Diabetes: Hemoglobin A1C (%) Date Value 02/13/2021 8.9 11/16/2020 7.8 Hemoglobin A1C (POCT) (%) Date Value 12/11/2021 9.0 Blood Pressure: BUN (mg/dL) Date Value 11/16/2020 11 Sodium (mmol/L) Date Value 11/16/2020 140 Last 1 Encounter BP Readings: Date: BP: 03/01/2022 158/90 Liver Function: ALT (U/L) Date Value 11/01/2019 12 AST (U/L) Date Value 11/01/2019 12 Please advise. Thank you. Anitha Pablo RN documented in this encounter [facility] 03-01-2022 Miscellaneous Notes Noted. Thank you Mercedez Vincent APRN.CNP Protocol recommended: ER now for evaluation. Patient state she has someone to drive her now. Reason for Disposition Patient sounds very sick or weak to the triager Answer Assessment - Initial Assessment Questions 1. ONSET: Last night after travelling in a car long hours yesterday. 2. LOCATION: Lower back, radiating down left leg, pain stops at ankle 3. SEVERITY: 11 out of 10 4. PATTERN: constant 5. RADIATION: yes-left leg 6. CAUSE: As above. 7. BACK OVERUSE: no 8. MEDICATIONS: Has been taking Ibuprofen every 4 hours and it is not helping 9. NEUROLOGIC SYMPTOMS:Denies weakness, numbness, or problems with bowel/bladder control 10. OTHER SYMPTOMS:Denies fever, abdominal pain, burning with urination, or blood in urine 11. : n/a Protocols used: BACK [id number] documented in this encounter [facility] 03-01-2022 History of Present illness Narrative patient came in with severe back pain 10/10 could not sit or stand comfortably. patient visibly in distress. Wanted pain relief at this time patient was sent to the ER to get adequate pain control and testing done. patient was okay with this care plan. documented in this encounter [facility] documented as of this encounter (statuses as of 02/26/2022) [facility] History of Past illness Narrative* Problem Noted Date Resolved Date Obesity, Class II, BMI 35-39.9 11/03/2019 0 03/28/2021 Obesity due to excess calories 10/17/2016 0 03/28/2021 Tobacco abuse 10/17/2016 12/11/2021 documented as of this encounter (statuses as of 03/01/2022) [facility] History of Past illness Narrative* Problem Noted Date Resolved Date Obesity, Class II, BMI 35-39.9 11/03/2019 0 03/28/2021 Obesity due to excess calories 10/17/2016 0 03/28/2021 Tobacco abuse 10/17/2016 12/11/2021 documented as of this encounter (statuses as of 03/01/2022) [facility] History of Past illness Narrative* Problem Noted Date Resolved Date Obesity, Class II, BMI 35-39.9 11/03/2019 0 03/28/2021 Obesity due to excess calories 10/17/2016 0 03/28/2021 Tobacco abuse 10/17/2016 12/11/2021 documented as of this encounter (statuses as of 03/04/2022) [facility] History of Past illness Narrative* Problem Noted Date Resolved Date Obesity, Class II, BMI 35-39.9 11/03/2019 0 03/28/2021 Obesity due to excess calories 10/17/2016 0 03/28/2021 Tobacco abuse 10/17/2016 12/11/2021 documented as of this encounter (statuses as of 03/08/2022) [facility] History of Past illness Narrative* Problem Noted Date Resolved Date Obesity, Class II, BMI 35-39.9 11/03/2019 0 03/28/2021 Obesity due to excess calories 10/17/2016 0 03/28/2021 Tobacco abuse 10/17/2016 12/11/2021 documented as of this encounter (statuses as of 03/12/2022) [facility] History of Past illness Narrative* Problem Noted Date Resolved Date Obesity, Class II, BMI 35-39.9 11/03/2019 0 03/28/2021 Obesity due to excess calories 10/17/2016 0 03/28/2021 Tobacco abuse 10/17/2016 12/11/2021 documented as of this encounter (statuses as of 05/06/2022) [facility] History of Past illness Narrative* Problem Noted Date Resolved Date Obesity, Class II, BMI 35-39.9 11/03/2019 0 03/28/2021 Obesity due to excess calories 10/17/2016 0 03/28/2021 Tobacco abuse 10/17/2016 12/11/2021 documented as of this encounter (statuses as of 05/10/2022) [facility] History of Past illness Narrative* Problem Noted Date Resolved Date Obesity, Class II, BMI 35-39.9 11/03/2019 0 03/28/2021 Obesity due to excess calories 10/17/2016 0 03/28/2021 Tobacco abuse 10/17/2016 12/11/2021 documented as of this encounter (statuses as of 05/15/2022) [address]04-[address] History of Past illness Narrative* Problem Noted Date Resolved Date Obesity, Class II, BMI 35-39.9 11/03/2019 0 03/28/2021 Obesity due to excess calories 10/17/2016 0 03/28/2021 Tobacco abuse 10/17/2016 12/11/2021 documented as of this encounter (statuses as of 05/24/2022) [facility] History of Past illness Narrative* Problem Noted Date Resolved Date Obesity, Class II, BMI 35-39.9 11/03/2019 0 03/28/2021 Obesity due to excess calories 10/17/2016 0 03/28/2021 Tobacco abuse 10/17/2016 12/11/2021 documented as of this encounter (statuses as of 11/07/2022) [facility] History of Past illness Narrative* Problem Noted Date Resolved Date Obesity, Class II, BMI 35-39.9 11/03/2019 0 03/28/2021 Obesity due to excess calories 10/17/2016 0 03/28/2021 Tobacco abuse 10/17/2016 12/11/2021 documented as of this encounter (statuses as of 12/07/2022) [facility] History of Past illness Narrative* Problem Noted Date Resolved Date Obesity, Class II, BMI 35-39.9 11/03/2019 0 03/28/2021 Obesity due to excess calories 10/17/2016 0 03/28/2021 Tobacco abuse 10/17/2016 12/11/2021 documented as of this encounter (statuses as of 12/11/2022) [facility] History of Past illness Narrative* Problem Noted Date Resolved Date Obesity, Class II, BMI 35-39.9 11/03/2019 0 03/28/2021 Obesity due to excess calories 10/17/2016 0 03/28/2021 Tobacco abuse 10/17/2016 12/11/2021 documented as of this encounter (statuses as of 12/11/2022) [facility] History of Past illness Narrative* Problem Noted Date Resolved Date Obesity, Class II, BMI 35-39.9 11/03/2019 0 03/28/2021 Obesity due to excess calories 10/17/2016 0 03/28/2021 Tobacco abuse 10/17/2016 12/11/2021 documented as of this encounter (statuses as of 12/12/2022) [address]-2019 History of Past illness Narrative* Problem Noted Date Resolved Date Obesity, Class II, BMI 35-39.9 11/03/2019 0 03/28/2021 Obesity due to excess calories 10/17/2016 0 03/28/2021 Tobacco abuse 10/17/2016 12/11/2021 documented as of this encounter (statuses as of 12/26/2022) [facility] History of Past illness Narrative* Problem Noted Date Resolved Date Obesity, Class II, BMI 35-39.9 11/03/2019 0 03/28/2021 Obesity due to excess calories 10/17/2016 0 03/28/2021 Tobacco abuse 10/17/2016 12/11/2021 documented as of this encounter (statuses as of 12/27/2022) [address]-2019 History of Past illness Narrative* Problem Noted Date Resolved Date Obesity, Class II, BMI 35-39.9 11/03/2019 0 03/28/2021 Obesity due to excess calories 10/17/2016 0 03/28/2021 Tobacco abuse 10/17/2016 12/11/2021 documented as of this encounter (statuses as of 12/27/2022) [facility] History of Past illness Narrative* Problem Noted Date Resolved Date Obesity, Class II, BMI 35-39.9 11/03/2019 0 03/28/2021 Obesity due to excess calories 10/17/2016 0 03/28/2021 Tobacco abuse 10/17/2016 12/11/2021 documented as of this encounter (statuses as of 01/03/2023) [facility] History of Past illness Narrative* Problem Noted Date Resolved Date Obesity, Class II, BMI 35-39.9 11/03/2019 0 03/28/2021 Obesity due to excess calories 10/17/2016 0 03/28/2021 Tobacco abuse 10/17/2016 12/11/2021 documented as of this encounter (statuses as of 01/09/2023) [place] [address]-04-2019 History of Past illness Narrative* Problem Noted Date Resolved Date Obesity, Class II, BMI 35-39.9 11/03/2019 0 03/28/2021 Obesity due to excess calories 10/17/2016 0 03/28/2021 Tobacco abuse 10/17/2016 12/11/2021 documented as of this encounter (statuses as of 01/17/2023) [facility] History of Past illness Narrative* Problem Noted Date Resolved Date Obesity, Class II, BMI 35-39.9 11/03/2019 0 03/28/2021 Obesity due to excess calories 10/17/2016 0 03/28/2021 Tobacco abuse 10/17/2016 12/11/2021 documented as of this encounter (statuses as of 04/09/2023) [facility] History of Past illness Narrative* Problem Noted Date Resolved Date Obesity, Class II, BMI 35-39.9 11/03/2019 0 03/28/2021 Obesity due to excess calories 10/17/2016 0 03/28/2021 Tobacco abuse 10/17/2016 12/11/2021 documented as of this encounter (statuses as of 04/09/2023) [facility] History of Past illness Narrative* Problem Noted Date Resolved Date Obesity, Class II, BMI 35-39.9 11/03/2019 0 03/28/2021 Obesity due to excess calories 10/17/2016 0 03/28/2021 Tobacco abuse 10/17/2016 12/11/2021 documented as of this encounter (statuses as of 04/10/2023) [facility]12-[facility]2019 History of Past illness Narrative* Problem Noted Date Resolved Date Obesity, Class II, BMI 35-39.9 11/03/2019 0 03/28/2021 Obesity due to excess calories 10/17/2016 0 03/28/2021 Tobacco abuse 10/17/2016 12/11/2021 documented as of this encounter (statuses as of 05/14/2023) [facility]2019 History of Past illness Narrative* Problem Noted Date Resolved Date Obesity, Class II, BMI 35-39.9 11/03/2019 0 03/28/2021 Obesity due to excess calories 10/17/2016 0 03/28/2021 Tobacco abuse 10/17/2016 12/11/2021 documented as of this encounter (statuses as of 05/23/2023) [facility]2019 History of Past illness Narrative* Problem Noted Date Diagnosed Date Resolved Date Obesity, Class II, BMI 35-39.9 11/03/2019 03/28/2021 Obesity due to excess calories 10/17/2016 03/28/2021 Tobacco abuse 10/17/2016 12/11/2021 documented as of this encounter (statuses as of 08/05/2023) [facility] History of Past illness Narrative* Problem Noted Date Diagnosed Date Resolved Date Obesity, Class II, BMI 35-39.9 11/03/2019 03/28/2021 Obesity due to excess calories 10/17/2016 03/28/2021 Tobacco abuse 10/17/2016 12/11/2021 documented as of this encounter (statuses as of 08/23/2023) [facility] History of Past illness Narrative* Problem Noted Date Diagnosed Date Resolved Date Obesity, Class II, BMI 35-39.9 11/03/2019 03/28/2021 Obesity due to excess calories 10/17/2016 03/28/2021 Tobacco abuse 10/17/2016 12/11/2021 documented as of this encounter (statuses as of 10/06/2023) [facility] Diagnosis Acute midline low back pain with left-sided sciatica- Primary [facility] Diagnosis Poorly controlled type 2 diabetes mellitus with peripheral neuropathy (HCC) Type II or unspecified type diabetes mellitus with neurological manifestations, not stated as uncontrolled [facility] Diagnosis Poorly controlled type 2 diabetes mellitus with peripheral neuropathy (HCC) Type II or unspecified type diabetes mellitus with neurological manifestations, not stated as uncontrolled [facility] Diagnosis Chronic midline low back pain without sciatica [facility] Diagnosis Encounter for screening mammogram for breast cancer [facility] Diagnosis Poorly controlled type 2 diabetes mellitus with peripheral neuropathy (HCC) Type II or unspecified type diabetes mellitus with neurological manifestations, not stated as uncontrolled Chronic midline low back pain without sciatica [facility] Diagnosis Essential hypertension- Primary Unspecified essential hypertension Poorly controlled type 2 diabetes mellitus with peripheral neuropathy (HCC) Type II or unspecified type diabetes mellitus with neurological manifestations, not stated as uncontrolled Pulmonary emphysema, unspecified emphysema type (HCC) Hyperlipidemia, unspecified hyperlipidemia type [facility] Diagnosis Hyperlipidemia, unspecified hyperlipidemia type [facility] Diagnosis Poorly controlled type 2 diabetes mellitus with peripheral neuropathy (HCC) Type II or unspecified type diabetes mellitus with neurological manifestations, not stated as uncontrolled [facility] Diagnosis Poorly controlled type 2 diabetes mellitus with peripheral neuropathy (HCC)- Primary Type II or unspecified type diabetes mellitus with neurological manifestations, not stated as uncontrolled Essential hypertension Unspecified essential hypertension Pulmonary emphysema, unspecified emphysema type (HCC) Callus of foot Corns and callosities Hyperlipidemia, unspecified hyperlipidemia type Need for influenza vaccination Need for prophylactic vaccination and inoculation against influenza [facility] Diagnosis Poorly controlled type 2 diabetes mellitus with peripheral neuropathy (HCC) Type II or unspecified type diabetes mellitus with neurological manifestations, not stated as uncontrolled [facility] Diagnosis Poorly controlled type 2 diabetes mellitus with peripheral neuropathy (HCC)- Primary Type II or unspecified type diabetes mellitus with neurological manifestations, not stated as uncontrolled [facility] Diagnosis Poorly controlled type 2 diabetes mellitus with peripheral neuropathy (HCC)- Primary Type II or unspecified type diabetes mellitus with neurological manifestations, not stated as uncontrolled [facility] Diagnosis Poorly controlled type 2 diabetes mellitus with peripheral neuropathy (HCC) Type II or unspecified type diabetes mellitus with neurological manifestations, not stated as uncontrolled Callus of foot Corns and callosities [facility] Diagnosis Poorly controlled type 2 diabetes mellitus with peripheral neuropathy (HCC)- Primary Type II or unspecified type diabetes mellitus with neurological manifestations, not stated as uncontrolled Medication management Encounter for long-term (current) use of other medications [facility] Diagnosis Essential hypertension- Primary Unspecified essential hypertension Poorly controlled type 2 diabetes mellitus with peripheral neuropathy (HCC) Type II or unspecified type diabetes mellitus with neurological manifestations, not stated as uncontrolled [facility] Diagnosis Essential hypertension- Primary Unspecified essential hypertension Nicotine use disorder, F17.2 Tobacco use disorder Acute non-recurrent sinusitis, unspecified location documented in this encounter [facility] note* Diagnosis Chronic midline low back pain without sciatica Pulmonary emphysema, unspecified emphysema type (HCC) documented in this encounter [facility] note* Diagnosis Poorly controlled type 2 diabetes mellitus with peripheral neuropathy (HCC) Type II or unspecified type diabetes mellitus with neurological manifestations, not stated as uncontrolled Pulmonary emphysema, unspecified emphysema type (HCC) documented in this encounter [facility] note* Diagnosis Pulmonary emphysema, unspecified emphysema type (HCC) documented in this encounter [facility] note* Diagnosis Poorly controlled type 2 diabetes mellitus with peripheral neuropathy (HCC)- Primary Type II or unspecified type diabetes mellitus with neurological manifestations, not stated as uncontrolled Essential hypertension Unspecified essential hypertension Hyperlipidemia, unspecified hyperlipidemia type Pulmonary emphysema, unspecified emphysema type (HCC) Acute non-recurrent sinusitis, unspecified location documented in this encounter [facility] note* Diagnosis Poorly controlled type 2 diabetes mellitus with peripheral neuropathy (HCC) Type II or unspecified type diabetes mellitus with neurological manifestations, not stated as uncontrolled documented in this encounter [facility] note* Diagnosis Encounter for screening mammogram for breast cancer documented in this encounter [facility] course Narrative No data available for this section [facility] Discharge instructions No data available for this section [facility] Progress note No data available for this section [facility] Reason for referral (narrative)* Diagnostic Procedure Only (Routine) - Pending Review Specialty Diagnoses / Procedures Referred By Contac t Referred To Contact [facility] Diagnoses Encounter for screening mammogram for breast cancer Procedures ANTONIO SCREENING SCREENING MAMMOGRAPHY BI 2-VIEW BREAST INC Princess Ren MD [address] [place] [address] [facility] [address] [place] [address] Referral ID Status Reason Start Date Expiration Date Visits Requested Visits Authorized [id number] Pending Review Auto-Generat ed Referral 05/01/2022 05/31/2023 1 1 [facility] for referral (narrative)* Diagnostic Procedure Only (Routine) - Closed Specialty Diagnoses / Procedures Referred By Myra isaacs Referred To Contact [facility] Diagnoses Encounter for screening mammogram for breast cancer Procedures ANTONIO SCREENING SCREENING MAMMOGRAPHY BI 2-VIEW BREAST INC Princess Ren MD [address] [place] [address] [facility] [address] [place] [address] Referral ID Status Reason Start Date Expiration Date V isits Requested Visits Authorized [id number] Closed Auto-Generate d Referral 05/01/2022 05/31/2023 1 1 [facility] for visit Narrative* Diagnostic Procedure Only (Routine) - Closed Specialty Diagnoses / Procedures Referred By Myra isaacs Referred To Contact [facility] Diagnoses Encounter for screening mammogram for breast cancer Procedures ANTONIO SCREENING SCREENING MAMMOGRAPHY BI 2-VIEW [employer] Princess Ren MD [address] [place] [address] [facility] [address] [place] [address] Referral ID Status Reason Start Date Expiration Date V isits Requested Visits Authorized [id number] Closed Auto-Generate d Referral 05/01/2022 05/31/2023 1 1 [facility] Summary Purpose Family History No Family History Records FoundNo Family History Records FoundNo Family History Records FoundNo Family History Records FoundNo Family History Records FoundNo Family History Records Found Advance Directives No Advanced Directives Records FoundDocuments on File Type Date Recorded Patient Driver Merchandiser Expl anation Advance Directive(s) 09/11/2020 10:27 AM Advance Directive(s) 09/01/2020 8:09 AM Advance Directive(s) 11/03/2019 12:20 AM Documents on File Type Date Recorded Patient Driver Merchandiser Expl anation Advance Directive(s) 09/11/2020 10:27 AM Advance Directive(s) 09/01/2020 8:09 AM Advance Directive(s) 11/03/2019 12:20 AM Hospital Course Note HNO ID: [id number] Author: Breanne Roman Service: General Surgery Author Type: Nurse Practitioner Type: Discharge Summary Filed: 11/07/2019 3:24 PM Note Text: Attestation signed by Ludin Dhillon at 11/08/2019 12:01 PM I saw and evaluated the patient. Discussed with the STEAM PRESS OPERATOR and agree with STEAM PRESS OPERATOR's findings and plan as documented in the STEAM PRESS OPERATOR's note. Ludin Dhillon MD DISCHARGE SUMMARY PATIENT NAME: Yanelis Riley Code Status: Not on file Highest Readmission Risk Score: 31 The 30 day readmissions risk score is derived from an internally validated risk model which evaluates patient level characteristics, utilization history, medication orders and lab results up until the day of discharge. Patients with a score of 40 or above are considered highest risk for readmission. Specific patient level drivers will be liste (more content not included)... Reason for Referral Specialty Diagnoses / Procedures Referred By Contac t Referred To Contact Nutrition Diagnoses Poorly controlled type 2 diabetes mellitus with peripheral neuropathy (HCC) Procedures CONSULT TO NUTRITION THERAPY OFFICE/OUTPATIENT [facility] 60-74 MINUTES Princess Madrid MD [address] [place] [address] Referral ID Status Reason Start Date Expiration Date Visits Requested Visits Authorized [id number] Authorized PCP Requested Referral 12/11/2022 12/11/2023 1 1 Specialty Diagnoses / Procedures Referred By Myra t Referred To Contact Diagnoses Poorly controlled type 2 diabetes mellitus with peripheral neuropathy (HCC) Procedures CONSULT TO DIABETES EDUCATION OFFICE/OUTPATIENT [facility] 60-74 MINUTES Mercedez Vincent APRN.HOOP MAKER [address] [place] [address] [facility] [address] [place] [address] Referral ID Status Reason Start Date Expiration Date Visits Requested Visits Authorized [id number] Authorized PCP Requested Referral 12/06/2022 12/06/2023 1 1 Specialty Diagnoses / Procedures Referred By Myra t Referred To Contact Podiatry Diagnoses Poorly controlled type 2 diabetes mellitus with peripheral neuropathy (HCC) Callus of foot Procedures CONSULT TO PODIATRY OFFICE/OUTPATIENT NEW HIGH MDM 60-74 MINUTES Mercedez Vincent APRN.HOOP MAKER [address] [place] [address] Referral ID Status Reason Start Date Expiration Date Visits Requested Visits Authorized [id number] Authorized PCP Requested Referral 12/06/2022 12/06/2023 1 1 Additional Source Comments INFORMATION SOURCE (unrecogn ized section and content) DATE CREATED AUTHOR AUTHOR'S ORGANIZ ATION 11/12/2019 [facility] DATE CREATED AUTHOR AUTHOR'S ORGANIZ ATION 12/06/2019 [facility] DATE CREATED AUTHOR AUTHOR'S ORGANIZ ATION 09/14/2020 [facility] DATE CREATED AUTHOR AUTHOR'S ORGANIZ ATION 07/02/2022 [facility] DATE CREATED AUTHOR AUTHOR'S ORGANIZ ATION 10/30/2023 [facility] Source Comments (unrecognize d section and content) In the event this informatio n is protected by the Federal Confidentiality of Alcohol and Drug Abuse Patient Records regulations: The Federal rules restrict any use of the information to criminally investigate or prosecute any alcohol or drug abuse patient.[facility] the event this information is protected by the Federal Confidentiality of Alcohol and Drug Abuse Patient Records regulations: The Federal rules restrict any use of the information to criminally investigate or prosecute any alcohol or drug abuse patient.[facility] the event this information is protected by the Federal Confidentiality of Alcohol and Drug Abuse Patient Records regulations: The Federal rules restrict any use of the information to criminally investigate or prosecute any alcohol or drug abuse patient.[facility] the event this information is protected by the Federal Confidentiality of Alcohol and Drug Abuse Patient Records regulations: The Federal rules restrict any use of the information to criminally investigate or prosecute any alcohol or drug abuse patient.[facility] the event this information is protected by the Federal Confidentiality of Alcohol and Drug Abuse Patient Records regulations: The Federal rules restrict any use of the information to criminally investigate or prosecute any alcohol or drug abuse patient.[facility] the event this information is protected by the Federal Confidentiality of Alcohol and Drug Abuse Patient Records regulations: The Federal rules restrict any use of the information to criminally investigate or prosecute any alcohol or drug abuse patient.[facility] the event this information is protected by the Federal Confidentiality of Alcohol and Drug Abuse Patient Records regulations: The Federal rules restrict any use of the information to criminally investigate or prosecute any alcohol or drug abuse patient.[facility] the event this information is protected by the Federal Confidentiality of Alcohol and Drug Abuse Patient Records regulations: The Federal rules restrict any use of the information to criminally investigate or prosecute any alcohol or drug abuse patient.[facility] the event this information is protected by the Federal Confidentiality of Alcohol and Drug Abuse Patient Records regulations: The Federal rules restrict any use of the information to criminally investigate or prosecute any alcohol or drug abuse patient.[facility] the event this information is protected by the Federal Confidentiality of Alcohol and Drug Abuse Patient Records regulations: The Federal rules restrict any use of the information to criminally investigate or prosecute any alcohol or drug abuse patient.[facility] the event this information is protected by the Federal Confidentiality of Alcohol and Drug Abuse Patient Records regulations: The Federal rules restrict any use of the information to criminally investigate or prosecute any alcohol or drug abuse patient.[facility] the event this information is protected by the Federal Confidentiality of Alcohol and Drug Abuse Patient Records regulations: The Federal rules restrict any use of the information to criminally investigate or prosecute any alcohol or drug abuse patient.[facility] the event this information is protected by the Federal Confidentiality of Alcohol and Drug Abuse Patient Records regulations: The Federal rules restrict any use of the information to criminally investigate or prosecute any alcohol or drug abuse patient.[facility] the event this information is protected by the Federal Confidentiality of Alcohol and Drug Abuse Patient Records regulations: The Federal rules restrict any use of the information to criminally investigate or prosecute any alcohol or drug abuse patient.[facility] the event this information is protected by the Federal Confidentiality of Alcohol and Drug Abuse Patient Records regulations: The Federal rules restrict any use of the information to criminally investigate or prosecute any alcohol or drug abuse patient.[facility] the event this information is protected by the Federal Confidentiality of Alcohol and Drug Abuse Patient Records regulations: The Federal rules restrict any use of the information to criminally investigate or prosecute any alcohol or drug abuse patient.[facility] the event this information is protected by the Federal Confidentiality of Alcohol and Drug Abuse Patient Records regulations: The Federal rules restrict any use of the information to criminally investigate or prosecute any alcohol or drug abuse patient.[facility] the event this information is protected by the Federal Confidentiality of Alcohol and Drug Abuse Patient Records regulations: The Federal rules restrict any use of the information to criminally investigate or prosecute any alcohol or drug abuse patient.[facility] the event this information is protected by the Federal Confidentiality of Alcohol and Drug Abuse Patient Records regulations: The Federal rules restrict any use of the information to criminally investigate or prosecute any alcohol or drug abuse patient.[facility] the event this information is protected by the Federal Confidentiality of Alcohol and Drug Abuse Patient Records regulations: The Federal rules restrict any use of the information to criminally investigate or prosecute any alcohol or drug abuse patient.[facility] HospitalIn the event this information is protected by the Federal Confidentiality of Alcohol and Drug Abuse Patient Records regulations: The Federal rules restrict any use of the information to criminally investigate or prosecute any alcohol or drug abuse patient.[facility] the event this information is protected by the Federal Confidentiality of Alcohol and Drug Abuse Patient Records regulations: The Federal rules restrict any use of the information to criminally investigate or prosecute any alcohol or drug abuse patient.[facility] the event this information is protected by the Federal Confidentiality of Alcohol and Drug Abuse Patient Records regulations: The Federal rules restrict any use of the information to criminally investigate or prosecute any alcohol or drug abuse patient.[facility] the event this information is protected by the Federal Confidentiality of Alcohol and Drug Abuse Patient Records regulations: The Federal rules restrict any use of the information to criminally investigate or prosecute any alcohol or drug abuse patient.[facility] the event this information is protected by the Federal Confidentiality of Alcohol and Drug Abuse Patient Records regulations: The Federal rules restrict any use of the information to criminally investigate or prosecute any alcohol or drug abuse patient.[facility] HospitalIn the event this information is protected by the Federal Confidentiality of Alcohol and Drug Abuse Patient Records regulations: The Federal rules restrict any use of the information to criminally investigate or prosecute any alcohol or drug abuse patient.[facility]In the event this information is protected by the Federal Confidentiality of Alcohol and Drug Abuse Patient Records regulations: The Federal rules restrict any use of the information to criminally investigate or prosecute any alcohol or drug abuse patient.[facility] the event this information is protected by the Federal Confidentiality of Alcohol and Drug Abuse Patient Records regulations: The Federal rules restrict any use of the information to criminally investigate or prosecute any alcohol or drug abuse patient.[facility] HospitalIn the event this information is protected by the Federal Confidentiality of Alcohol and Drug Abuse Patient Records regulations: The Federal rules restrict any use of the information to criminally investigate or prosecute any alcohol or drug abuse patient.[facility] Care Teams (unrecognized sec tion and content) Motor Mechanic Relationship Specialty Start Date End Date Princess Madrid MD [address] [facility] [place] [address] PCP - General Internal Medicine [facility]/23[facility] [address] [facility] [place] [address] Pharmacist Pharmacy 07/31/20 Motor Mechanic Relationship Specialty Start Date End Date Princess Madrid MD [address] [facility] [place] [address] PCP - General Internal Medicine 04/23/17 [facility] [address] [facility] [place] [address] Pharmacist Pharmacy 07/31/20 Motor Mechanic Relationship Specialty Start Date End Date Princess Madrid MD [address] [facility] [place] [address] PCP - General Internal Medicine 04/23/17 [facility] [address] [facility] [place] [address] Pharmacist Pharmacy 07/31/20 Motor Mechanic Relationship Specialty Start Date End Date Princess Madrid MD [address] [facility] [place] [address] PCP - General Internal Medicine 04/23/17 Debbi Acuña [facility] [address] [place] [address] Pharmacist Pharmacy 07/31/20 Motor Mechanic Relationship Specialty Start Date End Date Princess Madrid MD [address] [facility] [place] [address] PCP - General Internal Medicine 04/23/17 [facility] [address] [facility] [place] [address] Pharmacist Pharmacy 07/31/20 Motor Mechanic Relationship Specialty Start Date End Date Princess Madrid MD [address] [facility] [place] [address] PCP - General Internal Medicine 04/23/17 [facility] [address] [facility] [place] [address] Pharmacist Pharmacy 07/31/20 Motor Mechanic Relationship Specialty Start Date End Date Princess Madrid MD [address] [facility] [place] [address] PCP - General Internal Medicine 04/23/17 [facility] [address] [facility] [place] [address] Pharmacist Pharmacy 07/31/20 Motor Mechanic Relationship Specialty Start Date End Date Princess Madrid MD [address] [facility] [place] [address] PCP - General Internal Medicine 04/23/17 [facility] [address] [facility] [place] [address] Pharmacist Pharmacy 07/31/20 Motor Mechanic Relationship Specialty Start Date End Date Princess Madrid MD [address] [facility] [place] [address] PCP - General Internal Medicine 04/23/17 [facility] [address] [place] [address] Pharmacist Pharmacy 07/31/20 Motor Mechanic Relationship Specialty Start Date End Date Princess Madrid MD [address] [place] [address] PCP - General Internal Medicine 04/23/17 [facility] [address] [place] [address] Pharmacist Pharmacy 07/31/20 Motor Mechanic Relationship Specialty Start Date End Date Princess Madrid MD [address] [place] [address] PCP - General Internal Medicine 04/23/17 [facility] [address] [place] [address] Pharmacist Pharmacy 07/31/20 Motor Mechanic Relationship Specialty Start Date End Date Princess Madrid MD [address] [place] [address] PCP - General Internal Medicine 04/23/17 [facility] [address] [place] [address] Pharmacist Pharmacy 07/31/20 Motor Mechanic Relationship Specialty Start Date End Date Princess Madrid MD [address] [place] [address] PCP - General Internal Medicine 04/23/17 [facility] [address] [place] [address] Pharmacist Pharmacy 07/31/20 Motor Mechanic Relationship Specialty Start Date End Date Princess Madrid MD [address] [place] [address] PCP - General Internal Medicine 04/23/17 [facility] [address] [facility] [place] [address] Pharmacist Pharmacy 07/31/20 Motor Mechanic Relationship Specialty Start Date End Date Princess Madrid MD [address] [place] [address] PCP - General Internal Medicine 04/23/17 [facility] [address] [facility] [place] [place] [address] Pharmacist Pharmacy 07/31/20 Motor Mechanic Relationship Specialty Start Date End Date Princess Madrid MD [address] [facility] [place] [address] PCP - General Internal Medicine 04/23/17 [facility] [address] [facility] [place] [address] Pharmacist Pharmacy 07/31/20 Motor Mechanic Relationship Specialty Start Date End Date Princess Madrid MD [address] [facility] [place] [place] [address] PCP - General Internal Medicine 04/23/17 Motor Mechanic Relationship Specialty Start Date End Date Princess Madrid MD [address] [facility] [place] [address] PCP - General Internal Medicine 04/23/17 Motor Mechanic Relationship Specialty Start Date End Date Princess Madrid MD [address] [facility] [place] [address] PCP - General Internal Medicine 04/23/17 Motor Mechanic Relationship Specialty Start Date End Date Princess Madrid MD [address] [facility] [place] [address] PCP - General Internal Medicine 04/23/17 Debbi Acuña, [facility] [address] [place] [address] Pharmacist Pharmacy 07/31/20 05/21/23 Reason for Visit (unrecogniz ed section and content) Reason Comments severe lower back pain pain radiating down left leg Reason Comments Refill Request Reason Onset Date Comments Refill Request 03/12/2022 Reason Onset Date Comments Refill Request 05/10/2022 Reason Comments Hypertension Reason Comments glucose meter broken medication request Reason Onset Date Comments Recheck Medication follo w up Immunizations 12/06/2022 Flu vaccination Reason Comments Diabetes Specialty Diagnoses / Procedures Referred By Myra t Referred To Contact Diagnoses Poorly controlled type 2 diabetes mellitus with peripheral neuropathy (HCC) Procedures CONSULT TO DIABETES EDUCATION OFFICE/OUTPATIENT [facility] 60-74 MINUTES Older, [place], [employer] [address] [place] [address] [facility] [address] [place] [address] Referral ID Status Reason Start Date Expiration Date V isits Requested Visits Authorized [id number] Closed PCP Requested Referral 12/06/2022 12/06/2023 1 1 Reason Comments Appointment Reason Comments Established Patient Follow Up Diabetic Foot Care Specialty Diagnoses / Procedures Referred By Myra t Referred To Contact Podiatry Diagnoses Poorly controlled type 2 diabetes mellitus with peripheral neuropathy (HCC) Callus of foot Procedures CONSULT TO PODIATRY OFFICE/OUTPATIENT [facility] 60-74 MINUTES Older, [place], [employer] [address] [place] [address] Referral ID Status Reason Start Date Expiration Date V isits Requested Visits Authorized [id number] Closed PCP Requested Referral 12/06/2022 12/06/2023 1 1 Reason Comments Recheck DM follow up Reason Comments Recheck BP follow up Reason Onset Date Comments Refill Request 01/16/2023 Reason Comments Recheck 3 month follow up Reason Comments Appointment Reason Comments Transition Of Care Diabetes Care Team (unrecognized sect ion and content) Care Team Related Persons Name: RASHMI RILEY FOR RECORDS PERTAINING TO PATIENTS WHO ARE OR HAVE BEEN ENROLLED IN A CHEMICAL DEPENDENCY/SUBSTANCEABUSE PROGRAM, SOME INFORMATION MAY BE OMITTED. This clinical summary was aggregated from multiple sources. Caution should be exercised in using it in the provision of clinical care. This summary normalizes information from multiple sources, and as a consequence, information in this document may materially change the coding, format and clinical context of patient data. In addition, data may be omitted in some cases. CLINICAL DECISIONS SHOULD BE BASED ON THE PRIMARY CLINICAL RECORDS. [facility] provides no warranty or guarantee of the accuracy or completeness of information in this document.
== END | disposition home or self-care (01) ==
LOC: LABSPEC 10:13
PROVIDERS: PCP Internal Medicine; Referring Provider Internal Medicine; Visit Provider Internal Medicine
DX: U07.1 COVID-19 (principal); R05.9 Cough, unspecified
CPT/HCPCS: 87635

== ENCOUNTER → 2024-04-12 | Outpatient (CLI) | payer MEDICARE, MEDICAID, SELFPAY ==
[2024-04-12 12:10] LABS: Absolute Lymphocyte Count 3.11 X10^3/uL (0.83-4.51); Absolute Neutrophil Count 9.1 X10^3/uL (2.0-7.7); Basophil# 0.13 X10^3/uL; Basophil% 0.9 % (0-1); Eosinophil# 0.45 X10^3/uL; Eosinophils% 3.3 % (0-5); Hemoglobin 16.9 g/dL (12.0-15.0); Lymphocyte # 3.11 X10^3/ul (0.83-4.51); Lymphocyte % 22.5 % (19-41); Mean Corp Hgb Conc 31.3 g/dL (32-36); Mean Corpuscular Hgb 29.1 pg (27.0-32.0); Mean Corpuscular Volume 92.9 fL (81-99); Monocyte# 1.04 X10^3/uL; Monocyte% 7.5 % (0-10); NRBC Flagged by Analyzer 0 % (0-5); Neutrophil # 9.05 X10^3/uL (2.7-7.7); Neutrophil % 65.4 % (47-70); Platelet Count 288 K/mm3 (150-450); RBC Distribution Width CV 13.4 % (11.6-14.6); RBC Distribution Width SD 45.5 fl (35.1-43.9); Red Blood Count 5.81 M/mm3 (4.2-5.4); White Blood Count 13.8 K/mm3 (4.4-11.0)
[2024-04-12 12:40] LABS: ALB/GLOB Ratio 0.9 RATIO (0.9-2.4); AST(SGOT) 17 U/L (15-37); Alanine Aminotransfer ALT/SGPT 24 U/L (13-56); Albumin, Serum 3.6 g/dL (3.2-5.0); Alkaline Phosphatase 111 U/L (45-117); Anion Gap 5 (5-15); BUN 18 mg/dL (7-18); BUN/Creat Ratio 23.3 RATIO (10-20); Calcium,Total 9.3 mg/dL (8.5-10.1); Chloride 105 mmol/L (98-107); Cholesterol 155 mg/dL (200); Creatinine, Serum 0.77 mg/dL (0.55-1.02); EST Glomerular Filtration Rate 81 mL/min (>60); Est Glom Filt Rate - Afr Amer 98 mL/min (>60); Globulin 4.1 g/dL (2.2-4.2); Glucose 170 mg/dL (74-106); High Density Lipoprotein 58 mg/dL; Potassium 4.5 mmol/L (3.5-5.1); Protein, Total 7.7 g/dL (6.4-8.2); Sodium Level 134 mmol/L (136-145); Triglycerides 145 mg/dL; Very Low Density Lipoprotein 29 mg/dL (5-40)
[2024-04-12 13:21] LABS: Microalbumin:Creatinine Ratio 383.8 mg/g CRE (<30 mg/g CRE)
== END | disposition home or self-care (01) ==
LOC: BIMLAB 07:54
PROVIDERS: PCP Internal Medicine; Visit Provider Internal Medicine
DX: E11.42 Type 2 diabetes mellitus with diabetic polyneuropathy (principal)
CPT/HCPCS: 36415; 80053; 80061; 82043; 82570; 85025

== ENCOUNTER → 2025-02-17 | Outpatient (CLI) | payer MEDICARE, MEDICAID, SELFPAY ==
--- NOTE | 2025-02-17 07:57 | VDLE_ITS ---
Reason For Study Reason For Study: Pain RIGHT LEFT CFV is compressible, spontaneous, phasic, competent GSV is normal. and demonstrates normal augmentation. CFV is compressible, spontaneous, phasic, competent, Procedure and demonstrates normal augmentation. This is a venous duplex using B-mode, color flow and FV is compressible, spontaneous, phasic, competent spectral Doppler. and demonstrates normal augmentation. Exam performed in department. POP V is compressible, spontaneous, phasic, competent and demonstrates normal augmentation. T/P Trunk is compressible. PTV is compressible. LT PerV is compressible. VL/Venous Duplex US, Unilateral Interpretation Summary Deep veins of the left lower extremity are patent and compressible segmentally. There is no evidence of left lower extremity deep vein thrombosis. Valvular competence appears intact within the p roximal deep venous system on the left . The left great saphenous vein appears patent and compressible segmentally. The right common femoral vein is patent and compressible . Ordering Physician: Chelsea Self Referring Physician: Chelsea Self Performed By: Dee Granger
== END | disposition home or self-care (01) ==
LOC: CVS 07:57
PROVIDERS: PCP Internal Medicine; Referring Provider Internal Medicine; Visit Provider Internal Medicine
DX: M79.662 Pain in left lower leg (principal); M79.89 Other specified soft tissue disorders
CPT/HCPCS: 93971

== ENCOUNTER 2025-03-30 22:18 | Inpatient (IN) | payer MEDICARE, MEDICAID, SELFPAY ==
[2025-03-30] VITALS (8 sets, daily range): BP systolic 139–174; BP diastolic 71–131; PULSE 78–91; RESP 14–24; TEMP 36.4; O2SAT 91–98; BMI 39.2
[2025-03-30 23:04] LABS: Absolute Lymphocyte Count 3.41 X10^3/uL (0.83-4.51); Absolute Neutrophil Count 7.9 X10^3/uL (2.0-7.7); Basophil# 0.11 X10^3/uL; Basophil% 0.8 % (0-1); Eosinophil# 0.57 X10^3/uL; Eosinophils% 4.3 % (0-5); Hematocrit 49.4 % (37-47); Hemoglobin 17.2 g/dL (12.0-15.0); Lymphocyte # 3.41 X10^3/ul (0.83-4.51); Lymphocyte % 25.8 % (19-41); Mean Corp Hgb Conc 34.8 g/dL (32-36); Mean Corpuscular Hgb 31.7 pg (27.0-32.0); Monocyte# 1.15 X10^3/uL; Monocyte% 8.7 % (0-10); NRBC Flagged by Analyzer 0 % (0-5); Neutrophil % 59.9 % (47-70); Platelet Count 271 K/mm3 (150-450); RBC Distribution Width CV 12.8 % (11.6-14.6); RBC Distribution Width SD 42.3 fl (35.1-43.9); Red Blood Count 5.43 M/mm3 (4.2-5.4); White Blood Count 13.2 K/mm3 (4.4-11.0)
--- NOTE | 2025-03-30 23:05 | RAD_ITS ---
PROCEDURE: CHEST PA AND LATERAL 03/30/2025 REASON FOR EXAM: CHEST PAIN TECHNIQUE: Frontal and lateral views of the chest. FINDINGS: Hardware: None Heart: The heart size is normal. Mediastinum: The mediastinal contour is unremarkable. Lungs: The lungs are clear. Bones: The bones are unremarkable. RAD/Chest PA and Lateral IMPRESSION: NO ACUTE FINDINGS. Reading Location: [id number]
[2025-03-30] MEDS: Orphenadrine 60 MG/2 ML Ampul IV (23:15)
[2025-03-30] MEDS: Ketorolac 15 MG/ML Vial IV (23:15)
[2025-03-30 23:38] LABS: D-Dimer Quantitative (DVT/PE) 0.41 FEU/ug/m (0.27-0.49)
[2025-03-31] VITALS (25 sets, daily range): BP systolic 132–170; BP diastolic 73–110; PULSE 74–95; RESP 14–20; TEMP 36.4–36.8; O2SAT 88–99; BMI 39.1
[2025-03-31 00:37] LABS: Magnesium 2.1 mg/dL (1.5-2.2)
[2025-03-31 00:41] LABS: Anion Gap 12 (5-15); BUN 18 mg/dL (4-19); BUN/Creat Ratio 25.9 RATIO (10-20); Calcium,Total 10.6 mg/dL (7.6-11.0); Carbon Dioxide 24.3 mmol/L (21.0-32.0); Chloride 102 mmol/L (98-108); Creatinine, Serum 0.69 mg/dL (0.70-1.20); EST Glomerular Filtration Rate 99 (>60); Estimated Creatinine Clearance 90.79 ml/min (50-250); Glucose 198 mg/dL (70-99); Potassium 4.6 mmol/L (3.3-5.1); Sodium Level 138 mmol/L (133-145); Troponin T High Sensitivity 76 ng/L (<=14)
[2025-03-31] MEDS: Aspirin 81 MG TAB.CHEW 324 MG PO (00:52)
--- NOTE | 2025-03-31 01:44 | PCM.HP.STD ---
HPI - General General Date of Admission: 03/31/25 Date of Service: 03/31/25 Chief Complaint: Chest pain. HPI Narrative The patient is a 59 y/o F w/ PMHx: Anxiety and Depression, Morbid obesity, HTN, HLD, KESHAWN, Diabetes mellitus type II, COPD, Tobacco use who presents to the [facility] ED on 03/31/2025 with history of onset chest discomfort primarily in the sternal region with radiation toward the back described as a burning/sharp shooting pain sensation with associated dyspnea worse with exertion, waxing and waning over the last 3 days and given not subsiding prompted eventual ED evaluation. She notes that her discomfort has been occurring at rest and with activity. She denies any associated diaphoresis, nausea or emesis. In the ED patient initially rating her chest discomfort 6 out of 10 in severity. Following ED interventions chest discomfort improved to 2 out of 10 in severity and eventually completely resolved however she notes she was recently up to the restroom and following this upon current evaluation is rating pain 4-5 out of 10 in severity. Workup in the ED included T97.5, heart rate 91, BP 174/79, respiratory rate 20, 95% on room air with most recent repeat vital signs T98.3, heart rate 77, BP 159/88, respiratory rate 16, 97% on room air, CBC with WBC 13.2, hemoglobin 17.2, platelet 271 with left shift, D-dimer 0.41, BMP with BUN/creatinine 18/0.69, GFR 99, glucose 198, magnesium 2.1, initial troponin 76, chest x-ray with no acute cardiopulmonary findings, EKG with SR with no acute evidence of ischemia. In the ED patient ministered aspirin 324 mg p.o. x 1, Toradol 15 mg IV x 1, Norflex 60 mg IV x 1. [facility] Medical History Allergic rhinitis Tobacco use Left ventricular outflow obstruction Obstructive sleep apnea Essential hypertension Perirectal abscess (11/03/19) Hyperlipidemia COPD (chronic obstructive pulmonary disease) Type 2 diabetes mellitus Home Medications ?Medication ?Instructions ?Recorded ?Last Taken ?Type aspirin 81 mg tablet,delayed 81 mg PO DAILY 11/18/19 Unknown History release (Adult Aspirin Regimen) loperamide 2 mg capsule 2 mg PO Q1-4H PRN loose stool 11/30/19 Unknown History fluticasone propionate 50 1 spray intranasal DAILY #16 grams 12/31/23 Unknown Rx mcg/actuation nasal spray,suspension (Children's Flonase Allergy Relief) albuterol sulfate 90 mcg/actuation 2 puff inhalation Q3-4H PRN 10/26/24 Unknown Rx aerosol inhaler (Ventolin HFA) bronchospasm #8.5 grams blood sugar diagnostic (Accu-Chek #100 ea 11/10/24 Unknown Rx Vero Plus test strips) blood-glucose meter (Accu-Chek #1 ea 11/10/24 Unknown Rx Guide Glucose Meter) lancets (Accu-Chek Fastclix Lancet #100 ea 11/10/24 Unknown Rx Drum) cyclobenzaprine 10 mg tablet 10 mg PO TID PRN pain #30 tabs 12/23/24 Unknown Rx glimepiride 4 mg tablet 4 mg PO BID #180 tabs 01/24/25 Unknown Rx losartan 100 mg tablet 100 mg PO DAILY #90 tabs 01/24/25 Unknown Rx sertraline 100 mg tablet 100 mg PO DAILY #90 tabs 01/24/25 Unknown Rx atorvastatin 40 mg tablet 40 mg PO DAILY #90 tabs 01/25/25 Unknown Rx montelukast 10 mg tablet 10 mg PO QDAY #90 tabs 01/25/25 Unknown Rx nitroglycerin 0.4 mg sublingual 0.4 mg sublingual Q5-15M PRN chest 01/25/25 Unknown Rx tablet pain #30 tabs verapamil 180 mg tablet,extended 180 mg PO BID #180 tabs 01/25/25 Unknown Rx release albuterol sulfate 2.5 mg/3 mL 2.5 mg (3 mL) continuous 01/31/25 Unknown Rx (0.083 %) solution for nebulization nebulization Q4H PRN PRN Wheezing #75 mL tirzepatide 2.5 mg/0.5 mL 2.5 mg (0.5 mL) subcut QWEEK #2 mL 03/20/25 Unknown Rx subcutaneous pen injector (Mounjaro) Allergy/AdvReac Type Severity Reaction Status Date / Time meperidine (From Demerol) AdvReac Severe Behavioral Verified 03/30/25 22:18 change Family History Mother CAD (coronary artery disease) Stented coronary artery Hypertension Renal cancer Grandmother Stented coronary artery Heart disease Uncle Cancer prostate Hypertension other (Patient notes her father left when she was an and is unaware of his medical history.) Surgical History History of incision and drainage History of back surgery H/O tubal ligation Social History (Updated 03/31/25 @ 02:[address] Kathy Templeton MD) household members: spouse current occupational status: disabled current occupation: disability for COPD/back pets and animals: Yes (1) pets and animals: cat(s) Smoking Status: Current every day smoker tobacco type: cigarettes Smoking packs per day: 1 Smoking cigarettes per day: 20.0 Tobacco: How many years used: 47 Electronic Cigarette Use: not used quit status: not considering quitting alcohol intake: never substance use type: does not use caffeine: Yes (5) Type: carbonated beverages and coffee what type of physical activity do you participate in: walking frequency: daily cr/rastafari: Advent seatbelt use: always do you feel safe at home: Yes ROS ROS Narrative Admission Review of Systems: CONSTITUTIONAL: No weight loss, fever, chills, weakness or fatigue. HEENT: Eyes: No visual loss, blurred vision, double vision or yellow sclerae. Ears, Nose, Throat: No hearing loss, sneezing, congestion, runny nose or sore throat. SKIN: No rash or itching, lesions, wounds. CARDIOVASCULAR: + Chest pain. No palpitations, edema, orthopnea, syncopal events. RESPIRATORY: + Occasional exertional dyspnea, occasional wheezing. No marked cough or sputum, hemoptysis. GASTROINTESTINAL: No anorexia, nausea, vomiting or diarrhea, abdominal pain, melena, BRBPR. GENITOURINARY: No dysuria, frequency, urgency or retention. NEUROLOGICAL: No headache, dizziness, syncope, paralysis, ataxia, numbness or tingling in the extremities, focal weakness, change in bowel or bladder control, seizure. MUSCULOSKELETAL: No muscle, back pain, joint pain or stiffness. HEMATOLOGIC: No anemia, bleeding or bruising. LYMPHATICS: No enlarged nodes. No history of splenectomy. PSYCHIATRIC: + History of anxiety and depression. ENDOCRINOLOGIC: No reports of sweating, cold or heat intolerance. No polyuria or polydipsia. ALLERGIES: + History of allergic rhinitis. Vital Signs Vital Signs Vital Signs: 03/30/25 22:18 03/30/25 22:35 03/30/25 22:45 Temperature 97.5 F L Temperature Source Temporal Pulse Rate 91 85 84 Respiratory Rate 20 H 15 20 H Blood Pressure 174/79 H 155/71 H Blood Pressure Mean 110 95 Pulse Ox 95 95 94 Oxygen Delivery Method Room Air 03/30/25 23:00 03/30/25 23:00 03/30/25 23:15 Temperature Temperature Source Pulse Rate 85 85 Respiratory Rate 24 H 16 Blood Pressure 146/131 H 146/131 H 141/83 H Blood Pressure Mean 137 137 100 Pulse Ox 91 92 Oxygen Delivery Method Room Air 03/30/25 23:18 03/30/25 23:30 03/30/25 23:45 Temperature Temperature Source Pulse Rate 78 82 82 Respiratory Rate 14 14 23 H Blood Pressure 155/78 H 153/78 H 139/114 H Blood Pressure Mean 103 99 123 Pulse Ox 98 94 92 Oxygen Delivery Method Room Air 03/31/25 00:00 03/31/25 00:00 03/31/25 00:15 Temperature Temperature Source Pulse Rate 81 80 Respiratory Rate 18 16 Blood Pressure 133/75 H 133/75 H 148/95 H Blood Pressure Mean 94 93 110 Pulse Ox 98 95 Oxygen Delivery Method Room Air 03/31/25 00:30 03/31/25 00:45 03/31/25 00:50 Temperature 98.3 F Temperature Source Pulse Rate 77 80 Respiratory Rate 20 H 18 Blood Pressure 133/77 H 160/94 H 160/94 H Blood Pressure Mean 94 113 116 Pulse Ox 95 97 Oxygen Delivery Method 03/31/25 01:00 03/31/25 01:15 Temperature Temperature Source Pulse Rate 79 77 Respiratory Rate 19 H 16 Blood Pressure 159/88 H Blood Pressure Mean 108 Pulse Ox 97 97 Oxygen Delivery Method Room Air Weight Weight: 207 lb 8 oz Body Mass Index (BMI) 39.2 Physical Exam Narrative Physical Examination: General: Awake, alert, oriented x 3 and cooperative, seated upright in the ED bed, recently up to the restroom, notes recurrent chest discomfort currently 4-5 out of 10 in severity. Skin: Normal color, normal turgor, no icterus, no cyanosis. HEENT: AT/NC, EOMI, PERRLA, MMM, no carotid bruits or JVD noted; however thickened neck makes evaluation difficult. Lungs: Mildly diminished, greater bases, occasional end expiratory wheeze but not severe, appropriate effort, no rales, ronchi or wheezing. Heart: Regular rate and rhythm; no gallop, rub audible. Abdomen: Soft, morbidly obese, NTTP, distant BS, difficult to discern distention and HSM given habitus. Extremities: No cyanosis, no clubbing, mild ankle not markedly pitting bilateral chronic edema per patient discussion. Neurological: Patient awake, alert, oriented as noted, cognitive function intact; pupils equally reactive to light and accommodation, cranial nerves gross normal, moving all 4 extremities, no focal deficits, strength moderately to severely globally decreased secondary to acute presentation complaints. Psychiatric: Affect appears fatigued otherwise normal, no acute evidence of depressive or anxiety feelings but does have underlying history. Results Lab / Micro Data 03/30/25 22:33 03/31/25 00:11 Labs: Laboratory Results - last 24 hr 03/30/25 22:33: WBC 13.2 H, RBC 5.43 H, Hgb 17.2 H, Hct 49.4 H, MCV 91.0, MCH 31.7, MCHC 34.8, RDW Std Deviation 42.3, RDW Coeff of Cecilia 12.8, Plt Count 271, MPV 10.0, Immature Gran % (Auto) 0.500, Neut % (Auto) 59.9, Lymph % (Auto) 25.8, [place] % (Auto) 8.7, Eos % (Auto) 4.3, Baso % (Auto) 0.8, Absolute Neuts (auto) 7.9 H, Absolute Lymphs (auto) 3.41, Nucleated RBC % 0, D-Dimer Quant (PE/DVT) 0.41, Sodium Cancelled, Potassium Cancelled, Chloride Cancelled, Carbon Dioxide Cancelled, Anion Gap Cancelled, BUN Cancelled, Creatinine Cancelled, Estim Creat Clear Calc Cancelled, Est GFR (MDRD) Non-Af Cancelled, BUN/Creatinine Ratio Cancelled, Glucose Cancelled, Calcium Cancelled, Magnesium Cancelled, Troponin T High Sens Cancelled 03/31/25 00:11: Sodium 138, Potassium 4.6, Chloride 102, Carbon Dioxide 24.3, Anion Gap 12, BUN 18, Creatinine 0.69 L, Estim Creat Clear Calc 90.79, Est GFR (MDRD) Non-Af 99, BUN/Creatinine Ratio 25.9 H, Glucose 198 H, Calcium 10.6, Magnesium 2.1, Troponin T High Sens 76 H* Imaging Radiology Impression Chest X-Ray 03/30/25 23:05 IMPRESSION: NO ACUTE FINDINGS. Reading Location: [id number] Assessment & Plan Assessment/Plan (1) Chest pain: PLAN: Plan The patient is a 59 y/o F w/ PMHx: Anxiety and Depression, Morbid obesity, HTN, HLD, KESHAWN, Diabetes mellitus type II, COPD, Tobacco use who presents to the [facility] ED on 03/31/2025 with history of onset chest discomfort primarily in the sternal region with radiation toward the back described as a burning/sharp shooting pain sensation with associated dyspnea worse with exertion, waxing and waning over the last 3 days and given not subsiding prompted eventual ED evaluation. #1. Chest Pain w/ Acute NSTEMI rule in per algorithm: EKG in ED w/ SR without acute evidence of ischemia, CXR w/ no acute evidence of ischemia, trop elevated 76. Will admit to PCU, maintain on a monitored bed, continue serial cardiac enzymes and EKGs. Magnesium per ED 2.1. Will start therapeutic lovenox pending continued trending. Given FS ASA in the ED. Will continue baby ASA. FLP in AM. ECHO requested. Given currently rules in as NSTEMI based on algorithm will maintain NPO status on IVFs with Cardiology consultation request. ASA, NG, morphine. #2. Chronic COPD: Per review of list not on chronic regimen, will maintain on ATC DuoNeb therapy, PRN albuterol, HOB, IS parameters. #3. Diabetes mellitus type II: Hold oral home regimen, ADA diet when not NPO, accu checks w/ ISS, HgbA1c requested. #4. Hypertension: Continue home regimen including verapamil, losartan, PRN hydralazine. #5. Hyperlipidemia: Continue home statin regimen. AM FLP. #6. Tobacco Abuse: Encouraged cessation, inpatient consultation per RT, NR if desired. #7. Allergic rhinitis: Will continue patient home fluticasone regimen. #8. Morbid Obesity: Weight loss and lifestyle changes encouraged. #9. Anxiety and depression: Will continue patient on sertraline regimen. #10. KESHAWN: Supposed to be using BIPAP q HS, notes has not been using as often pulls off in her sleep, willing to trial upon admission. #11. DVT prophylaxis: Therapeutic Lovenox. #12. CODE status: Patient HCPOA and LW not in place but she notes her will be her medical decision-maker if necessary. Discussed CODE status at length including difference between FULL code, DNR-CCA and DNR-CC status. Following discussions about the differences in these status, requested Full Code status. Charges/Coding Visit Charges Inpatient E&M: 33685 Init Hosp L3
--- NOTE | 2025-03-31 01:44 | EX.ED.DYSGE1 ---
HPI History of Present Illness Chief Complaint: Chest Pain Informant: patient and spouse/S.O. Narrative Narrative: Patient is a 59-year-old female with past medical history of type 2 diabetes COPD who continues to smoke KESHAWN hypertension and hyperlipidemia. She states for the past 3 days she has had bouts of sharp midsternal to left-sided chest discomfort. She states it can occur at motion or at rest. She reports that she feels like it radiates towards her back. She denies any nausea vomiting diaphoresis or shortness of breath associated with this. She states will typically last a few minutes and then resolve. She does report that her mother had history of cardiac disease requiring stents and with the recurrent discomfort has concerned this could be cardiac in nature and therefore comes in for evaluation [facility] Medical History Allergic rhinitis Tobacco use Left ventricular outflow obstruction Obstructive sleep apnea Essential hypertension Perirectal abscess (11/03/19) Hyperlipidemia COPD (chronic obstructive pulmonary disease) Type 2 diabetes mellitus Home Medications ?Medication ?Instructions ?Recorded ?Last Taken ?Type aspirin 81 mg tablet,delayed 81 mg PO DAILY 11/18/19 Unknown History release (Adult Aspirin Regimen) loperamide 2 mg capsule 2 mg PO Q1-4H PRN loose stool 11/30/19 Unknown History fluticasone propionate 50 1 spray intranasal DAILY #16 grams 12/31/23 Unknown Rx mcg/actuation nasal spray,suspension (Children's Flonase Allergy Relief) albuterol sulfate 90 mcg/actuation 2 puff inhalation Q3-4H PRN 10/26/24 Unknown Rx aerosol inhaler (Ventolin HFA) bronchospasm #8.5 grams blood sugar diagnostic (Accu-Chek #100 ea 11/10/24 Unknown Rx Vero Plus test strips) blood-glucose meter (Accu-Chek #1 ea 11/10/24 Unknown Rx Guide Glucose Meter) lancets (Accu-Chek Fastclix Lancet #100 ea 11/10/24 Unknown Rx Drum) cyclobenzaprine 10 mg tablet 10 mg PO TID PRN pain #30 tabs 12/23/24 Unknown Rx glimepiride 4 mg tablet 4 mg PO BID #180 tabs 01/24/25 Unknown Rx losartan 100 mg tablet 100 mg PO DAILY #90 tabs 02/24/25 Unknown Rx sertraline 100 mg tablet 100 mg PO DAILY #90 tabs 01/24/25 Unknown Rx atorvastatin 40 mg tablet 40 mg PO DAILY #90 tabs 01/25/25 Unknown Rx montelukast 10 mg tablet 10 mg PO QDAY #90 tabs 01/25/25 Unknown Rx nitroglycerin 0.4 mg sublingual 0.4 mg sublingual Q5-15M PRN chest 01/25/25 Unknown Rx tablet pain #30 tabs verapamil 180 mg tablet,extended 180 mg PO BID #180 tabs 01/25/25 Unknown Rx release albuterol sulfate 2.5 mg/3 mL 2.5 mg (3 mL) continuous 01/31/25 Unknown Rx (0.083 %) solution for nebulization nebulization Q4H PRN PRN Wheezing #75 mL tirzepatide 2.5 mg/0.5 mL 2.5 mg (0.5 mL) subcut QWEEK #2 mL 03/20/25 Unknown Rx subcutaneous pen injector (Mounjaro) Allergy/AdvReac Type Severity Reaction Status Date / Time meperidine (From Demerol) AdvReac Severe Behavioral Verified 03/30/25 22:18 change Family History Mother CAD (coronary artery disease) Stented coronary artery Hypertension Renal cancer Grandmother Stented coronary artery Heart disease Uncle Cancer prostate Hypertension Surgical History History of incision and drainage History of back surgery H/O tubal ligation Social History (Updated 03/31/25 @ 02:[address] Kathy Templeton MD) household members: spouse current occupational status: disabled current occupation: disability for COPD/back pets and animals: Yes (1) pets and animals: cat(s) Smoking Status: Current every day smoker tobacco type: cigarettes Smoking packs per day: 1 Smoking cigarettes per day: 20.0 Tobacco: How many years used: 47 Electronic Cigarette Use: not used quit status: not considering quitting alcohol intake: never substance use type: does not use caffeine: Yes (5) Type: carbonated beverages and coffee what type of physical activity do you participate in: walking frequency: daily cr/jehovah's witness: Taoism seatbelt use: always do you feel safe at home: Yes ROS ROS ED Constitutional Constitutional ED: Denies chills or fever(s) Eyes Eyes: Denies blurry vision or change in vision ENT ENT ED: Denies sore throat Cardiovascular Cardiovascular: Reports chest pain; Denies palpitations or racing heartbeat Respiratory/Chest Respiratory/Chest: Reports cough and other Details: Patient reports this is chronic secondary to COPD ; Denies dyspnea Gastrointestinal Gastrointestinal: Denies abdominal pain, diarrhea, nausea or vomiting Genitourinary Genitourinary ED: Denies dysuria Musculoskeletal Musculoskeletal: Reports back pain; Denies neck pain Integumentary Denies rash Neurologic Neurologic: Denies headache(s) Hematologic/Lymphatic Hematologic/Lymphatic: Denies easy bleeding or easy bruising EXAM Physical Exam Const Vital Signs: 03/30/25 22:18 03/30/25 22:35 03/30/25 22:45 Temperature 97.5 F L Temperature Source Temporal Pulse Rate 91 85 84 Respiratory Rate 20 H 15 20 H Blood Pressure 174/79 H 155/71 H Blood Pressure Mean 110 95 Pulse Ox 95 95 94 Oxygen Delivery Method Room Air 03/30/25 23:00 03/30/25 23:00 03/30/25 23:15 Temperature Temperature Source Pulse Rate 85 85 Respiratory Rate 24 H 16 Blood Pressure 146/131 H 146/131 H 141/83 H Blood Pressure Mean 137 137 100 Pulse Ox 91 92 Oxygen Delivery Method Room Air 03/30/25 23:18 03/30/25 23:30 03/30/25 23:45 Temperature Temperature Source Pulse Rate 78 82 82 Respiratory Rate 14 14 23 H Blood Pressure 155/78 H 153/78 H 139/114 H Blood Pressure Mean 103 99 123 Pulse Ox 98 94 92 Oxygen Delivery Method Room Air 03/31/25 00:00 03/31/25 00:00 03/31/25 00:15 Temperature Temperature Source Pulse Rate 81 80 Respiratory Rate 18 16 Blood Pressure 133/75 H 133/75 H 148/95 H Blood Pressure Mean 94 93 110 Pulse Ox 98 95 Oxygen Delivery Method Room Air 03/31/25 00:30 03/31/25 00:45 03/31/25 00:50 Temperature 98.3 F Temperature Source Pulse Rate 77 80 Respiratory Rate 20 H 18 Blood Pressure 133/77 H 160/94 H 160/94 H Blood Pressure Mean 94 113 116 Pulse Ox 95 97 Oxygen Delivery Method 03/31/25 01:00 03/31/25 01:15 Temperature Temperature Source Pulse Rate 79 77 Respiratory Rate 19 H 16 Blood Pressure 159/88 H Blood Pressure Mean 108 Pulse Ox 97 97 Oxygen Delivery Method Room Air Positive well nourished, well developed and obese General Appearance ED: well developed; Negative for pallor Nutritional Appearance: obese HEENT Reports moist mucous membranes HEENT Narrative: Normocephalic atraumatic Eyes PERRL and EOMs intact bilaterally General Eye ED: Negative for scleral icterus Neck supple and no JVD Neck Narrative: No nuchal rigidity or meningeal signs Chest Wall Chest Narrative: There is reproducible pain with palpation of the mid sternum to the left chest wall that patient states is similar to the pain she has been experiencing There is no subcutaneous emphysema or bony deformity noted No overlying soft tissue changes to suggest trauma or infection Resp normal respiratory effort Resp Narrative: Breath sounds are diminished throughout with faint expiratory wheeze and rhonchi in the bilateral bases consistent with history of COPD No signs of respiratory distress Cardio regular rate and regular rhythm Rate: other Other Details: Radial and carotid pulses are equal and symmetric GI normal to inspection, nondistended, normoactive bowel sounds, non-tender, non-distended and no masses GI Narrative: No voluntary guarding or rigidity or pulsatile mass Auscultation: normoactive bowel sounds Palpation: soft Extremity normal to inspection Extremity Narrative: No pitting edema noted Neuro oriented x3, CN's II-XII intact bilaterally and no sensory deficits noted Sensorium / Orientation: alert Motor Exam: strength 5/5 throughout Psych mental status grossly normal Skin no rashes or lesions noted General Skin Exam: Negative for jaundice or pallor MDM MDM MDM Narrative Medical decision making narrative: Patient arrived to the ER hypertensive but has a past medical history of this. She reported intermittent chest discomfort. She has multiple risk factors for cardiac disease and even though her report of symptoms are not classic cardiac there is concern for ACS and therefore an EKG with basic blood work was obtained. EKG was sinus rhythm without obvious STEMI or ischemic changes. Patient showed no cardiac dysrhythmia while in the threat monitoring analyst either. A chest x-ray was obtained to rule out lung pathology such as pneumonia or pneumothorax. X-ray revealed no acute lung findings. With the pain shooting through there is concern for pulmonary embolus or dissection so a D-dimer was obtained which was normal going against this. The patient's initial troponin was elevated at 76 which effectively causes her to rule in into the cardiac algorithm. Her delta troponin remained flat at a value of 74. However secondary to her elevated value and her multiple risk factors she will need admitted for continued cardiac evaluation. Therefore the case was discussed with the hospitalist who agrees to accept the patient for continued care. History & Record Review Discussion w/independent historian: Patient and Significant other Lab Data Attestation: I reviewed the patient's lab results. Labs: Laboratory Results - last 24 hr 03/30/25 03/31/25 22:33 00:11 WBC 13.2 H RBC 5.43 H Hgb 17.2 H Hct 49.4 H MCV 91.0 MCH 31.7 MCHC 34.8 RDW Std Deviation 42.3 RDW Coeff of Cecilia 12.8 Plt Count 271 MPV 10.0 Immature Gran % (Auto) 0.500 Neut % (Auto) 59.9 Lymph % (Auto) 25.8 [place] % (Auto) 8.7 Eos % (Auto) 4.3 Baso % (Auto) 0.8 Absolute Neuts (auto) 7.9 H Absolute Lymphs (auto) 3.41 Nucleated RBC % 0 D-Dimer Quant (PE/DVT) 0.41 Sodium Cancelled 138 Potassium Cancelled 4.6 Chloride Cancelled 102 Carbon Dioxide Cancelled 24.3 Anion Gap Cancelled 12 BUN Cancelled 18 Creatinine Cancelled 0.69 L Estim Creat Clear Calc Cancelled 90.79 Est GFR (MDRD) Non-Af Cancelled 99 BUN/Creatinine Ratio Cancelled 25.9 H Glucose Cancelled 198 H Calcium Cancelled 10.6 Magnesium Cancelled 2.1 Troponin T High Sens Cancelled 76 H* Radiography Diagnostic Testing: Clinical Impression(s) from Imaging Studies Chest X-Ray 03/30/25 23:05 IMPRESSION: NO ACUTE FINDINGS. Reading Location: [id number] view chest x-ray as interpreted by the emergency medicine physician reveals no acute infiltrate pneumothorax pleural effusion or widening to the mediastinum Management Discussion w/another healthcare provider: Hospitalist Discharge Plan Dx/Rx/DC Orders Clinical Impression: Chest pain, Type 2 diabetes mellitus, COPD (chronic obstructive pulmonary disease), Hyperlipidemia, Essential hypertension, Elevated troponin Disposition Disposition: [facility]
--- NOTE | 2025-03-31 01:52 | EKG12_ITS ---
Test Reason : new admit - chest pain Blood Pressure : */* mmHG Vent. Rate : 76 BPM Atrial Rate : 76 BPM P-R Int : 178 ms QRS Dur : 78 ms QT Int : 408 ms P-R-T Axes : 90 16 66 degrees QTcB Int : 459 ms Normal sinus rhythm with sinus arrhythmia Normal ECG When compared with ECG of 30-Mar-2025 22:31, MANUAL COMPARISON REQUIRED DATA IS UNCONFIRMED Confirmed by AREN BALDERRAMA, CHAN ([id number]), index editor ALESSIA STALLINGS ([id number]) on 04/01/2025 6:36:52 AM Referred By: Baldemar Barrientos Confirmed By: CHAN YOUNGER MD
[2025-03-31 02:47] LABS: Troponin T High Sens 2 HR 74 ng/L (<=14)
--- NOTE | 2025-03-31 03:04 | ECHOD_ITS ---
Reason For Study : NSTEMI Procedure This was a 2D Doppler, Color Flow transthoracic echocardiogram. The study was technically difficult. Exam performed portable in patient room. Left Ventricle Normal LV size. Moderate eccentric left ventricular hypertrophy. Left ventricular systolic function is hyperdynamic. The left ventricular ejection fraction is 70 %. Valsalva LV gradient 97 mmHg. Stage 1 diastolic dysfunction. No regional wall motion abnormalities noted. Right Ventricle Normal RV size. Normal systolic function. Atria Normal left atrium. Normal right atrium. Mitral Valve Normal mitral valve. Tricuspid Valve Normal tricuspid valve. Aortic Valve Trisinus/trileaflet aortic valve. Great Vessels Normal aortic root. The pulmonary artery is normal size. Inferior vena cava collapse with respiration. Pericardium/Pleural No pericardial effusion. Medication Diluted definity 2.0ml given slow IV push to enhance endocardial definition. MMode/2D Measurements & Calculations LVIDd: 3.8 cm IVSd: 1.4 cm Ao root diam: 2.9 cm LVIDs: 2.3 cm LVPWd: 0.94 cm FS: 38.1 % LVAd ap4: 29.0 cm2 LVAd ap2: 27.0 cm2 SV(MOD-sp4): 60.2 ml LVLd ap4: 7.5 cm LVLd ap2: 7.5 cm SI(MOD-sp4): 31.4 ml/m2 EDV(MOD-sp4): 90.4 ml EDV(MOD-sp2): 78.9 ml EDV(sp4-el): 94.7 ml EDV(sp2-el): 82.3 ml LVAs ap4: 14.8 cm2 LVAs ap2: 11.9 cm2 LVLs ap4: 6.4 cm LVLs ap2: 5.9 cm ESV(MOD-sp4): 30.2 ml ESV(MOD-sp2): 20.3 ml ESV(sp4-el): 29.1 ml ESV(sp2-el): 20.4 ml EF(MOD-sp4): 66.6 % EF(MOD-sp2): 74.2 % EF(sp4-el): 69.3 % SV(MOD-sp2): 58.5 ml SV(sp4-el): 65.6 ml LA dimension(2D): 3.2 cm SI(MOD-sp2): 30.5 ml/m2 Doppler Measurements & Calculations MV E max amlo: 73.2 cm/sec Lat Peak E' Amol: 7.0 cm/sec Med Peak E' Amol: 10.2 cm/sec MV A max amol: 117.0 cm/sec E/E' lat: 10.5 E/E' med: 7.2 MV E/A: 0.63 Ao V2 max: 143.2 cm/sec LV V1 max: 104.9 cm/sec PA V2 max: 113.0 cm/sec Ao max P.2 mmHg LV V1 max P.4 mmHg ECHO/Echo Complete W/ Contrast Interpretation Summary Normal LV size. Left ventricular systolic function is hyperdynamic. The left ventricular ejection fraction is 70 %. Valsalva LV gradient 97 mmHg. Moderate eccentric left ventricular hypertrophy. Stage 1 diastolic dysfunction. Contrast injection was performed. Ordering Physician: Kathy Templeton Referring Physician: Baldemar Barrientos Performed By: Josiane Varela RDCS
[2025-03-31] MEDS: 0.9% Normal Saline (1000mL) 1,000 ML 100 ML IV (03:26)
[2025-03-31] MEDS: Enoxaparin 100 MG/ML Syringe 95 MG SC ×2 (03:27→20:45)
[2025-03-31] MEDS: Morphine 2 MG/ML Syringe IV (03:46)
[2025-03-31] MEDS: Ondansetron 4 MG/2 ML Vial IV (03:46)
[2025-03-31] MEDS: 0.9% Saline Lock 10 ML Syringe IV ×2 (03:47→20:43)
[2025-03-31 04:28] LABS: Absolute Lymphocyte Count 4.07 X10^3/uL (0.83-4.51); Absolute Neutrophil Count 7.6 X10^3/uL (2.0-7.7); Basophil# 0.13 X10^3/uL; Eosinophil# 0.63 X10^3/uL; Eosinophils% 4.7 % (0-5); Hematocrit 48.2 % (37-47); Lymphocyte # 4.07 X10^3/ul (0.83-4.51); Lymphocyte % 30.1 % (19-41); Mean Corp Hgb Conc 33.2 g/dL (32-36); Mean Corpuscular Hgb 30.2 pg (27.0-32.0); Mean Corpuscular Volume 90.9 fL (81-99); Mean Platelet Vol. 9.6 fl (6.2-12.0); Monocyte% 7.4 % (0-10); NRBC Flagged by Analyzer 0 % (0-5); Neutrophil # 7.64 X10^3/uL (2.7-7.7); Neutrophil % 56.4 % (47-70); Platelet Count 261 K/mm3 (150-450); RBC Distribution Width CV 12.8 % (11.6-14.6); RBC Distribution Width SD 42.1 fl (35.1-43.9); White Blood Count 13.5 K/mm3 (4.4-11.0)
[2025-03-31 05:23] LABS: Troponin T High Sens 4 HR 83 ng/L (<=14)
[2025-03-31] MEDS: Verapamil SR 180 MG CAPSULE PO ×2 (05:23→20:45)
[2025-03-31] MEDS: Losartan Potassium 100 MG Tablet PO (05:24)
[2025-03-31 06:47] LABS: ALB/GLOB Ratio 1.5 RATIO (0.9-2.4); AST(SGOT) 21 U/L (<=31); Alanine Aminotransfer ALT/SGPT 18 U/L (<=34); Albumin, Serum 4.1 g/dL (3.4-4.8); Alkaline Phosphatase 97 U/L (35-104); Anion Gap 13 (5-15); BUN 17 mg/dL (4-19); BUN/Creat Ratio 25.3 RATIO (10-20); Carbon Dioxide 20.6 mmol/L (21.0-32.0); Chloride 103 mmol/L (98-108); Creatinine, Serum 0.68 mg/dL (0.70-1.20); EST Glomerular Filtration Rate 100 (>60); Estimated Creatinine Clearance 92.06 ml/min (50-250); Globulin 2.8 g/dL (2.2-4.2); Glucose 157 mg/dL (70-99); Potassium 4.3 mmol/L (3.3-5.1); Sodium Level 136 mmol/L (133-145); Total Bilirubin 0.24 mg/dL (0.00-1.30)
[2025-03-31] MEDS: Ipratropium/Albuterol Sulfate 3 ML AMPUL.NEB INHALATION ×3 (07:10→20:08)
[2025-03-31 07:18] LABS: Bedside Glucose 142 mg/dL (74-106)
[2025-03-31 07:46] LABS: Hemoglobin A1c 9.6 % (<=5.6)
--- NOTE | 2025-03-31 08:22 | PCM.CONS.C ---
Assessment & Plan Assessment/Plan (1) Elevated troponin: PLAN: Patient has elevated troponin. The above will be evaluated with a left heart catheterization. Depending on the results further recommendations will be made. Addendum: Cardiac catheterization demonstrated normal left main coronary artery. Left anterior send artery with proximal 30% stenosis. Nondominant circumflex artery with no significant stenosis. Dominant large right coronary artery with eccentric 50% proximal stenosis and mid to distal 90% ulcerated stenosis. Preserved ejection fraction with eccentric hypertrophy. Based on the above angiographic findings the patient will be considered for PCI of the right coronary artery. (2) Essential hypertension: PLAN: Patient has a history of hypertension and the plan to be to continue her on the current medical therapy. She is on verapamil and an ESTHELA inhibitor and a diuretic can be added. (3) Hyperlipidemia: QUALIFIERS: Hyperlipidemia type: unspecified Qualified Code(s): E78.5 - Hyperlipidemia, unspecified PLAN: Patient will continue aggressive risk factor modification. HPI Consult Data Date of Consult: 03/31/25 HPI Narrative HPI Narrative: OSVALDO PERALES, is a 59 F who presents with chest discomfort which she describes as in the sternal region radiating towards the back sometimes as a burning sharp discomfort associated with dyspnea and exertion. She does have a history of hypertension hyperlipidemia obesity diabetes mellitus and obstructive lung disease. She presented to the emergency room with a chest discomfort she was noted to have an elevated blood pressure and cardiac troponin enzymes were elevated. EKG demonstrated normal sinus rhythm with no acute changes but due to the elevated blood pressure and the troponin cardiology was consulted for further evaluation and management. EKG demonstrated sinus rhythm with no acute changes. FORMERLY [facility] Medical History Allergic rhinitis Tobacco use Left ventricular outflow obstruction Obstructive sleep apnea Essential hypertension Perirectal abscess (11/03/19) Hyperlipidemia COPD (chronic obstructive pulmonary disease) Type 2 diabetes mellitus Home Medications ?Medication ?Instructions ?Recorded ?Last Taken ?Type aspirin 81 mg tablet,delayed 81 mg PO DAILY 11/18/19 Unknown History release (Adult Aspirin Regimen) loperamide 2 mg capsule 2 mg PO Q1-4H PRN loose stool 11/30/19 Unknown History fluticasone propionate 50 1 spray intranasal DAILY #16 grams 12/31/23 Unknown Rx mcg/actuation nasal spray,suspension (Children's Flonase Allergy Relief) albuterol sulfate 90 mcg/actuation 2 puff inhalation Q3-4H PRN 10/26/24 Unknown Rx aerosol inhaler (Ventolin HFA) bronchospasm #8.5 grams blood sugar diagnostic (Accu-Chek #100 ea 11/10/24 Unknown Rx Vero Plus test strips) blood-glucose meter (Accu-Chek #1 ea 11/10/24 Unknown Rx Guide Glucose Meter) lancets (Accu-Chek Fastclix Lancet #100 ea 11/10/24 Unknown Rx Drum) cyclobenzaprine 10 mg tablet 10 mg PO TID PRN pain #30 tabs 12/23/24 Unknown Rx glimepiride 4 mg tablet 4 mg PO BID #180 tabs 01/24/25 Unknown Rx losartan 100 mg tablet 100 mg PO DAILY #90 tabs 01/24/25 Unknown Rx sertraline 100 mg tablet 100 mg PO DAILY #90 tabs 01/24/25 Unknown Rx atorvastatin 40 mg tablet 40 mg PO DAILY #90 tabs 01/25/25 Unknown Rx montelukast 10 mg tablet 10 mg PO QDAY #90 tabs 01/25/25 Unknown Rx nitroglycerin 0.4 mg sublingual 0.4 mg sublingual Q5-15M PRN chest 01/25/25 Unknown Rx tablet pain #30 tabs verapamil 180 mg tablet,extended 180 mg PO BID #180 tabs 01/25/25 Unknown Rx release albuterol sulfate 2.5 mg/3 mL 2.5 mg (3 mL) continuous 01/31/25 Unknown Rx (0.083 %) solution for nebulization nebulization Q4H PRN PRN Wheezing #75 mL tirzepatide 2.5 mg/0.5 mL 2.5 mg (0.5 mL) subcut QWEEK #2 mL 03/20/25 Unknown Rx subcutaneous pen injector (Mounjaro) Allergy/AdvReac Type Severity Reaction Status Date / Time meperidine (From Demerol) AdvReac Severe Behavioral Verified 03/30/25 22:18 change Family History Mother CAD (coronary artery disease) Stented coronary artery Hypertension Renal cancer Grandmother Stented coronary artery Heart disease Uncle Cancer prostate Hypertension Family History other Surgical History History of incision and drainage History of back surgery H/O tubal ligation Social History household members: spouse current occupational status: disabled current occupation: disability for COPD/back pets and animals: Yes (1) pets and animals: cat(s) Smoking Status: Current every day smoker tobacco type: cigarettes Smoking packs per day: 1 Smoking cigarettes per day: 20.0 Tobacco: How many years used: 47 Electronic Cigarette Use: not used quit status: not considering quitting alcohol intake: never substance use type: does not use caffeine: Yes (5) Type: carbonated beverages and coffee what type of physical activity do you participate in: walking frequency: daily cr/spiritism: Worship seatbelt use: always do you feel safe at home: Yes ROS Constitutional Constitutional: Denies fever(s) or weight loss Eyes Eyes: Reports systems reviewed and no addt'l complaints, except as documented ENT HEENT: Reports systems reviewed and no addt'l complaints, except as documented Cardiovascular Cardiovascular: Reports chest pain at rest, chest pain with activity, dyspnea at rest and dyspnea on exertion; Denies edema, palpitations or paroxysmal nocturnal dyspnea Respiratory/Chest Respiratory/Chest: Denies dyspnea on exertion, productive cough, shortness of breath at rest or shortness of breath with exertion Gastrointestinal Gastrointestinal: Denies change in bowel habits, nausea, vomiting or weight changes Genitourinary Genitourinary: Denies difficulty urinating Musculoskeletal Musculoskeletal: Denies joint stiffness or muscle weakness Integumentary Integumentary: Denies lesions Neurologic Neurologic: Denies dizziness or syncope Psychiatric Psychiatric: Denies anxiety Endocrine Endocrinology: Denies excessive sweating or fatigue Hematologic/Lymphatic Hematologic/Lymphatic: Denies anemia Allergic/Immunologic Allergic/Immunologic: Denies seasonal rhinorrhea Physical Exam Const alert, oriented x3 and no apparent distress General Appearance: cooperative HEENT hearing grossly normal bilaterally Head and Scalp: atraumatic Eyes EOMs intact bilaterally Neck General: normal visual inspection Chest inspection of chest normal and palpation of chest normal Resp normal respiratory effort Auscultation: clear to auscultation bilaterally Cardio regular rate, regular rhythm, S1 normal heart sound and S2 normal heart sound Jugular Venous Distention: JVD GI normal to inspection, nondistended, normoactive bowel sounds Extremity normal capillary refill and no pedal edema Peripheral Pulses: Yes pulses 2+ throughout and femoral pulses present Skin no rashes or lesions noted Neuro oriented x3 and CN's II-XII intact bilaterally Psych Appearance: grossly normal and appropriate Risk Stratification Risk Stratification Applicable: Yes Age >/= 65: No >/= 3 CAD Risk Factors (HTN, HLD, DM, family hx of CAD, or current smoker): Yes Aspirin Use in the Past 7 Days: Yes Severe Angina (>/= episodes in 24 hours): No EKG ST Changes >/= 0.5mm: No Positive Cardiac Marker: Yes ODILIA Risk Stratification Score: 3 ODILIA % Risk: 13% Risk Objective Data Vital Signs: Vital Signs Temp Pulse Resp BP Pulse Ox O2 Del Method 98.0 F 76 14 132/76 H 99 Room Air 03/31/25 03:27 03/31/25 05:24 03/31/25 03:27 03/31/25 05:24 03/31/25 03:27 03/31/25 03:27 Oxygen Delivery Method Room Air Weight: 207 lb 3.752 oz Body Mass Index (BMI) 39.1 Intake & Output: Intake and Output for Last 24 Hours 03/29/25 03/30/25 03/31/25 23:59 23:59 23:59 Output Total 300 / 300 Balance -300 / -300 Lab / Micro Data 03/31/25 04:17 03/31/25 04:17 Labs: Laboratory Results - last 24 hr 03/30/25 22:33: WBC 13.2 H, RBC 5.43 H, Hgb 17.2 H, Hct 49.4 H, MCV 91.0, MCH 31.7, MCHC 34.8, RDW Std Deviation 42.3, RDW Coeff of Cecilia 12.8, Plt Count 271, MPV 10.0, Immature Gran % (Auto) 0.500, Neut % (Auto) 59.9, Lymph % (Auto) 25.8, Ransom % (Auto) 8.7, Eos % (Auto) 4.3, Baso % (Auto) 0.8, Absolute Neuts (auto) 7.9 H, Absolute Lymphs (auto) 3.41, Nucleated RBC % 0, D-Dimer Quant (PE/DVT) 0.41, Sodium Cancelled, Potassium Cancelled, Chloride Cancelled, Carbon Dioxide Cancelled, Anion Gap Cancelled, BUN Cancelled, Creatinine Cancelled, Estim Creat Clear Calc Cancelled, Est GFR (MDRD) Non-Af Cancelled, BUN/Creatinine Ratio Cancelled, Glucose Cancelled, Calcium Cancelled, Magnesium Cancelled, Troponin T High Sens Cancelled 03/31/25 00:11: Sodium 138, Potassium 4.6, Chloride 102, Carbon Dioxide 24.3, Anion Gap 12, BUN 18, Creatinine 0.69 L, Estim Creat Clear Calc 90.79, Est GFR (MDRD) Non-Af 99, BUN/Creatinine Ratio 25.9 H, Glucose 198 H, Calcium 10.6, Magnesium 2.1, Troponin T High Sens 76 H* 03/31/25 02:10: Troponin T Hi Sens 2 Hr 74 H* 03/31/25 04:17: WBC 13.5 H, RBC 5.30, Hgb 16.0 H, Hct 48.2 H, MCV 90.9, MCH 30.2, MCHC 33.2, RDW Std Deviation 42.1, RDW Coeff of Cecilia 12.8, Plt Count 261, MPV 9.6, Immature Gran % (Auto) 0.400, Neut % (Auto) 56.4, Lymph % (Auto) 30.1, Ransom % (Auto) 7.4, Eos % (Auto) 4.7, Baso % (Auto) 1.0, Absolute Neuts (auto) 7.6, Absolute Lymphs (auto) 4.07, Nucleated RBC % 0, Sodium 136, Potassium 4.3, Chloride 103, Carbon Dioxide 20.6 L, Anion Gap 13, BUN 17, Creatinine 0.68 L, Estim Creat Clear Calc 92.06, Est GFR (MDRD) Non-Af 100, BUN/Creatinine Ratio 25.3 H, Glucose 157 H, Hemoglobin A1c 9.6 H, Calcium 10.0, Total Bilirubin 0.24, AST 21, ALT 18, Alkaline Phosphatase 97, Troponin T Hi Sens 4Hr 83 H*, Total Protein 7.0, Albumin 4.1, Globulin 2.8, Albumin/Globulin Ratio 1.5 03/31/25 06:44: POC Glucose 142 H Cardiology Labs/Tests 03/30/25 22:33: WBC 13.2 H, RBC 5.43 H, Hgb 17.2 H, Hct 49.4 H, MCV 91.0, MCH 31.7, MCHC 34.8, Plt Count 271, MPV 10.0, Immature Gran % (Auto) 0.500, Neut % (Auto) 59.9, Lymph % (Auto) 25.8, Ransom % (Auto) 8.7, Eos % (Auto) 4.3, Baso % (Auto) 0.8, Absolute Neuts (auto) 7.9 H, Nucleated RBC % 0, D-Dimer Quant (PE/DVT) 0.41, Sodium Cancelled, Potassium Cancelled, Chloride Cancelled, Carbon Dioxide Cancelled, Anion Gap Cancelled, BUN Cancelled, Creatinine Cancelled, Est GFR (MDRD) Non-Af Cancelled, BUN/Creatinine Ratio Cancelled, Glucose Cancelled, Calcium Cancelled, Magnesium Cancelled 03/31/25 00:11: Sodium 138, Potassium 4.6, Chloride 102, Carbon Dioxide 24.3, Anion Gap 12, BUN 18, Creatinine 0.69 L, Est GFR (MDRD) Non-Af 99, BUN/Creatinine Ratio 25.9 H, Glucose 198 H, Calcium 10.6, Magnesium 2.1 03/31/25 04:17: WBC 13.5 H, RBC 5.30, Hgb 16.0 H, Hct 48.2 H, MCV 90.9, MCH 30.2, MCHC 33.2, Plt Count 261, MPV 9.6, Immature Gran % (Auto) 0.400, Neut % (Auto) 56.4, Lymph % (Auto) 30.1, Ransom % (Auto) 7.4, Eos % (Auto) 4.7, Baso % (Auto) 1.0, Absolute Neuts (auto) 7.6, Nucleated RBC % 0, Sodium 136, Potassium 4.3, Chloride 103, Carbon Dioxide 20.6 L, Anion Gap 13, BUN 17, Creatinine 0.68 L, Est GFR (MDRD) Non-Af 100, BUN/Creatinine Ratio 25.3 H, Glucose 157 H, Hemoglobin A1c 9.6 H, Calcium 10.0, Total Bilirubin 0.24 Rhythm: EKG: ECHO: Stress Test: Cardiac Cath: PCI: CT Surgery: Holter monitor: EPS: PPM: CXR: Chest CT Scan: Radiography Diagnostic Testing: Radiology Impression Chest X-Ray 03/30/25 23:05 IMPRESSION: NO ACUTE FINDINGS. Reading Location: [id number]
--- NOTE | 2025-03-31 08:28 | CPS ---
Pt states she is supposed to wear a BIPAP at night but does not like it and does not want one. This RT told Pt to let them know if they change there mind.
--- NOTE | 2025-03-31 08:31 | PCM.PN.HOSP ---
Reason for Visit Reason for Visit: Diagnoses Chest pain, unspecified (03/31/25) Subjective Subjective Patient is a 49-year-old female admitted with chest pain. Patient was found to have elevated troponin consistent with acute non-STEMI admitted to a monitored bed for subsequent management Objective Data Objective Data Vital Signs: Vital Signs Temp Pulse Resp BP Pulse Ox O2 Del Method 98.0 F 78 16 132/76 H 93 Room Air 03/31/25 03:27 03/31/25 07:10 03/31/25 07:10 03/31/25 05:24 03/31/25 07:10 03/31/25 07:10 Oxygen Delivery Method Room Air Weight: 94 kg Body Mass Index (BMI) 39.1 Intake & Output: Intake and Output for Last 24 Hours 03/29/25 03/30/25 03/31/25 23:59 23:59 23:59 Output Total 300 / 300 Balance -300 / -300 Lab / Micro Data 03/31/25 04:17 03/31/25 04:17 Labs: Laboratory Results - last 24 hr 03/30/25 22:33: WBC 13.2 H, RBC 5.43 H, Hgb 17.2 H, Hct 49.4 H, MCV 91.0, MCH 31.7, MCHC 34.8, RDW Std Deviation 42.3, RDW Coeff of Cecilia 12.8, Plt Count 271, MPV 10.0, Immature Gran % (Auto) 0.500, Neut % (Auto) 59.9, Lymph % (Auto) 25.8, Hitchcock % (Auto) 8.7, Eos % (Auto) 4.3, Baso % (Auto) 0.8, Absolute Neuts (auto) 7.9 H, Absolute Lymphs (auto) 3.41, Nucleated RBC % 0, D-Dimer Quant (PE/DVT) 0.41, Sodium Cancelled, Potassium Cancelled, Chloride Cancelled, Carbon Dioxide Cancelled, Anion Gap Cancelled, BUN Cancelled, Creatinine Cancelled, Estim Creat Clear Calc Cancelled, Est GFR (MDRD) Non-Af Cancelled, BUN/Creatinine Ratio Cancelled, Glucose Cancelled, Calcium Cancelled, Magnesium Cancelled, Troponin T High Sens Cancelled 03/31/25 00:11: Sodium 138, Potassium 4.6, Chloride 102, Carbon Dioxide 24.3, Anion Gap 12, BUN 18, Creatinine 0.69 L, Estim Creat Clear Calc 90.79, Est GFR (MDRD) Non-Af 99, BUN/Creatinine Ratio 25.9 H, Glucose 198 H, Calcium 10.6, Magnesium 2.1, Troponin T High Sens 76 H* 03/31/25 02:10: Troponin T Hi Sens 2 Hr 74 H* 03/31/25 04:17: WBC 13.5 H, RBC 5.30, Hgb 16.0 H, Hct 48.2 H, MCV 90.9, MCH 30.2, MCHC 33.2, RDW Std Deviation 42.1, RDW Coeff of Cecilia 12.8, Plt Count 261, MPV 9.6, Immature Gran % (Auto) 0.400, Neut % (Auto) 56.4, Lymph % (Auto) 30.1, Hitchcock % (Auto) 7.4, Eos % (Auto) 4.7, Baso % (Auto) 1.0, Absolute Neuts (auto) 7.6, Absolute Lymphs (auto) 4.07, Nucleated RBC % 0, Sodium 136, Potassium 4.3, Chloride 103, Carbon Dioxide 20.6 L, Anion Gap 13, BUN 17, Creatinine 0.68 L, Estim Creat Clear Calc 92.06, Est GFR (MDRD) Non-Af 100, BUN/Creatinine Ratio 25.3 H, Glucose 157 H, Hemoglobin A1c 9.6 H, Calcium 10.0, Total Bilirubin 0.24, AST 21, ALT 18, Alkaline Phosphatase 97, Troponin T Hi Sens 4Hr 83 H*, Total Protein 7.0, Albumin 4.1, Globulin 2.8, Albumin/Globulin Ratio 1.5 03/31/25 06:44: POC Glucose 142 H Radiography Diagnostic Testing: Radiology Impression Chest X-Ray 03/30/25 23:05 IMPRESSION: NO ACUTE FINDINGS. Reading Location: [facility] Physical Exam Narrative GENERAL: cooperative HEENT: Atraumatic; normocephalic EYES; Anicteric, Normal Conjunctiva NECK; supple, normal thyroid, RESPIRATORY: Diminished to auscultation CARDIOVASCULAR: Regular S1 S2, GI: soft, normoactive bowel sounds, : No Renal angle tenderness; EXTREMITIES: No edema, no clubbing, MUSCULOSKELETAL: no muscle wasting NEURO: Awake; no lateralizing signs. SKIN: No Rash PSYCH; Flat affect Assessment & Plan Assessment/Plan (1) Chest pain: PLAN: Plan Patient is a 49-year-old female admitted with chest pain. Patient was found to have elevated troponin consistent with acute non-STEMI admitted to a monitored bed for subsequent management 1. Acute non-STEMI ? Patient admitted to a monitored bed treatment initiated per protocol with antiplatelet therapy with aspirin, statin therapy with atorvastatin as well as Lovenox therapeutic dose. Consult was placed to cardiology. Patient underwent left heart catheterization with PCI to an RCA lesion 2. Diabetes mellitus type 2 ? Oral antiglycemic agents held placed on Accu-Cheks ACHS with sliding scale coverage 3. Dyslipidemia ?Patient is on statin therapy, continued at home dose 4. Hypertension ? Blood pressure controlled, home medications continued with dose adjustment as needed 5. Allergic rhinitis ? Patient is on montelukast did continue 6. Depression with anxiety ? Patient is on sertraline did continue 7. Class II obesity with BMI of 39.2 ? Complicating care weight loss advised 8. Obstructive sleep apnea ? Consistent use of PAP therapy encouraged 9. COPD ? Currently not in exacerbation aerosol treatments as needed 10. Tobacco dependence ? Counseled on cessation, offered nicotine patch for tobacco cravings 11. Acute hypoxia ? Patient is is not on home oxygen. Placed on supplemental oxygen which is currently being titrated to keep saturation greater than 90. Patient will have to be assessed for home oxygen prior to being discharged 12. DVT prophylaxis ? Patient is on enoxaparin time spent in the patient's overall evaluation,decision-making process, review of diagnostic data, adjustment of management, discussion with other providers, nursing nursing and ancillary staff involved in patient's care documentation, 52 Minutes Charges/Coding Visit Charges Inpatient E&M: 85194 [facility] Hosp L3
--- NOTE | 2025-03-31 09:13 | CL.D_ITS ---
Patient Name: OSVALDO PERALES Study Date: 03/31/2025 Performing: Rene Jackson MD Ht: 61 inches 154.94 cm : 1965 Wt: 207.23 lbs 94 kg Age: 59 Gender: female BSA: 1.92 PROCEDURE(S) PERFORMED [id number])LHC/COR/LV CLINICAL PROFILE AND INDICATIONS Indications: Suspected CAD Heart Failure: None Stress/Imaging Stress/Image Study Performed: No CAD Presentations: Unstable angina. CONCLUSIONS Severe single-vessel disease involving the distal right coronary artery with ulcerated plaque of 90%. RECOMMENDATIONS Referred for immediate PCI DESCRIPTION OF PROCEDURE The patient arrived to the procedure lab. The risks and benefits of the procedure as well as a full description of our services here and current unavailability of surgical backup were fully explained to the patient and/or their significant other prior to the catheterization. The Timeout was completed, verifying the correct patient and procedure. The patient's procedural site was prepped and draped in the usual fashion. Local anesthetic was given subcutaneously to right radial region with Lidocaine 2%. Using a modified Seldinger technique, arterial access was obtained via the right radial artery, a 6Fr sheath was inserted. Left Coronary Artery selective angiography was performed in multiple views using a 5 Fr. 4.0 [place] catheter. Right Coronary Artery selective angiography was then performed in multiple views using a 5 Fr. 4.0 [place] catheter. Left Ventriculography was performed in [place] projection using a 5 Fr. Pig[place] catheter. LV to AO pullback pressures were then recorded. CORONARY ANGIOGRAPHY DOMINANCE: Right Dominant LEFT HEART ASSESSMENT Left Ventricular Ejection Fraction: by LV Gram 70 % Normal LV wall motion Normal Left Ventricular systolic function LEFT MAIN: Angiographically normal LEFT ANTERIOR DESCENDING ARTERY: Proximal 30% stenosis mid to mild diffuse luminal irregularities. CIRCUMFLEX ARTERY: Mild left circumflex artery disease with 30% OM1 stenosis. RIGHT CORONARY ARTERY: Dominant right coronary artery with proximal eccentric 30% stenosis and then distal eccentric ulcerated plaque with 90% stenosis prior to the bifurcation of the posterior descending artery and the posterolateral vessel. COMPLICATIONS PROCEDURE MEDICATIONS Fentanyl 50 mcg IV Versed 1 mg IV Versed 1 mg IV Oxygen: 2 L/min via nasal cannula Oxygen: 4 L/min via nasal cannula Baby Aspirin (81mg) 1 Tabs PO 03/31/2025 08:35:54 Brilinta 180 mg PO @ 03/31/2025 09:04:49 Heparin given IA 03/31/2025 08:42:30 Verapamil 2.5mg, Ntg 100mcgs, 3000 units of Heparin given IA 03/31/2025 08:42:30 SUMMARY OF HEMODYNAMIC DATA Time AIR REST ECG 08:40:50 AO 111/58 (80) SA 08:51:48 AO 103/58 (78) 08:56:12 LV 121/3, 13 08:59:55 LV 114/2, 11 09:00:01 LV 118/14, 20 09:00:51 LV 118/12, 19 09:00:57 LVp 109/11, 21 09:01:30 AOp 110/59 (82) 09:01:35 Signed By Rene Jackson MD On 03/31/2025 09:12:10 Rene Jackson MD
--- NOTE | 2025-03-31 10:27 | PCI.CARDCATH ---
PCI Cardiac Cath Report PCI Report: PCI cardiac cath report; 1. Moderate sedation 2. Successful PCI of the distal RCA 90% stenosis with predilatation using a 2 x 15 balloon followed by placement of drug-eluting stent 3.5 x 22 mm Almira frontier drug-eluting stent Overlapped with 3.5 x 38 mm Almira frontier drug-eluting stent Postdilated using 4 x 15 mm NC balloon to the distal and the mid RCA stent. Reduction of stenosis to 0% Pre and post PCI ODILIA III flow maintained. Consent; Risk and benefits procedure explained detail patient like to proceed informed consent obtained. Preprocedure diagnosis 59-year-old patient, with history of diabetes mellitus, smoker Underwent cardiac catheterization by the primary flat ironer Dr. Jackson I reviewed the cardiac catheterization and angiographic findings Patient has EF with a normal ejection fraction calculated 70% Left main is normal angiographically, LAD had a proximal 30% stenosis and mild diffuse luminal irregularity in the midportion of the LAD The left circumflex artery had 30% OM 1 stenosis. The right coronary artery has ruptured plaque in the distal portion which is around 90% also haziness was noted in the midportion of the RCA. Based on the angiographic finding and the clinical presentation we will proceed with the plan of PCI of the distal and the mid RCA. Interventional equipment used; 1. 6 Mongolian JR4 guide 2. 0.014 180 cm run-through extra floppy guidewire straight. 3. 2 x 15 mm balloon 4. 3.5 x 22 mm Almira frontier drug-eluting stent 5. 3.5 x 38 mm Almira frontier drug-eluting stent 6. 4 x 15 NC balloon. Medication used in the Operations Scheduler 1. Patient was given Brilinta 180 mg in the Operations Scheduler Aspirin 2. Heparin a total of 3000 in the cocktail with radial access And also 7000 was given. ACT level is acceptable above 250. 3. Intracoronary nitroglycerin 200 mcg. Procedure in detail; Proceed with the guide catheter from the right radial approach Cannulated the RCA ostium without difficulty Then we proceeded with the guidewire crossed the lesion and placed the wire in the posterolateral branch Then we will proceed with a balloon dilatation from the distal portion of the RCA as well as the proximal portion of the RCA Initially we used 2 x 50 mm balloon to the distal RCA and we used 3 x 15 for the proximal RCA This followed by placement of a drug-eluting stent we used a strategy of covering the 2 lesions to prevent to graphic missed And we were able to place the stent 3.5 x 22 mm in the distal segment of the RCA and we overlapped with 3.5 x 38 mm to the mid RCA. Then this followed by postdilatation using 4 x 50 mm. L achieve an excellent result. Patient with stable hemodynamically Following this including ACT level was measured which is acceptable above 250 The right radial artery sheath was flushed and a TR band applied to maintain hemostasis. Patient has no symptoms of chest pain Has been stable hemodynamically Conclusion and recommendations; Successful PCI of the culprit lesion which is the distal and mid RCA as described 2. Patient will be admitted to CCU overnight for observation 3. Patient to continue on dual antiplatelet therapy with Brilinta 90 mg twice daily in addition to low-dose aspirin 81 mg. Patient will be scheduled for post-PCI cardiac rehab program here at [facility] Finding of cardiac catheterization discussed also with the family and the Patient advised cessation of smoking and monitoring the risk factors and control of diabetes Randolph Rush MD,[facility] hat finishing materials preparer
[2025-03-31] MEDS: Fluticasone 0.05% 1 SPRAY NASAL.SRY NASAL (10:36)
[2025-03-31] MEDS: Sertraline 100 MG Tablet PO (10:36)
[2025-03-31] MEDS: Aspirin E.C. 81 MG Tablet PO (10:36)
[2025-03-31] MEDS: Montelukast 10 MG Tablet PO (10:36)
--- NOTE | 2025-03-31 10:41 | CRPH1.INST_ITS ---
General Education Discussed with Patient CAD and cardiac anatomy and function:: Patient communicates acknowledgment and Needs reinforcement Explanation of diagnoses and procedures:: Patient communicates acknowledgment and Needs reinforcement Sign/Symptoms of TX:: Patient communicates acknowledgment and Needs reinforcement Antiplatelet therapy: Patient communicates acknowledgment and Needs reinforcement Proper use of NTG-SL: Patient communicates acknowledgment and Needs reinforcement Emergency procedures and activation of EMS: Patient communicates acknowledgment and Needs reinforcement Compliance of all prescribed medications: Patient communicates acknowledgment and Needs reinforcement Smoking Risk Factors Patient Nicotine/Smoking Risk Factors Are:: Cigarettes Recommendations Recommendations Include:: Participation in a smoking cessation program Response Code Nicotine/Smoking Response Code:: Patient communicates acknowledgment and Needs reinforcement Dyslipidemia Risk Factors Patient Dyslipidemia Risk Factors Are:: Total Cholesterol, Triglycerides, HDL and LDL Recommendations Recommendations Include:: Lipid profile not available Response Code Dyslipidemia Response Code:: Patient communicates acknowledgment and Needs r einforcement Overweight/Obesity Risk Factors Patient Overweight/Obesity Risk Factors Are:: Obesity - > or = 30 Recommendations Recommendations Include:: Weight loss of 5-10%, Reduced calorie diet and Exercise 5-7 times/week Response Code Overweight/Obesity:: Patient communicates acknowledgment and Needs reinforcement Hypertension Risk Factors Patient Hypertension Risk Factors Are:: No documented hx of HTN Recommendations Recommendations Include:: BP <130/80 if diabetic and Decrease/maintain normal body weight Response Code Hypertension:: Patient communicates acknowledgment and Needs reinforcement Heart Disease Risk Factors Patient Heart Disease Risk Factors Are:: Previous cardiac event Recommendations Recommendations Include:: Educated family members of their risk and Educated family members of importance of prevention of heart disease Response Code Heart Disease Response Code:: Patient communicates acknowledgment and Needs reinforcement Diabetes Risk Factors Patient Diabetes Risk Factors Are:: Elevated blood sugars Recommendations Recommendations Include:: Maintain fasting blood sugars 70-110 md/dL, Maintain HgbA1c of 6% or less and Decrease/maintain body weight Response Code Diabetes:: Patient communicates acknowledgment and Needs reinforcement Sedentary Risk Factors Patient Sedentary Risk Factors Are:: Lack of regular exercise Recommendations Recommendations Include:: Aerobic exercise 5-7 times/week for 20-30 minutes continuously, Benefits of regular exercise, Discussed home walking program and Monitored Outpatient Cardiac Rehab Response Code Sedentary Response Code:: Patient communicates acknowledgment and Needs reinforcement
--- NOTE | 2025-03-31 10:41 | CRPHASE1 ---
Patient Communication Patient Information PHII Cardiac Rehab Discussed with Patient:: Yes Guide to Cardiac Rehab Given to Patient:: Yes Cardiac Rehab Facility Choice List Given to Patient:: Yes Communication to Cardiac Rehab Choice Program [facility] CR PHII:: Communication Given to CR Process Equipment Operator:: Randolph Rush Phase II Cardiac Rehab:: Yes Sessions:: 36 sessions - 3 days/wk, 12 weeks Cardiac Rehabilitation Info Program Information Cardiac Rehabilitation Program Information: Cardiac Rehab The cardiac rehab team at [facility] consists of highly skilled exercise physiologists, nurses, respiratory therapists and physicians working together with you. Our purpose is to help you have a full recovery and achieve the goals you set for yourself. Over the years many of our patients have returned to activities they assumed they would never do again! We can help restore your confidence and motivation to make lifestyle changes that can have a significant impact on your health and quality of life! We can help answer questions and concerns you may have about exercise, lifestyle, medications, diet, stress and anxiety which are common following a hospitalization. WE monitor ECG and vital signs during exercise and discuss your progress with you and report to your physician(s). Cardiac Rehab is proven to help reduce readmissions, improve functional capacity and lower recurrence of problems with your heart. Our Cardiac Rehab program is Certified by the [place] [employer]Vascular and Pulmonary [employer] (AACVPR) and Accredited by the [place] [employer] through our [facility]. You can contact us at . We invite you to call us with your questions or to get started in our program. If you have other questions or concerns be sure to ask your physician/provider during your follow-up visit. WE look forward to seeing you!
--- NOTE | 2025-03-31 10:53 | CASEMGMT ---
Social Work SW?to room to meet with patient for initial transition planning/care coordination?assessment.?SW?introduced self and role at [facility].? Pt voices understanding and consents to?assessment.? Pt is A/Ox4 and answers all questions appropriately.?? Care providers, pharmacy, and demographics verified. PCP: Chelsea Self Specialists: none Preferred Pharmacy: [facility] Insurance: MCR and Medicaid Prescription Benefit:? yes Living Will/HPOA:?no, pt requesting to complete LNOK: Ross Riley, Cora Velez, daughter Living Arrangements: Pt lives in an apartment with 19 steps to enter. Pt states she is independent with all ADLs and IADLs. Pt denies any concerns with the stairs. Pt does not work due to disability Transportation:?Family states that they try to limit pt driving. Pt's and daughter provide transportation DME: ? Walker and cane. Pt uses walker for long distances only HHC/SNF: none in the past PLAN: Pt plans to return home with her spouse. Pt states her dgt lives one minute down the road and dgt confirms she is available to assist pt as needed. At this time pt denies need for home health services. CM to follow for any additional needs. SW to assist with Advance Directive completion. MALIK Buck
[2025-03-31] MEDS: Insulin Lispro 100 UNIT/ML INSULN.PEN SC ×2 (11:24→20:45)
--- NOTE | 2025-03-31 11:33 | CASEMGMT ---
Social Work SW assisted pt in completing Living Will and Health Care Power of workers compensation defense attorney naming her spouse Ross Riley. Original given to pt and copy placed on pt chart. MALIK Buck
[2025-03-31 11:49] LABS: Bedside Glucose 163 mg/dL (74-106)
[2025-03-31 14:26] LABS: ACT Activated Clotting Time 389 sec (74-137)
--- NOTE | 2025-03-31 15:33 | CHAPLAIN ---
Type of Pastoral Visit _x__ Initial Visit ___ Follow-up Visit ___ On-call Visit ___ General Patient Visit ___ Spiritual Assessment ___ Family Conference ___ Bereavement ___ Rapid Response ___ Code Blue ___ Other (describe below) Pastoral Care Referral From _x__ Patient ___ Family ___ Nurse ___ Physician ___ Marketing Researcher ___ Plastic Molder ___ Other (describe below) Sacrament/Intervention _x__ Active listening ___ Anointing ___ Yazidism ___ Bereavement ___ Communion ___ Dee exploration ___ __x_ Life review _x__ Prayer ___ Reconciliation ___ Sacrament of Sick _x__ Supportive presence ___ Wedding ___ Other (describe below) Pastoral Comments patient had stents placed today and she reviews her family's heart health history; pt sees family resemblance but also saw family have longevity; pt has dee in God but is not connected to any dee community here in [place]; pt has a cheondoism from [place] where she used to live; pt denies needs except for adding a prayer for her and his health issues;
[2025-03-31 16:49] LABS: Bedside Glucose 142 mg/dL (74-106)
[2025-03-31 20:41] LABS: Bedside Glucose 246 mg/dL (74-106)
[2025-03-31] MEDS: Acetaminophen 325 MG Tablet 650 MG PO (20:46)
[2025-03-31] MEDS: Atorvastatin Calcium 40 MG Tablet PO (20:46)
[2025-04-01 04:00] VITALS: BP 141/79; PULSE 79; PULSE 85; RESP 19; TEMP 36.4; O2SAT 92
[2025-04-01 04:39] VITALS: BMI 39.4
--- NOTE | 2025-04-01 05:44 | EKG12_ITS ---
Test Reason : post pci Blood Pressure : */* mmHG Vent. Rate : 79 BPM Atrial Rate : 79 BPM P-R Int : 150 ms QRS Dur : 72 ms QT Int : 386 ms P-R-T Axes : 91 -3 59 degrees QTcB Int : 442 ms Sinus rhythm with Premature atrial complexes Low voltage QRS Borderline ECG When compared with ECG of 31-Mar-2025 04:01, MANUAL COMPARISON REQUIRED DATA IS UNCONFIRMED Confirmed by CAT BEAVERS ([id number]), website/blog editor BRANDY BALTAZAR ([id number]) on 04/08/2025 12:36:04 PM Referred By: Baldemar Barrientos Confirmed By: CAT BEAVERS
[2025-04-01 06:38] LABS: Hematocrit 47.8 % (37-47); Hemoglobin 15.7 g/dL (12.0-15.0); Mean Corp Hgb Conc 32.8 g/dL (32-36); Mean Corpuscular Hgb 30.3 pg (27.0-32.0); Mean Corpuscular Volume 92.3 fL (81-99); Mean Platelet Vol. 9.8 fl (6.2-12.0); Platelet Count 255 K/mm3 (150-450); RBC Distribution Width CV 12.8 % (11.6-14.6); RBC Distribution Width SD 43.3 fl (35.1-43.9); Red Blood Count 5.18 M/mm3 (4.2-5.4); White Blood Count 12.2 K/mm3 (4.4-11.0)
[2025-04-01] MEDS: Ipratropium/Albuterol Sulfate 3 ML AMPUL.NEB INHALATION (06:50)
[2025-04-01 06:51] VITALS: PULSE 82; RESP 18; O2SAT 92
[2025-04-01 06:55] VITALS: PULSE 79
[2025-04-01 07:12] LABS: Cholesterol 152 mg/dL (<=200); High Density Lipoprotein 46 mg/dL; Low Density Lipoprotein Calc. 58 mg/dL; Triglycerides 238 mg/dL; Very Low Density Lipoprotein 48 mg/dL (5-40)
[2025-04-01 07:14] LABS: ALB/GLOB Ratio 1.4 RATIO (0.9-2.4); AST(SGOT) 59 U/L (<=31); Alanine Aminotransfer ALT/SGPT 22 U/L (<=34); Albumin, Serum 4.1 g/dL (3.4-4.8); Alkaline Phosphatase 93 U/L (35-104); Anion Gap 11 (5-15); BUN 11 mg/dL (4-19); BUN/Creat Ratio 16.9 RATIO (10-20); Calcium,Total 9.2 mg/dL (7.6-11.0); Carbon Dioxide 22.5 mmol/L (21.0-32.0); Chloride 102 mmol/L (98-108); Creatinine, Serum 0.64 mg/dL (0.70-1.20); EST Glomerular Filtration Rate 101 (>60); Estimated Creatinine Clearance 98.22 ml/min (50-250); Globulin 2.9 g/dL (2.2-4.2); Glucose 164 mg/dL (70-99); Potassium 4.4 mmol/L (3.3-5.1); Sodium Level 136 mmol/L (133-145); Total Bilirubin 0.47 mg/dL (0.00-1.30)
[2025-04-01] MEDS: Insulin Lispro 100 UNIT/ML INSULN.PEN SC (08:03)
[2025-04-01] MEDS: Aspirin E.C. 81 MG Tablet PO (08:03)
[2025-04-01] MEDS: Sertraline 100 MG Tablet PO (08:06)
[2025-04-01] MEDS: Montelukast 10 MG Tablet PO (08:06)
[2025-04-01] MEDS: Losartan Potassium 100 MG Tablet PO (08:06)
[2025-04-01] MEDS: Verapamil SR 180 MG CAPSULE PO (08:06)
[2025-04-01] MEDS: Enoxaparin 100 MG/ML Syringe 95 MG SC (08:07)
[2025-04-01 09:00] VITALS: BP 141/78; PULSE 82; RESP 16; TEMP 36.4; O2SAT 94
[2025-04-01 09:26] LABS: Bedside Glucose 230 mg/dL (74-106)
--- NOTE | 2025-04-01 09:54 | DS.PCM_ITS ---
Providers Date of Admission: 03/31/25 Date of Discharge: 04/01/25 Primary Care Physician: Dr. Chelsea Self MD Consultations 03/31/25 03:04 Consult: Cardiology Routine Consulting Provider: Rene Jackson Reason for Consult: Chest Pain, NSTEMI EMERGENT Consult: No MD Notified: Yes Date Notified: 03/31/25 Time Notified: 01:47 Method of Notification: Text Reason For Visit: CHEST PAIN, NSTEMI Diagnosis Discharge Diagnosis (1) Chest pain: Status: Acute Code(s): R07.9 - Chest pain, unspecified Plan Patient is a 49-year-old female admitted with chest pain. Patient was found to have elevated troponin consistent with acute non-STEMI admitted to a monitored bed for subsequent management 1. Acute non-STEMI ? Patient admitted to a monitored bed treatment initiated per protocol with antiplatelet therapy with aspirin, statin therapy with atorvastatin as well as Lovenox therapeutic dose. Consult was placed to cardiology. Patient underwent left heart catheterization with PCI to an RCA lesion ? 2D echo did show normal LV size, left ventricular systolic function was noted to be hyperdynamic the LVEF was 70% with moderate concentric left ventricular hypertrophy stage I diastolic dysfunction 2. Diabetes mellitus type 2 ? Oral antiglycemic agents held placed on Accu-Cheks ACHS with sliding scale coverage 3. Dyslipidemia ?Patient is on statin therapy, continued at home dose 4. Hypertension ? Blood pressure controlled, home medications continued with dose adjustment as needed 5. Allergic rhinitis ? Patient is on montelukast did continue 6. Depression with anxiety ? Patient is on sertraline did continue 7. Class II obesity with BMI of 39.2 ? Complicating care weight loss advised 8. Obstructive sleep apnea ? Consistent use of PAP therapy encouraged 9. COPD ? Currently not in exacerbation aerosol treatments as needed 10. Tobacco dependence ? Counseled on cessation, offered nicotine patch for tobacco cravings 11. Acute hypoxia ? Patient is is not on home oxygen. Placed on supplemental oxygen which is currently being titrated to keep saturation greater than 90. Patient will have to be assessed for home oxygen prior to being discharged 12. DVT prophylaxis ? Patient is on enoxaparin Medications at Discharge Home Medications aspirin 81 mg tablet,delayed release (Adult Aspirin Regimen) 81 mg PO DAILY heart health 11/18/19 loperamide 2 mg capsule 2 mg PO Q1-4H PRN loose stool 11/30/19 fluticasone propionate 50 mcg/actuation nasal spray,suspension (Children's Flonase Allergy Relief) 1 spray intranasal DAILY #16 grams 12/31/23 albuterol sulfate 90 mcg/actuation aerosol inhaler (Ventolin HFA) 2 puff inhalation Q3-4H PRN bronchospasm #8.5 grams 10/26/24 blood sugar diagnostic (Accu-Chek Vero Plus test strips) #100 ea 11/10/24 blood-glucose meter (Accu-Chek Guide Glucose Meter) #1 ea 11/10/24 lancets (Accu-Chek Fastclix Lancet Drum) #100 ea 11/10/24 cyclobenzaprine 10 mg tablet 10 mg PO TID PRN pain #30 tabs 12/23/24 glimepiride 4 mg tablet 4 mg PO BID diabetes #180 tabs 01/24/25 losartan 100 mg tablet 100 mg PO DAILY blood pressure #90 tabs 01/24/25 sertraline 100 mg tablet 100 mg PO DAILY mood #90 tabs 01/24/25 atorvastatin 40 mg tablet 40 mg PO DAILY cholesterol #90 tabs 01/25/25 montelukast 10 mg tablet 10 mg PO QDAY allergies #90 tabs 01/25/25 nitroglycerin 0.4 mg sublingual tablet 0.4 mg sublingual Q5-15M PRN chest pain #30 tabs 01/25/25 albuterol sulfate 2.5 mg/3 mL (0.083 %) solution for nebulization 2.5 mg (3 mL) continuous nebulization Q4H PRN PRN Wheezing #75 mL 01/31/25 tirzepatide 2.5 mg/0.5 mL subcutaneous pen injector (Mounjaro) 2.5 mg (0.5 mL) subcut QWEEK diabetes/ weight loss #2 mL 03/20/25 metoprolol tartrate 25 mg tablet 25 mg PO BID #180 tabs 04/01/25 ticagrelor 90 mg tablet (Brilinta) 90 mg PO BID 90 days #180 tabs 04/01/25 Hospital Course Summary of Care Provided Minutes Spent on Discharge: 35 Physical Exam Narrative GENERAL: cooperative HEENT: Atraumatic; normocephalic EYES; Anicteric, Normal Conjunctiva NECK; supple, normal thyroid, RESPIRATORY: Diminished to auscultation CARDIOVASCULAR: Regular S1 S2, GI: soft, normoactive bowel sounds, : No Renal angle tenderness; EXTREMITIES: No edema, no clubbing, MUSCULOSKELETAL: no muscle wasting NEURO: Awake; no lateralizing signs. SKIN: No Rash PSYCH; Flat affect Weight / BMI Weight Weight: 94.7 kg Body Mass Index (BMI) 39.4 ABG / Lab / Microbiology Data 04/01/25 06:08 04/01/25 06:08 Laboratory: Laboratory Results - last 24 hr 03/31/25 08:55: Activated Clotting Time 389 H 03/31/25 11:21: POC Glucose 163 H 03/31/25 16:29: POC Glucose 142 H 03/31/25 20:18: POC Glucose 246 H 04/01/25 06:08: WBC 12.2 H, RBC 5.18, Hgb 15.7 H, Hct 47.8 H, MCV 92.3, MCH 30.3, MCHC 32.8, RDW Std Deviation 43.3, RDW Coeff of Cecilia 12.8, Plt Count 255, MPV 9.8, Sodium 136, Potassium 4.4, Chloride 102, Carbon Dioxide 22.5, Anion Gap 11, BUN 11, Creatinine 0.64 L, Estim Creat Clear Calc 98.22, Est GFR (MDRD) Non- Af 101, BUN/Creatinine Ratio 16.9, Glucose 164 H, Calcium 9.2, Total Bilirubin 0.47, AST 59 H, ALT 22, Alkaline Phosphatase 93, Total Protein 7.0, Albumin 4.1, Globulin 2.9, Albumin/Globulin Ratio 1.4, Triglycerides 238 H, Cholesterol 152, LDL Cholesterol, Calc 58, VLDL Cholesterol 48 H, HDL Cholesterol 46, Cholesterol/HDL Ratio 3.30 04/01/25 08:02: POC Glucose 230 H D/C Instructions Discharge Diet: No restrictions Discharge Activity: Return to Normal Activity Call your doctor if you observe: Fever of 101 or Higher, Shortness of breath, Fainting spells and Chest pain DC O2, CPAP, BIPAP Needs Home O2 Discharge instructions: No Meaningful Use Info Meaningful Use Meaningful Use Diagnoses (Choose all that apply): AMI AMI/Post PCI/Angioplasty Aspirin given w/in 24hrs of arrival?: Yes ASA at discharge?: Yes Antiplatelet Therapy at Discharge:: Yes Statins at discharge?: Yes Mendoza/ARB at discharge?: Yes Beta Corrie at discharge?: Yes Done w/ Acute LA measure.: Yes Documented LVEF (%): 70 Ischemic Stroke Statin Dosing Therapy Reference: STATIN DOSE THERAPY REFERENCE: * Patients > 75 years receive moderate or high dose statin therapy. * Patients 75 years or YOUNGER should receive HIGH intensity statin dose unless contraindicated. You will be required to document reason for non-treatment if statin daily dose does not meet guidelines. HIGH DOSE STATIN THERAPY DAILY Atorvastatin > than or = to 40 mg Rosuvastatin > than or = to 20 mg Amlodipine + Atorvastatin > than or = to 2.5/40 mg Ezetimibe + Simvastatin 10/80 mg Simvastatin 80mg Discharge Plan Admission Admit Date/Time: 03/31/25 01:45 Attending Provider: Rogerio Reyez Primary Care Provider: Chelsea Self Consulting Providers: Rene Jackson; Kathy Templeton Discharge Orders/Prescriptions Prescriptions: New Brilinta 90 mg Tablet 90 mg PO BID 90 Days Qty: 180 0RF metoprolol tartrate 25 mg tablet 25 mg PO BID Qty: 180 0RF Continued aspirin [Adult Aspirin Regimen] 81 mg tablet,delayed release (DR/EC) 81 mg PO DAILY loperamide 2 mg capsule 2 mg PO Q1-4H PRN (Reason: loose stool) Rx Instructions: after each loose stool until symptoms controlled;do not exceed 16 mg total dose in 24 hrs albuterol sulfate [Ventolin HFA] 90 mcg/actuation HFA aerosol inhaler 2 puff inhalation Q3-4H PRN (Reason: bronchospasm) Qty: 8.5 2RF atorvastatin 40 mg tablet 40 mg PO DAILY Qty: 90 1RF montelukast 10 mg tablet 10 mg PO QDAY Qty: 90 1RF nitroglycerin 0.4 mg tablet, sublingual 0.4 mg SUBLINGUAL Q5-15M PRN (Reason: chest pain) Qty: 30 0RF Rx Instructions: until response; do not exceed 3 doses per episode fluticasone propionate [Children's Flonase Allergy Rlf] 50 mcg/actuation spray,suspension 1 spray intranasal DAILY Qty: 16 0RF Rx Instructions: administer into each nostril (DME) blood-glucose meter [Accu-Chek Guide Glucose Meter] Misc See Rx Instructions .Route Qty: 1 0RF Rx Instructions: Check sugars up to three times daily for DM2 (DME) Accu-Chek Vero Plus test strp Strip See Rx Instructions .Route Qty: 100 0RF Rx Instructions: Check sugars up to three times daily for DM2 (DME) lancets [Accu-Chek Fastclix Lancet Drum] Misc See Rx Instructions .Route Qty: 100 0RF Rx Instructions: Check sugars up to three times daily for DM2 cyclobenzaprine 10 mg tablet 10 mg PO TID PRN (Reason: pain) Qty: 30 0RF glimepiride 4 mg tablet 4 mg PO BID Qty: 180 0RF losartan 100 mg tablet 100 mg PO DAILY Qty: 90 0RF sertraline 100 mg tablet 100 mg PO DAILY Qty: 90 0RF albuterol sulfate 2.5 mg /3 mL (0.083 %) solution for nebulization 2.5 mg continuous nebulization Q4H PRN PRN (Reason: Wheezing) Qty: 75 0RF Mounjaro 2.5 mg/0.5 mL pen injector 2.5 mg subcut QWEEK Qty: 2 1RF Rx Instructions: for 4 weeks Discontinued verapamil 180 mg tablet extended release 180 mg PO BID Qty: 180 1RF Referrals / Follow Up: Chelsea Self MD [Primary Care Provider] - Within 2 Weeks Rene Jackson MD [Med Staff - Active Staff] - Within 2 Weeks Disposition Disposition (needs filled in before D/C Order can be placed): Home, Self Care Charges/Coding Visit Charges Inpatient E&M: 99748 Disch Hosp >30min
--- NOTE | 2025-04-01 10:00 | EKG12_ITS ---
Test Reason : CP Blood Pressure : */* mmHG Vent. Rate : 86 BPM Atrial Rate : 86 BPM P-R Int : 170 ms QRS Dur : 80 ms QT Int : 386 ms P-R-T Axes : 72 10 71 degrees QTcB Int : 461 ms Sinus rhythm with Premature atrial complexes Otherwise normal ECG No previous ECGs available Confirmed by AREN BALDERRAMA, CHAN ([id number]), film and video editor ALESSIA STALLINGS ([id number]) on 04/01/2025 6:37:44 AM Referred By: Baldemar Barrientos Confirmed By: CHAN YOUNGER MD
[2025-04-01 10:24] VITALS: O2SAT 91; O2SAT 94
--- NOTE | 2025-04-01 10:36 | CASEMGMT ---
Patient has order for discharge. Patient is discharging on Brilinta, copay is $4.80. RN CM in to discuss needs at discharge. Patient is up independent in room. Patient denies needs or help at discharge. Patient had no further questions or concerns.
--- NOTE | 2025-04-01 11:08 | PHA.DC.MC.R ---
Pharmacy [facility] Pharmacy Service has performed discharge medication reconciliation and counseling for this patient. The patient's discharge medication list was reviewed for discrepancies and discrepancies were resolved. The patient was counseled on the following discharge medications and changes in medications for homegoing were reviewed. The Reason for Use, instructions for use, and potential side effects were reviewed for all new medications. The patient's questions regarding all of their medications were answered. 1. Brilinta 90 mg PO BID 2. Metoprolol tartrate 25 mg PO BID The patient was able to verbally demonstrate an understanding of their discharge medications. Medications at Discharge Home Medications aspirin 81 mg tablet,delayed release (Adult Aspirin Regimen) 81 mg PO DAILY heart health 11/18/19 loperamide 2 mg capsule 2 mg PO Q1-4H PRN loose stool 11/30/19 fluticasone propionate 50 mcg/actuation nasal spray,suspension (Children's Flonase Allergy Relief) 1 spray intranasal DAILY #16 grams 12/31/23 albuterol sulfate 90 mcg/actuation aerosol inhaler (Ventolin HFA) 2 puff inhalation Q3-4H PRN bronchospasm #8.5 grams 10/26/24 blood sugar diagnostic (Accu-Chek Vero Plus test strips) #100 ea 11/10/24 blood-glucose meter (Accu-Chek Guide Glucose Meter) #1 ea 11/10/24 lancets (Accu-Chek Fastclix Lancet Drum) #100 ea 11/10/24 cyclobenzaprine 10 mg tablet 10 mg PO TID PRN pain #30 tabs 12/23/24 glimepiride 4 mg tablet 4 mg PO BID diabetes #180 tabs 01/24/25 losartan 100 mg tablet 100 mg PO DAILY blood pressure #90 tabs 01/24/25 sertraline 100 mg tablet 100 mg PO DAILY mood #90 tabs 01/24/25 atorvastatin 40 mg tablet 40 mg PO DAILY cholesterol #90 tabs 01/25/25 montelukast 10 mg tablet 10 mg PO QDAY allergies #90 tabs 01/25/25 nitroglycerin 0.4 mg sublingual tablet 0.4 mg sublingual Q5-15M PRN chest pain #30 tabs 01/25/25 albuterol sulfate 2.5 mg/3 mL (0.083 %) solution for nebulization 2.5 mg (3 mL) continuous nebulization Q4H PRN PRN Wheezing #75 mL 01/31/25 tirzepatide 2.5 mg/0.5 mL subcutaneous pen injector (Kristen) 2.5 mg (0.5 mL) subcut QWEEK diabetes/ weight loss #2 mL 03/20/25 metoprolol tartrate 25 mg tablet 25 mg PO BID #180 tabs 04/01/25 ticagrelor 90 mg tablet (Brilinta) 90 mg PO BID 90 days #180 tabs 04/01/25
== END 2025-04-01 11:18 | disposition home or self-care (01) | DRG 322 ==
LOC: ED 03-31 01:48 → PCU 03-31 01:57
PROVIDERS: Internal Medicine Interventional Cardiology; Admitting Provider Family Medicine; Emergency Provider Emergency Medicine; PCP Internal Medicine; Referring Provider Emergency Medicine; Visit Provider Internal Medicine
DX: I21.4 Non-ST elevation (NSTEMI) myocardial infarction (principal); E11.9 Type 2 diabetes mellitus without complications; J44.9 Chronic obstructive pulmonary disease, unspecified; I10 Essential (primary) hypertension; Z68.39 Body mass index [BMI] 39.0-39.9, adult; E78.5 Hyperlipidemia, unspecified; G47.33 Obstructive sleep apnea (adult) (pediatric); F17.210 Nicotine dependence, cigarettes, uncomplicated; J30.9 Allergic rhinitis, unspecified; F41.8 Other specified anxiety disorders; I25.10 Atherosclerotic heart disease of native coronary artery without angina pectoris; I25.84 Coronary atherosclerosis due to calcified coronary lesion; Z79.84 Long term (current) use of oral hypoglycemic drugs; Z79.891 Long term (current) use of opiate analgesic; Z82.49 Family history of ischemic heart disease and other diseases of the circulatory system; Z79.85 Long-term (current) use of injectable non-insulin antidiabetic drugs; R79.89 Other specified abnormal findings of blood chemistry; Z79.82 Long term (current) use of aspirin; Z79.02 Long term (current) use of antithrombotics/antiplatelets; R09.02 Hypoxemia; E66.9 Obesity, unspecified
CPT/HCPCS: 36415; 71046; 80048; 80053; 80061; 82962; 83036; 83735; 84484; 85025; 85027; 85347; 85379; 92928; 93005; 93306; 93458; 94640; 94668; 99152; 99153; 99284; Q9957; Q9967; A4216; C1725; C1769; C1874; C1887; C1894; C8929; C9600; J2405